=== PATIENT | male | born 1945 | race Caucasian/White ===

== ENCOUNTER 2019-05-12 10:00 | Outpatient (RCR) | payer MEDICARE, SELFPAY ==
--- NOTE | 2019-05-13 12:15 | PCCPR ---
Pt called and stated they have had second hand exposure to COVID19. Their grandson was in direct contact and they have since been in contact with him. Pt plans to hold Cardiac Rehab indefinitely.
--- NOTE | 2019-05-21 09:30 | PCCPR ---
Program is temporarily suspended due to COVID outbreak.
--- NOTE | 2019-05-28 13:35 | PCCPR ---
Called patient in regards to the temporary closure of our department continuing until at least June 25. Patient is doing well and states he is walking daily. He states he is going to start riding his bike more with his brothers. States he is feeling the best he's felt in a long time. Will mail patient temporary home exercise information. Will continue to follow patient weekly.
--- NOTE | 2019-06-04 10:36 | PCCPR ---
Called Matt today for weekly check. Matt stated that he did receive the exercise guidelines in the mail and is walking his dog daily and doing yard work and work around the house. Matt stated that he feels good and does continue to have a little soreness in his chest every now and then. Matt is currently 8 weeks post surgery so assured him that this was normal but if the pain did not go away than he should contact his physician.
--- NOTE | 2019-06-10 14:35 | PCCPR ---
Spoke with Matt states he has been walking the dog daily 15-30 min walk. He has also been doing yard work and projects. States he has carried some 5 gallon buckets filled with rock. discouraged him from carrying such a heavy bucket for now and encouraged him to clarify that with his MD. Most likely should not lift over 30 lbs until he is passed 12 weeks. He hopes to return to his [employer] he carries a drum of 15 lbs. Reviewed the use of free weight strength trng and where to find that in his packet of home materials he was eager to get that started.
--- NOTE | 2019-06-25 13:49 | PCCPR ---
Weekly update call-Left message informing patient of continued closure through the month of June due to the extension of the prison in [facility] order.
--- NOTE | 2019-07-24 14:24 | PCCPR ---
Called today to for bi-weekly check, did not answer, message left.
== END 2019-05-12 23:59 | disposition home or self-care (01) ==
LOC: ANHCPREHAB 10:00
PROVIDERS: PCP Family Medicine; Visit Provider Specialist
DX: Z95.2 Presence of prosthetic heart valve (principal)
CPT/HCPCS: 93798

== ENCOUNTER 2019-07-15 12:52 | Outpatient (RCR) | payer MEDICARE, SELFPAY ==
[2019-05-19 14:48] LABS: INR 2.6; Prothrombin Time 27.1 Seconds (11.1-14.7)
[2019-06-06 13:32] LABS: INR 2.4; Prothrombin Time 25.7 Seconds (11.1-14.7)
[2019-06-30 16:15] LABS: INR 1.4; Prothrombin Time 16.7 Seconds (11.1-14.7)
[2019-07-15 13:17] LABS: INR 1.7; Prothrombin Time 19.6 Seconds (11.1-14.7)
== END 2019-08-17 23:59 | disposition home or self-care (01) ==
LOC: ANHLAB 12:52
PROVIDERS: Visit Provider Specialist
DX: Z51.81 Encounter for therapeutic drug level monitoring (principal); Z95.4 Presence of other heart-valve replacement; Z79.01 Long term (current) use of anticoagulants
CPT/HCPCS: 36415; 85610

== ENCOUNTER 2019-08-04 14:24 | Outpatient (CLI) | payer MEDICARE, SELFPAY ==
--- NOTE | ~2019-08-04 | CT_ITS ---
EXAMINATION: CT abdomen pelvis wo con DATE: 08/04/2019 15:16 INDICATION: Bilateral kidney stones. TECHNIQUE: Computed tomography (CT) of the abdomen and pelvis was performed without intravenous contr ast. Automated exposure control and iterative reconstruction technique were employed. The dose-length product was 477.93 mGy-cm. COMPARISON: CT abdomen and pelvis 03/07/2019 FINDINGS: The visualized portions of the lung bases demonstrate mild atelectasis. A calcified right l will nodule is consistent with old granulomatous disease. No pleural effusion. The heart size is ophelia l. There are coronary artery calcifications. No pericardial effusion. The liver, gallbladder, and guerrero creas are normal. Calcifications in the spleen are consistent with old granulomatous disease. The adr enal glands and right kidney are normal. There are 3 stones in left kidney measuring up to 5 mm. The prostate is mildly enlarged. There is diverticulosis of the colon without evidence of diverticulitis. There are no dilated loops of bowel. The appendix is normal. 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 There are no pa thologically enlarged lymph nodes. There is no free intraperitoneal fluid. There is a small right ing uinal hernia containing fat. There are changes of anterior and posterior fusion procedures at L4-L5. There is moderate lumbar spondylosis. There are bridging endplate osteophytes at multiple levels in t he thoracic spine, consistent with diffuse idiopathic skeletal hyperostosis (DISH). IMPRESSION: 1. Nonobstructing left kidney stones. Reviewed, dictated and finalized at location E.
--- NOTE | ~2019-08-04 | XR_ITS ---
EXAMINATION: XR abdomen/kub 1V DATE: 08/04/2019 14:46 INDICATION: Bilateral kidney stones. TECHNIQUE: A supine view of the abdomen on 2 radiographs was obtained. COMPARISON: CT abdomen and pelvis 08/04/2019 FINDINGS: There are no dilated loops of bowel. There are phleboliths in the pelvis. There are 5 mm an d 3 mm stones in left kidney. There are changes of posterior fusion procedure at L4-L5. IMPRESSION: 1. Left kidney stones. Reviewed, dictated and finalized at location E. IMPRESSION: 1. Left kidney stones.
== END 2019-08-04 14:25 | disposition home or self-care (01) ==
LOC: ANHIMG 14:27
PROVIDERS: Visit Provider Urology
DX: N20.0 Calculus of kidney (principal)
CPT/HCPCS: 74018; 74176

== ENCOUNTER 2019-09-01 11:23 | Outpatient (CLI) | payer MEDICARE, SELFPAY ==
[2019-09-01 11:59] LABS: Prothrombin Time 12.7 Seconds (11.1-14.7)
[2019-09-01 12:00] LABS: Partial Thromboplastin Time 26.9 SECONDS (22.3-36.8)
== END 2019-09-01 11:24 | disposition home or self-care (01) ==
PROVIDERS: Visit Provider Urology
DX: N20.0 Calculus of kidney (principal)
CPT/HCPCS: 36415; 85610; 85730; 87086

== ENCOUNTER 2019-09-03 00:51 | Outpatient (CLI) | payer MEDICARE, SELFPAY ==
[2019-09-03 18:07] LABS: SARS-CoV-2 RNA PCR Negative
== END 2019-09-03 00:52 | disposition home or self-care (01) ==
LOC: ANHCOVIDDT 00:51
PROVIDERS: Visit Provider Urology
DX: Z01.812 Encounter for preprocedural laboratory examination (principal); Z11.59 Encounter for screening for other viral diseases
CPT/HCPCS: 87635; C9803; U0003

== ENCOUNTER 2019-09-05 02:17 | Day surgery (SDC) | payer MEDICARE, SELFPAY ==
[2019-08-28 11:03] VITALS: BMI 33.2
--- NOTE | ~2019-09-05 | XR_ITS ---
EXAMINATION: XR abdomen/kub 1V DATE: 09/05/2019 06:28 INDICATION: Nephrolithiasis for planned lithotripsy TECHNIQUE: A supine view of the abdomen on 2 radiographs was obtained. COMPARISON: 08/04/2019 FINDINGS: 5 mm,, 3 mm and 2 mm stones are visible at the lower pole of the left kidney. No other urolithiasis. Atherosclerotic calcifications and several phleboliths in the pelvis. Normal bowel gas pattern. L5-S1 posterior spinal fusion with bilateral vertical liberty and pedicle screw fixation. IMPRESSION: 1. Left nephrolithiasis. Reviewed, dictated and finalized at location A. IMPRESSION: 1. Left nephrolithiasis.
[2019-09-05 06:39] VITALS: BP 141/69; PULSE 68; RESP 16; TEMP 36.3; O2SAT 97
[2019-09-05] MEDS: LACTATED RINGERS 1,000 ML 30 ML IV CONT ×2 (06:39→08:17)
--- NOTE | 2019-09-05 06:52 | WPDANESEPPF ---
Anes - Initial Pre Proc Eval Procedure: Operation Date: 09/05/19 07:30 Proposed Procedures p Left Renal Extracorporeal Shock Wave Lithotripsy - Dario Shaikh MD Date/Time: 09/05/19 06:52 Surgeon: Dario Shaikh MD Pre Op Diagnosis: Left Renal Calculus Patient Data Age: 74 Gender: M Height: 5 ft 9 in Weight: 102.1 kg Allergies Allergy/AdvReac Type Severity Reaction Status Date / Time No Known Allergies Allergy Verified 08/28/19 10:14 Home Medications Medication Instructions Recorded Confirmed Type aspirin 1 tablet PO HS 01/27/19 08/28/19 History fish,bora,flax oils-om3,6,9no1 1 cap PO HS 03/13/19 08/28/19 History [[place] 3-6-9 Complex] multivitamin,za-vdwz-tgddbrbs 1 tablet PO DAILY 08/28/19 08/28/19 History [Complete Multivitamin] omeprazole magnesium [Prilosec OTC] 20 mg PO HS 08/28/19 08/28/19 History Patient hx anesthesia problems: none Family hx anesthesia problems: none [facility] Past Medical History Medical History Pryor's esophagus with dysplasia Bilateral nephrolithiasis Chronic GERD Heart murmur Nonrheumatic aortic (valve) stenosis Severe aortic stenosis TIA (transient ischemic attack) Surgical History Surgical History S/P aortic valve replacement Family History Family History Mother , 94 Family history of Alzheimer's disease Father S/P CABG x 4 currently alive-97 y/o Other Family history of arthritis Social History Social History Smoking packs per day: 1 Smoking cigarettes per day: 20.0 Years smoked: 5 Smoking pack-years: 5.00 Smoking status: Former smoker Tobacco type: cigarettes Second hand tobacco smoke exposure: No Smoking end date: 02/26/71 Alcohol intake: current Drinks per week: 5 Alcohol use details: BEER Substance use: never Substance use type: does not use Living arrangements: with family Gender identity (if verbalized by the patient): Male Spiritual care concerns: No Anes - Eval Final PreProcedure Day of Procedure 09/05/19 06:52 Patient weight: obese Heart: regular rate and rhythm Lungs: clear to auscultation Airway: Mallampati scale class II and special considerations poor opening Neurological: alert and oriented Last oral intake: >/= 8 hours ASA classification: III Emergent: no Anesthetic plan: proceed Anesthesia type and monitoring: general LMA and standard monitoring Informed Consent: The patient's anesthetic plan and its attendant risks and benefits were discussed with the patient/family/POA. Questions were solicited and answers provided to the satisfaction of the patient/family/POA.
--- NOTE | 2019-09-05 07:16 | WPDHPUPDATE1 ---
History and Physical Update Update Date/Time: 09/05/19 07:16 History and Physical has been reviewed, including an updated exam of the patient. There are NO changes in the patient's condition. Risks, benefits, and alternatives have been discussed and questions answered. Patient agrees to proceed with procedure.
[2019-09-05] MEDS: ceFAZolin 2 GM/D5W 50 ML 2 GM/50 ML BAG IVPB (07:27)
[2019-09-05 08:20] VITALS: BP 135/82; PULSE 67; RESP 10; TEMP 36.2; O2SAT 100
[2019-09-05 08:39] VITALS: BP 146/87; PULSE 64; RESP 10; O2SAT 98
[2019-09-05 08:55] VITALS: BP 146/89; PULSE 55; RESP 10; O2SAT 99
[2019-09-05 09:15] VITALS: BP 134/74; PULSE 60; RESP 16
--- NOTE | 2019-09-05 09:22 | PM.PROC ---
Procedure Note - Detailed Date of procedure: 09/05/19 Pre-op diagnosis: Left Renal Calculus Post-op diagnosis: same Procedure performed: Lithotripsy of left renal calculus 2000 shocks to the larger 8 mm stone. Five hundred shocks to the lower pole stone measuring 3-4 mm Description of procedure: Patient was taken to the operative suite and correctly identified. Once anesthesia was obtained the larger stone was visualized. And 2000 shocks appear to be for the fragmentation. We then focused on lower pole stone and gave an additional 500 shocks. Patient tolerated procedure well without complications and was taken recovery room stable condition. He is given the standard post lithotripsy instructions no follow-up in about 10-14 days with a KUB. If he develops any problems he will call us so we can deal with appropriately Anesthesia: GLMA Surgeon: Dario Shaikh MD Drains: No Packing: No Pathology: none sent Complications: No immediate complications Condition: stable Disposition: PACU
[2019-09-05 09:30] VITALS: BP 133/72; PULSE 54; RESP 14
== END 2019-09-05 09:56 | disposition home or self-care (01) ==
PROVIDERS: Visit Provider Urology
PROC: (CPT 50590; principal; 2019-09-05 07:30)
DX: N20.0 Calculus of kidney (principal); K21.9 Gastro-esophageal reflux disease without esophagitis; I35.0 Nonrheumatic aortic (valve) stenosis; Z86.73 Personal history of transient ischemic attack (TIA), and cerebral infarction without residual deficits; Z79.82 Long term (current) use of aspirin; Z87.891 Personal history of nicotine dependence; E66.9 Obesity, unspecified; Z68.33 Body mass index [BMI] 33.0-33.9, adult
CPT/HCPCS: 50590; 74018; J0131; J0690; J1100; J2405; J2704; J3010; J7120

== ENCOUNTER 2019-09-18 13:31 | Outpatient (CLI) | payer MEDICARE, SELFPAY ==
--- NOTE | ~2019-09-18 | XR_ITS ---
XR abdomen/kub 1V DATE: 09/18/2019 13:46 INDICATION: Bilateral kidney stones TECHNIQUE: AP projection, 2 views COMPARISON: 09/05/2019 KUB FINDINGS: There are are 2 small calcifications overlying the lower pole of left kidney. A larger calc ification overlying the mid lower left kidney on 09/05/2019 is not observed in No obvious right renal calcifications are noted. No evidence of bowel obstruction. Status post bilateral L5-S1 posterior fusion. Degenerative changes of the thoracic and lumbar spine. The kidney on the current examination; this appears to be currently situated at the left ureterovesic al junction. IMPRESSION: Approximately 4 mm calcified calculus at left renal vesical junction Mild nonobstructive left nephrolithiasis Reviewed, dictated and finalized at Location A. Reviewed, dictated and finalized at location B. IMPRESSION: Approximately 4 mm calcified calculus at left renal vesical junctio n Mild nonobstructive left nephrolithiasis
== END 2019-09-18 13:32 | disposition home or self-care (01) ==
LOC: ANHIMG 13:36
PROVIDERS: Visit Provider Urology
DX: N20.2 Calculus of kidney with calculus of ureter (principal)
CPT/HCPCS: 74018

== ENCOUNTER 2019-10-20 13:32 | Outpatient (CLI) | payer MEDICARE, SELFPAY ==
--- NOTE | ~2019-10-20 | XR_ITS ---
EXAMINATION: XR abdomen/kub 1V DATE: 10/20/2019 13:55 INDICATION: Bilateral renal stones TECHNIQUE: A supine view of the abdomen on 2 radiographs was obtained. COMPARISON: 09/18/[address] dated 08/04/2019 FINDINGS: 2 mm stone projecting over the lower pole of the left kidney. 4 mm stone in the region of the left ur eterovesicular junction is no longer visualized. There is a new 8 x 6 mm cluster of calcifications in jected over the region of the right ureterovesicular junction although no more proximal right-sided u rolithiasis was evident on the prior studies suggesting this is either within the bladder or superimp osed loop of bowel. Otherwise unchanged pattern of phleboliths in the pelvis. Right lower lobe calcif ied pulmonary nodule projecting over the right cardiophrenic angle. L4 laminectomy and L4-L5 instrume nted posterior spinal fusion with bilateral vertical liberty and pedicle screw fixation. IMPRESSION: 1. 2 mm stone at the lower pole of the left kidney. Prior 4 mm stone at the left ureterovesicular monica ction is no longer present at this location. 2. New 8 x 6 mm cluster of calcifications in the right hemipelvis without evident correlate on the pr ior radiographs which could represent either prior left-sided stones now in the right side of the ivonne dder or small amount of high attenuation material in the rectum. Reviewed, dictated and finalized at location A. IMPRESSION: 1. 2 mm stone at the lower pole of the left kidney. Prior 4 mm stone at the lef t ureterovesicular junction is no longer present at this location. 2. New 8 x 6 mm cluster of calcifications in the right hemipelvis without evide nt correlate on the prior radiographs which could represent either prior left-s ided stones now in the right side of the bladder or small amount of high attenu ation material in the rectum.
== END 2019-10-20 13:33 | disposition home or self-care (01) ==
PROVIDERS: Visit Provider Urology
DX: N20.2 Calculus of kidney with calculus of ureter (principal)
CPT/HCPCS: 74018

== ENCOUNTER 2020-05-28 09:06 | Outpatient (CLI) | payer MEDICARE, SELFPAY ==
[2020-05-28 09:40] LABS: Alanine Aminotransferase 28 U/L (4-50); Albumin Level 4.3 g/dL (3.5-5.1); Alkaline Phosphatase 73 U/L (38-126); Anion Gap 5 mmol/L (8-16); Aspartate Amino Transferase 29 U/L (17-59); Bilirubin,Total 1.2 mg/dL (0.2-1.3); Blood Urea Nitrogen 13 mg/dL (9-20); Calcium 8.8 mg/dL (8.4-10.2); Carbon Dioxide 28 mmol/L (22-30); Chloride 108 mmol/L (98-107); Cholesterol 249 mg/dL (0-200); Estimated Glomerular Filt Rate > 60; Glucose 95 mg/dL (75-110); HDL Direct 55 mg/dL; Potassium 4.5 mmol/L (3.4-5.0); Sodium 141 mmol/L (137-145); Triglycerides 136 mg/dL (<150)
[2020-05-28 09:49] LABS: Basophils Absolute Auto 0.1 K/mm3 (0.0-0.1); Basophils Percent Auto 0.9 % (0.2-1.2); Eosinophils Absolute Auto 0.2 K/mm3 (0-0.3); Hematocrit 44.8 % (42.0-52.0); Hemoglobin 15.3 g/dL (14.0-18.0); Immature Granulocyte Absolute 0.02 K/mm3 (0.00-0.031); Immature Granulocyte Percent A 0.3 % (0-0.5); Lymphocytes Absolute Auto 2.57 K/mm3 (0.9-3.2); Lymphocytes Percent Auto 36.6 % (18.3-44.2); Mean Corpuscular HGB Conc 34.2 g/dl (32-36); Mean Corpuscular Hemoglobin 31.5 pg (26-34); Mean Corpuscular Volume 92.2 fl (80-100); Mean Platelet Volume 9.8 fl (7.4-10.4); Monocytes Absolute Auto 0.5 K/mm3 (0.1-0.6); Monocytes Percent Auto 6.7 % (2.6-8.5); Neutrophils Absolute Auto 3.7 K/mm3 (1.3-6.7); Neutrophils Percent Auto 52.5 % (45.5-73.1); Platelet Count Result 255 k/mm3 (150-375); Red Blood Count 4.86 M/mm3 (4.6-6.20); Red Cell Distribution Width 13.3 % (11.5-14.5)
[2020-05-28 09:51] LABS: Hemoglobin A1C 5.5 % (<5.7)
[2020-05-28 09:52] LABS: Add Urine Microscopic? NO; Appearance Urine Clear (Clear); Bilirubin Urine Negative (Negative); Blood Urine Negative (Negative); Color Urine Yellow (Yellow); Glucose Urine UA Negative (Negative); Ketones Urine Negative (Negative); LDL Cholesterol Direct 158 mg/dL; Leukocyte Esterase Ur Negative LEU/UL (NEGATIVE); Nitrate Urine Negative (Negative); Protein Urine Negative (Negative); Specific Grav Ur 1.017 (1.001-1.035); Urobilinogen Urine Negative mg/dL (<2.0)
[2020-05-28 12:53] LABS: Prostate Specific Antigen 2.1 ng/mL (< OR = 4.0)
[2020-05-28 13:29] LABS: Folic Acid > 20.0 ng/mL (2.76->20)
== END 2020-05-28 09:07 | disposition home or self-care (01) ==
LOC: ANHLAB 09:14
PROVIDERS: Visit Provider Nurse Practitioner Family
DX: K21.9 Gastro-esophageal reflux disease without esophagitis (principal); R01.1 Cardiac murmur, unspecified; R53.83 Other fatigue; R73.01 Impaired fasting glucose; E78.2 Mixed hyperlipidemia; R35.1 Nocturia; Z12.5 Encounter for screening for malignant neoplasm of prostate
CPT/HCPCS: 36415; 80053; 80061; 81003; 82607; 82746; 83036; 84153; 84443; 85025; G0103

== ENCOUNTER 2020-07-13 09:01 | Outpatient (CLI) | payer MEDICARE, SELFPAY ==
--- NOTE | ~2020-07-13 | CT_ITS ---
EXAMINATION: CT brain wo con DATE: 07/13/2020 09:27 INDICATION: Dizziness. Giddiness. Lack of coordination. Blurry eyes. TECHNIQUE: Computed tomography (CT) of the head was performed without intravenous contrast. The mA wa s adjusted according to patient size. Iterative reconstruction technique was employed. Exam dose: 60 5.33 mGy-cm total exam DLP. COMPARISON: 03/09/2018 MRI brain/brainstem 03/08/2018 CT brain 03/08/2018 CTA brain/carotid FINDINGS: Bilateral carotid siphon internal carotid artery calcifications. Bilateral vertebral artery calcifications. No intracranial mass lesion or hemorrhage or cerebrovascular accident is evident. No midline shift or mass effect. Normal ventricular size. No subdural or epidural hematoma. Included paranasal sinuses and mastoid air cells are normally developed and aerated. No fracture or bone destruction of the cranial vault. IMPRESSION: No acute abnormality or significant change since 03/08/2018 Reviewed, dictated and finalized at Location A. Reviewed, dictated and finalized at location B.
== END 2020-07-13 09:02 | disposition home or self-care (01) ==
LOC: ANHIMG 09:02
PROVIDERS: Visit Provider Family Medicine
DX: R42 Dizziness and giddiness (principal)
CPT/HCPCS: 70450

== ENCOUNTER → 2020-09-04 00:15 | Outpatient (CLI) | payer MEDICARE, SELFPAY ==
[2020-09-04 21:20] LABS: SARS-CoV-2 RNA PCR Negative
== END ==
PROVIDERS: Visit Provider Internal Medicine Gastroenterology
DX: Z01.812 Encounter for preprocedural laboratory examination (principal); Z20.822 Contact with and (suspected) exposure to COVID-19
CPT/HCPCS: C9803; U0003; U0005

== ENCOUNTER 2020-09-07 01:25 | Day surgery (SDC) | payer MEDICARE, SELFPAY ==
[2020-08-20 11:46] VITALS: BMI 30.7
[2020-09-07 10:57] VITALS: BP 134/80; PULSE 66; RESP 20; TEMP 36.4; O2SAT 96
[2020-09-07] MEDS: LACTATED RINGERS 1,000 ML 150 ML IV CONT (11:00)
[2020-09-07] MEDS: AMPICILLIN 2 GM/NS 100 ML 2 GM/100 ML BAG IVPB (11:01)
--- NOTE | 2020-09-07 11:15 | WPDANESEPPF ---
Anes - Initial Pre Proc Eval Procedure: Operation Date: 09/07/20 12:15 Proposed Procedures p Esophagogastroduodenoscopy - Buck River MD Date/Time: 09/07/20 11:15 Surgeon: Buck River MD Pre Op Diagnosis: Pryor's esophagus Patient Data Age: 75 Gender: M Height: 1.78 m Weight: 101.6 kg Last Vital Signs Temp 36.4 C 09/07/20 10:57 Pulse 66 09/07/20 10:57 Resp 20 09/07/20 10:57 BP 134/80 09/07/20 10:57 Pulse Ox 96 09/07/20 10:57 Allergies Allergy/AdvReac Type Severity Reaction Status Date / Time No Known Allergies Allergy Verified 09/07/20 10:54 Home Medications Medication Instructions Recorded Confirmed Type aspirin 1 tablet PO DAILY 01/27/19 08/20/20 History fish,bora,flax oils-om3,6,9no1 1 cap PO DAILY 03/13/19 08/20/20 History [[place] 3-6-9 Complex] Complete Multivitamin 1 tablet PO DAILY 08/28/19 08/20/20 History omeprazole magnesium [Prilosec OTC] 20 mg PO DAILY 08/20/20 08/20/20 History Patient hx anesthesia problems: none Family hx anesthesia problems: none PMFSH Past Medical History Medical History Pryor's esophagus with dysplasia Bilateral nephrolithiasis Chronic GERD Heart murmur Nonrheumatic aortic (valve) stenosis Severe aortic stenosis TIA (transient ischemic attack) Surgical History Surgical History History of melanoma S/P aortic valve replacement Family History Family History Mother , 94 Family history of Alzheimer's disease Father S/P CABG x 4 currently alive-97 y/o Other Family history of arthritis Social History Social History Smoking packs per day: 1 Smoking cigarettes per day: 20.0 Years smoked: 5 Smoking pack-years: 5.00 Smoking status: Former smoker Tobacco type: cigarettes Second hand tobacco smoke exposure: No Smoking end date: 02/26/71 Alcohol intake: current Drinks per week: 5 Alcohol use details: socially Substance use: never Substance use type: does not use Living arrangements: with family Gender identity (if verbalized by the patient): Male Spiritual care concerns: No Anes - Eval Final PreProcedure Day of Procedure 09/07/20 11:15 Patient weight: obese Heart: regular rate and rhythm Lungs: clear to auscultation and normal air movement Airway: Mallampati scale class II Neurological: alert and oriented Last oral intake: >/= 8 hours ASA classification: III Emergent: no Anesthetic plan: proceed Anesthesia type and monitoring: general GIVS and standard monitoring Informed Consent: The patient's anesthetic plan and its attendant risks and benefits were discussed with the patient/family/POA. Questions were solicited and answers provided to the satisfaction of the patient/family/POA.
--- NOTE | 2020-09-07 12:16 | PM.HPGS ---
History of Present Illness History of Present Illness Consent: Risks, benefits, and alternatives have been discussed and questions answered. Patient agrees to proceed with procedure. Chief complaint: Pryor's esophagus Narrative: Janes Smith is a 75 year old male with Pryor's (treated endoscopically ~ 10 years ago because dysplasia) with several EGDs since then with last one about 3 years ago without dysplasia and used to see Dr Wagner, GERD controlled with omeprazole. Review of Systems Constitutional: Constitutional: Denies headache(s) and Denies weakness Eyes: Eyes: Denies blurry vision ENT: Reports Normal hearing present, Denies headache(s) and Denies neck pain Cardiovascular: Cardiovascular: Denies chest pain and Denies dyspnea Respiratory: Respiratory: Denies dyspnea Gastrointestinal: Gastrointestinal: Reports no additional gastrointestinal complaints Genitourinary: Genitourinary: Denies dysuria Musculoskeletal: Musculoskeletal: Denies neck pain Integumentary/Breasts: Skin/Breast: Denies dry skin Neurologic: Reports Normal hearing present, Denies headache(s) and Denies weakness Psychiatric: Psychiatric: Denies anxiety Endocrine: Endocrine: Denies change in body appearance Hematologic/Lymphatic: Hematologic/Lymphatic: Denies easy bleeding Allergic/Immunologic: Allergic/Immunologic: Denies urticaria PMFSH Past Medical History Medical History Pryor's esophagus with dysplasia Bilateral nephrolithiasis Chronic GERD Heart murmur Nonrheumatic aortic (valve) stenosis Severe aortic stenosis TIA (transient ischemic attack) Surgical History Surgical History History of melanoma S/P aortic valve replacement Family History Family History Mother , 94 Family history of Alzheimer's disease Father S/P CABG x 4 currently alive-97 y/o Other Family history of arthritis Social History Social History Smoking packs per day: 1 Smoking cigarettes per day: 20.0 Years smoked: 5 Smoking pack-years: 5.00 Smoking status: Former smoker Tobacco type: cigarettes Second hand tobacco smoke exposure: No Smoking end date: 02/26/71 Alcohol intake: current Drinks per week: 5 Alcohol use details: socially Substance use: never Substance use type: does not use Living arrangements: with family Gender identity (if verbalized by the patient): Male Spiritual care concerns: No Meds Home Medications and Allergies Home Medications Medication Instructions Recorded Confirmed Type aspirin 1 tablet PO DAILY 01/27/19 08/20/20 History fish,bora,flax oils-om3,6,9no1 1 cap PO DAILY 03/13/19 08/20/20 History [[place] 3-6-9 Complex] Complete Multivitamin 1 tablet PO DAILY 08/28/19 08/20/20 History omeprazole magnesium [Prilosec OTC] 20 mg PO DAILY 08/20/20 08/20/20 History Allergies Allergy/AdvReac Type Severity Reaction Status Date / Time No Known Allergies Allergy Verified 09/07/20 10:54 Vital Signs Vital Signs - 24 hr 09/07/20 10:57 Temperature 97.6 F Pulse Rate 66 Respiratory Rate 20 Blood Pressure 134/80 Pulse Oximetry 96 Exam Const: General: comfortable and no acute distress HENMT: General nose exam: Normal nares present Eyes: General: appearance normal, both eyes and all related structures Neck: Neck: no JVD Resp: Auscultation: clear to auscultation bilaterally Cardio: Rate: regular rate Rhythm: regular rhythm GI: Inspection: non-distended GI Palp: Yes Soft to palpation Skin: General skin exam: normal color Neuro: General: gait normal Speech: normal speech Extrem: General: normal to inspection Psych: Mental Status: mental status grossly normal Assessment and Plan Assessment and plan (1) Chronic
[2020-09-07 12:45] VITALS: BP 124/83; PULSE 58; RESP 19; O2SAT 98
[2020-09-07 12:55] VITALS: BP 133/78; PULSE 56; RESP 21; O2SAT 98
[2020-09-07 13:05] VITALS: BP 133/80; PULSE 55; RESP 18; O2SAT 98
== END 2020-09-07 13:16 | disposition home or self-care (01) ==
PROVIDERS: Visit Provider Internal Medicine Gastroenterology
PROC: 0DJ08ZZ Inspection of Upper Intestinal Tract, Via Natural or Artificial Opening Endoscopic (ICD-10-PCS; CPT 43235; principal; 2020-09-07 12:15)
DX: K21.00 Gastro-esophageal reflux disease with esophagitis, without bleeding (principal); K22.70 Barrett's esophagus without dysplasia; K44.9 Diaphragmatic hernia without obstruction or gangrene; Z79.82 Long term (current) use of aspirin; I35.8 Other nonrheumatic aortic valve disorders; Z86.73 Personal history of transient ischemic attack (TIA), and cerebral infarction without residual deficits; Z95.2 Presence of prosthetic heart valve; Z87.891 Personal history of nicotine dependence; E66.9 Obesity, unspecified; Z68.32 Body mass index [BMI] 32.0-32.9, adult
CPT/HCPCS: 43239; 88305; 88313; J0290; J1580; J2001; J2704; J7120

== ENCOUNTER 2020-09-09 14:28 | Emergency (ER) | payer MEDICARE, SELFPAY ==
[2020-09-09 14:43] VITALS: BP 158/87; PULSE 70; RESP 18; TEMP 36.6; O2SAT 98
[2020-09-09 14:58] LABS: Basophils Absolute Auto 0.1 K/mm3 (0.0-0.1); Basophils Percent Auto 0.9 % (0.2-1.2); Eosinophils Absolute Auto 0.1 K/mm3 (0-0.3); Eosinophils Percent Auto 1.5 % (0-4.4); Hematocrit 43.1 % (42.0-52.0); Hemoglobin 14.4 g/dL (14.0-18.0); Immature Granulocyte Absolute 0.01 K/mm3 (0.00-0.031); Immature Granulocyte Percent A 0.2 % (0-0.5); Lymphocytes Absolute Auto 1.48 K/mm3 (0.9-3.2); Mean Corpuscular HGB Conc 33.4 g/dl (32-36); Mean Corpuscular Hemoglobin 30.8 pg (26-34); Mean Corpuscular Volume 92.3 fl (80-100); Mean Platelet Volume 9.8 fl (7.4-10.4); Monocytes Absolute Auto 0.3 K/mm3 (0.1-0.6); Monocytes Percent Auto 6.4 % (2.6-8.5); Neutrophils Absolute Auto 3.3 K/mm3 (1.3-6.7); Platelet Count Result 221 k/mm3 (150-375); Red Blood Count 4.67 M/mm3 (4.6-6.20); Red Cell Distribution Width 13.1 % (11.5-14.5); White Blood Count 5.3 K/mm3 (4.5-10.0)
[2020-09-09 15:08] LABS: Alanine Aminotransferase 40 U/L (4-50); Albumin Level 4.4 g/dL (3.5-5.1); Alkaline Phosphatase 84 U/L (38-126); Anion Gap 11 mmol/L (8-16); Aspartate Amino Transferase 29 U/L (17-59); Bilirubin,Total 1.4 mg/dL (0.2-1.3); Blood Urea Nitrogen 15 mg/dL (9-20); Calcium 9.4 mg/dL (8.4-10.2); Carbon Dioxide 23 mmol/L (22-30); Chloride 107 mmol/L (98-107); Estimated CRCL calculation 68 ml/min; Estimated Glomerular Filt Rate > 60; Glucose 99 mg/dL (75-110); Potassium 3.9 mmol/L (3.4-5.0); Sodium 141 mmol/L (137-145)
[2020-09-09 15:23] LABS: Prothrombin Time 12.7 Seconds (11.1-14.7)
[2020-09-09 15:26] LABS: Partial Thromboplastin Time 26.4 SECONDS (22.3-36.8)
[2020-09-09 15:31] VITALS: BP 138/82; PULSE 74; RESP 18; O2SAT 96
--- NOTE | 2020-09-09 15:59 | ED.GIBLEED ---
HPI - GI Bleed General Chief complaint: GI Bleed Stated complaint: Dark Stools,Dizzy Time Seen by Provider: 09/09/20 15:32 Source: RN notes reviewed History of Present Illness HPI Narrative: Patient presents to emergency room from home for black stool. Patient states he had a bowel movement this morning that was black in color states he had had endoscopy performed by Dr. Vigil 2 days ago and the concern was a dark stool today. He states that with this he has had some mild dizziness however the patient states he has been having chronic dizziness since he received a second Covid shot in April he states has been worked up by his PCP for this and supposed be seeing neurology. He denies any new dizziness he denies any fevers or chills chest pain shortness of breath abdominal pain nausea or vomiting or any other symptoms denies any blood thinner use Related Data Home Medications Medication Instructions Recorded Confirmed aspirin 1 tablet PO DAILY 01/27/19 08/20/20 fish,bora,flax oils-om3,6,9no1 1 cap PO DAILY 03/13/19 08/20/20 [[place] 3-6-9 Complex] Complete Multivitamin 1 tablet PO DAILY 08/28/19 08/20/20 omeprazole magnesium [Prilosec OTC] 20 mg PO DAILY 08/20/20 08/20/20 Allergies Allergy/AdvReac Type Severity Reaction Status Date / Time No Known Allergies Allergy Verified 09/09/20 15:29 Review of Systems Review of Systems: Narrative: Gen.: Denies fevers or chills ENT: Denies congestion Respiratory: Denies shortness of breath or cough CV: Denies chest pain or palpitations GI: Denies abdominal pain nausea, emesis or diarrhea reports black stool Musculoskeletal: Denies back pain or muscle pain Neuro: Denies numbness, tingling, weakness or focal weakness reports chronic dizziness Skin: Denies rash Except as documented, all other systems reviewed and negative [facility] Past Medical History Medical History Pryor's esophagus with dysplasia Bilateral nephrolithiasis Chronic GERD Heart murmur Nonrheumatic aortic (valve) stenosis Severe aortic stenosis TIA (transient ischemic attack) Surgical History Surgical History History of melanoma S/P aortic valve replacement Family History Family History Mother , 94 Family history of Alzheimer's disease Father S/P CABG x 4 currently alive-97 y/o Other Family history of arthritis Social History Social History Smoking packs per day: 1 Smoking cigarettes per day: 20.0 Years smoked: 5 Smoking pack-years: 5.00 Smoking status: Former smoker Tobacco type: cigarettes Second hand tobacco smoke exposure: No Smoking end date: 02/26/71 Alcohol intake: current Drinks per week: 5 Alcohol use details: socially Substance use: never Substance use type: does not use Gender identity (if verbalized by the patient): Male Spiritual care concerns: No Exam Narrative: Exam Narrative: APPEARANCE: No acute distress, nontoxic, resting in bed EYES: EOMI HEENT: Normocephalic, atraumatic, OMM RESPIRATORY: No respiratory distress Clear to auscultation bilaterally with no rhonchi wheezing or rales. CARDIOVASCULAR: Regular rate and rhythm without murmurs rubs or gallops. ABDOMINAL: Soft, nontender, nondistended, no rebound or guarding Rectal: Hemorrhoids present with no bleeding no fissures, small amount of dark black stool is Hemoccult positive MUSCULOSKELETAl: Moves all extremities. No clubbing, cyanosis or edema. NEURO: Awake and alert. Following commands, speech normal, no focal deficits SKIN:: Warm, dry. No rashes lesions or abrasions PSYCHIATRIC: Normal affect/mood, Course Course Emergency Course: Reviewed old records patient with endoscopy performed on 09/07/[address] Vigil biopsies were obtained patient's hemoglobi
[2020-09-09 16:27] VITALS: BP 137/81; PULSE 65; RESP 22; O2SAT 94
== END 2020-09-09 16:29 | disposition home or self-care (01) ==
PROVIDERS: Emergency Medicine; Emergency Provider Emergency Medicine; PCP Family Medicine
DX: K92.2 Gastrointestinal hemorrhage, unspecified (principal); Z79.82 Long term (current) use of aspirin; Z87.891 Personal history of nicotine dependence; Z86.73 Personal history of transient ischemic attack (TIA), and cerebral infarction without residual deficits
CPT/HCPCS: 36415; 80053; 85025; 85610; 85730; 86850; 86900; 86901; 99283

== ENCOUNTER 2020-12-07 11:28 | Outpatient (CLI) | payer MEDICARE, SELFPAY ==
--- NOTE | ~2020-12-07 | XR_ITS ---
EXAMINATION: XR abdomen/kub 1V DATE: 12/07/2020 11:55 INDICATION: Bilateral kidney stones. TECHNIQUE: A supine view of the abdomen on 2 radiographs was obtained. COMPARISON: CT abdomen and pelvis 08/04/2019, abdomen radiographs 10/20/2019 FINDINGS: There are no dilated loops of bowel. There are phleboliths in the pelvis. There are two 3 m m stones in left kidney. There is a 9 mm calcification in the pelvis. There are changes of posterior fusion procedure at L5-S1. IMPRESSION: 1. Small left kidney stones. 2. 9 mm pelvic calcification, which may be a bladder stone or phlebolith. Reviewed, dictated and finalized at location A.
== END 2020-12-07 11:29 | disposition home or self-care (01) ==
LOC: ANHIMG 11:34
PROVIDERS: PCP Family Medicine; Visit Provider Urology
DX: N20.0 Calculus of kidney (principal)
CPT/HCPCS: 74018

== ENCOUNTER 2021-01-06 09:13 | Outpatient (CLI) | payer MEDICARE, SELFPAY ==
--- NOTE | ~2021-01-06 | XR_ITS ---
EXAMINATION: XR abdomen/kub 1V INDICATION: Bilateral kidney stones TECHNIQUE: Supine views of the abdomen were obtained on 2 radiographs. COMPARISON: CT from today and KUB dated 12/07/2020 FINDINGS: An 8 mm calcification of the pelvis is demonstrated to be within the urinary bladder on CT. There are at least two stones measuring 3 mm in the left kidney. Phleboliths are noted in the pelvis . No stones are identified along the expected courses of the ureters. There are changes of posterior fusion in the lower lumbar spine. There is mild osteoarthritis of the hips. IMPRESSION: 1. 8 mm stone in the urinary bladder. 2. Left nephrolithiasis. Reviewed, dictated and finalized at location B. MATED PROCESS OPERATOR
--- NOTE | ~2021-01-06 | CT_ITS ---
EXAMINATION: CT abdomen pelvis wo con DATE: 01/06/2021 09:34 INDICATION: Bilateral kidney stones, left flank pain TECHNIQUE: Computed tomography (CT) of the abdomen and pelvis was performed without intravenous contr ast. The dose-length product (DLP) was 1121.72 mGy-cm. Automated exposure control and iterative recon struction technique were employed. COMPARISON: 08/04/2019 FINDINGS: Minimal dependent atelectasis is present in the lung bases. The heart size is normal. Punct ate calcifications in an otherwise normal spleen likely represent healed granulomatous disease. The l iver, pancreas, gallbladder, and adrenal glands are normal. There are three nonobstructing stones of the left kidney which measure up to 4 mm. There is a 2 mm nonobstructing stone of the right kidney. N o stones are identified in the ureters. There is no hydronephrosis or hydroureter. An 8 mm stone is p resent in the bladder. There is mild circumferential wall thickening of the urinary bladder. No patho logically enlarged abdominal or pelvic lymph nodes are identified. There is no free intraperitoneal g as or evidence of bowel obstruction. There are changes of anterior and posterior fusion at L4-5. A fa t-containing umbilical hernia is noted. IMPRESSION: 1. 8 mm stone in the urinary bladder. 2. Bilateral nonobstructing nephrolithiasis. 3. Circumferential wall thickening of the bladder which could be due to cystitis and/or chronic outle t obstruction. Reviewed, dictated and finalized at location B. ANT COOKER IMPRESSION: 1. 8 mm stone in the urinary bladder. 2. Bilateral nonobstructing nephrolithiasis. 3. Circumferential wall thickening of the bladder which could be due to cystiti s and/or chronic outlet obstruction.
== END 2021-01-06 09:14 | disposition home or self-care (01) ==
LOC: ANHIMG 09:14
PROVIDERS: PCP Family Medicine; Visit Provider Urology
DX: N20.0 Calculus of kidney (principal); N21.0 Calculus in bladder
CPT/HCPCS: 74018; 74176

== ENCOUNTER 2021-02-09 12:57 | Outpatient (CLI) | payer MEDICARE, SELFPAY | END 2021-02-09 12:58 | disposition home or self-care (01) | LOC: ANHSURGERY 13:00 | PROVIDERS: PCP Family Medicine; Visit Provider Urology | DX: N21.0 Calculus in bladder (principal); Z01.818 Encounter for other preprocedural examination | CPT/HCPCS: 87086; 87088 ==

== ENCOUNTER 2021-03-01 00:42 | Day surgery (SDC) | payer MEDICARE, SELFPAY ==
[2021-02-07 14:03] VITALS: BMI 33.2
--- NOTE | 2021-02-07 14:09 | PC.NURSE ---
Report to the Outpatient Waiting Room, entrance under the green pavilion located off [facility], at time _0800 on date _02/15/21 . OR Time: _1000 . - You and your visitor will be asked a series of questions to screen for COVID 19 for your protection. - A mask is required within the hospital. - Only one visitor is allowed at this time. Patient visitors will be guided where to wait when not with patient. Preoperative COVID Testing Requirements: No COVID Test needed if: (proof is required; if not received patient will have Rapid Test prior to entry) - Patient has received COVID Vaccine at least 14 days prior to procedure date or - Patient has positive COVID test result within last 90 days of surgery date. COVID Test needed if above criteria is not met If not COVID vaccinated a COVID test must be conducted within 72 hours of surgery and patient is asked to isolate self from time of testing until procedure. You will go to the [facility] for your COVID testing. The [facility] is located at the corner of [address] [facility]. You will only be called if COVID results are positive and your surgeon may reschedule your elective surgery date. Patients may have clear liquids (water, carbonated beverages, clear teas, apple juice) until 3 hours prior to surgery with a maximum of 20 ounces. - No food from midnight until time of surgery - Infants may have breast milk until 4 hours before surgery, formula 6 hours prior to surgery. - Children will be allowed to drink immediately following surgery. If applicable, please bring a bottle or sippy cup to assist with drinking. Juice, water, soda, and popsicles are readily available. For infants on formula, please bring formula the day of surgery. Pacifiers are allowed. Take the following medications with a SIP of water the morning of surgery: ____NONE Medications to discontinue per physician __ALL VITAMINS AND SUPPLEMENTS 3 DAYS PRE OP Date to take last dose___02/11/21 Please no make-up, nail palestinian, hairspray, perfume, deodorant, or body powder the day of surgery. No jewelry (including any body piercings) or valuables the day of surgery, leave them at home. Please take a shower or bath the night before, or the morning of, surgery with an antibacterial soap. Wear comfortable, loose fitting clothing. Children are encouraged to wear pajamas. - Jewelry must be removed prior to entering the operating room. Rings and piercings that are not removed may be cut off. - The hospital will not accept responsibility for valuables. - Please leave all valuables, including medications, at home the day of surgery. If you are going home after surgery, a licensed stage driver must drive you home. - NO public transportation without another adult. - We recommend that an adult stay with you for 24 hours following discharge. - We also recommend that you do not drive, make important decision, drink alcoholic beverages, or take any drugs that were not prescribed by your health care provider for at least 24 hours after your discharge time. For Pediatric surgeries, we recommend two adults accompany the child home (only one inside the building at this time). Follow any additional instructions given to you from your surgeon. Telephone instructions given to __PATIENT and asked if any additional questions and then verbalized understanding. Patient advised to call surgeon office or pre surgery nurse liaison [phone] if any additional questions.
--- NOTE | 2021-02-16 09:26 | PC.NURSE ---
Addendum entered by Lorena Blanchard RN 02/16/21 09:35: PT ALSO INFORMED TO STOP OMGA 3 COMPLEX 02/25/21 - UNDERSTANDING VOICED. Original Note: Report to the Outpatient Waiting Room, entrance under the green pavilion located off [facility], at time ___1015____ on date _03/01/21__. OR Time: ____1215____. - You and your visitor will be asked a series of questions to screen for COVID 19 for your protection. - A mask is required within the hospital. - Only one visitor is allowed at this time. Patient visitors will be guided where to wait when not with patient. Preoperative COVID Testing Requirements: No COVID Test needed if: (proof is required; if not received patient will have Rapid Test prior to entry) - Patient has received COVID Vaccine at least 14 days prior to procedure date or - Patient has positive COVID test result within last 90 days of surgery date. COVID Test needed if above criteria is not met If not COVID vaccinated a COVID test must be conducted within 72 hours of surgery and patient is asked to isolate self from time of testing until procedure. You will go to the [facility] Testing Site for your COVID testing. The [facility] Testing site is located at the corner of [address] [facility]. You will only be called if COVID results are positive and your surgeon may reschedule your elective surgery date. Patients may have clear liquids (water, carbonated beverages, clear teas, apple juice) until 3 hours prior to surgery with a maximum of 20 ounces. - No food from midnight until time of surgery - Infants may have breast milk until 4 hours before surgery, formula 6 hours prior to surgery. - Children will be allowed to drink immediately following surgery. If applicable, please bring a bottle or sippy cup to assist with drinking. Juice, water, soda, and popsicles are readily available. For infants on formula, please bring formula the day of surgery. Pacifiers are allowed. Take the following medications with a SIP of water the morning of surgery: NONE Medications to discontinue per physician __MULTIVITAMIN Date to take last dose____02/25/21 Please no make-up, nail north korean, hairspray, perfume, deodorant, or body powder the day of surgery. No jewelry (including any body piercings) or valuables the day of surgery, leave them at home. Please take a shower or bath the night before, or the morning of, surgery with an antibacterial soap. Wear comfortable, loose fitting clothing. Children are encouraged to wear pajamas. - Jewelry must be removed prior to entering the operating room. Rings and piercings that are not removed may be cut off. - The hospital will not accept responsibility for valuables. - Please leave all valuables, including medications, at home the day of surgery. If you are going home after surgery, a licensed lumber stacker driver must drive you home. - NO public transportation without another adult. - We recommend that an adult stay with you for 24 hours following discharge. - We also recommend that you do not drive, make important decision, drink alcoholic beverages, or take any drugs that were not prescribed by your health care provider for at least 24 hours after your discharge time. For Pediatric surgeries, we recommend two adults accompany the child home (only one inside the building at this time). Follow any additional instructions given to you from your surgeon. Telephone instructions given to ____PT and asked if any additional questions and then verbalized understanding. Patient advised to call surgeon office or pre surgery nurse liaison [phone] if any additional questions.
[2021-03-01] VITALS (7 sets, daily range): BP systolic 124–144; BP diastolic 63–98; PULSE 60–73; RESP 12–16; TEMP 36.7–37; O2SAT 96–100
--- NOTE | 2021-03-01 07:15 | P.PNAN_ITS ---
Anes - Initial Pre Proc Eval Procedure: Operation Date: 03/01/21 12:15 Proposed Procedures p Cystoscopy, Bladder Stone Removal, - Dario Shaikh MD s Possible Holmium Laser Procedure - Dario Shaikh MD Date/Time: 03/01/21 07:15 Surgeon: Dario Shaikh MD Pre Op Diagnosis: bladder stones Patient Data Age: 75 Gender: M Height: 1.75 m Weight: 102.1 kg Allergies Allergy/AdvReac Type Severity Reaction Status Date / Time No Known Allergies Allergy Verified 03/01/21 10:23 Home Medications Medication Instructions Recorded Confirmed Type fish,bora,flax oils-om3,6,9no1 1 cap PO DAILY 03/13/19 03/01/21 History [[place] 3-6-9 Complex] Complete Multivitamin 1 tablet PO DAILY 08/28/19 03/01/21 History omeprazole 20 mg capsule,delayed 20 mg PO DAILY #90 cap 11/18/20 03/01/21 Rx release Patient hx anesthesia problems: none Family hx anesthesia problems: none Results Review: All pre-operative results and documents have been reviewed as part of the pre-operative evaluation. COUNTS INCLUDE 234 BEDS AT THE [facility] Past Medical History Medical History (Updated 01/10/21 @ 14:42 by Noel Littlejohn MD) Pryor's esophagus with dysplasia Bilateral nephrolithiasis Chronic GERD Heart murmur Nonrheumatic aortic (valve) stenosis Obesity Severe aortic stenosis TIA (transient ischemic attack) Surgical History Surgical History History of melanoma S/P aortic valve replacement Family History Family History Mother , 94 Family history of Alzheimer's disease Father S/P CABG x 4 currently alive-97 y/o Other Family history of arthritis Social History Social History Smoking packs per day: 1 Smoking cigarettes per day: 20.0 Years smoked: 5 Smoking pack-years: 5.00 Smoking status: Former smoker Tobacco type: cigarettes Second hand tobacco smoke exposure: No Smoking end date: 02/26/71 Alcohol intake: current Drinks per week: 6 Alcohol use details: socially Substance use: never Substance use type: does not use Living arrangements: with family Gender identity (if verbalized by the patient): Male Spiritual care concerns: No Anes - Eval Final PreProcedure Day of Procedure 03/01/21 07:15 Patient weight: obese Heart: regular rate and rhythm Lungs: clear to auscultation and normal air movement Airway: Mallampati scale Neurological: alert and oriented Last oral intake: >/= 8 hours ASA classification: III Emergent: no Anesthetic plan: proceed Anesthesia type and monitoring: general LMA Results Review: All pre-operative results and documents have been reviewed as part of the pre-operative evaluation. Informed Consent: The patient's anesthetic plan and its attendant risks and benefits were discussed with the patient/family/POA. Questions were solicited and answers provided to the satisfaction of the patient/family/POA.
[2021-03-01] MEDS: LACTATED RINGERS 1,000 ML 30 ML IV CONT (10:55)
[2021-03-01 11:03] LABS: Add Urine Microscopic? YES; Appearance Urine Clear (Clear); Bilirubin Urine Negative (Negative); Blood Urine Negative (Negative); Color Urine Yellow (Yellow); Glucose Urine UA Negative (Negative); Ketones Urine Negative (Negative); Leukocyte Esterase Ur Negative LEU/UL (Negative); Mucus Urine Rare /lpf; Nitrate Urine Negative (Negative); Protein Urine Negative (Negative); RBC Urine 0-2 /hpf (0-2); Specific Grav Ur 1.015 (1.001-1.035); Squamous Epithelial Cell Urine Rare /hpf (Few); Urobilinogen Urine Negative mg/dL (<2.0); WBC Urine 0-3 /hpf
--- NOTE | 2021-03-01 11:21 | WPDHPUPDATE1 ---
History and Physical Update Update Date/Time: 03/01/21 11:21 History and Physical has been reviewed, including an updated exam of the patient. There are NO changes in the patient's condition. Risks, benefits, and alternatives have been discussed and questions answered. Patient agrees to proceed with procedure.
[2021-03-01] MEDS: ceFAZolin 2 GM/D5W 50 ML 2 GM/50 ML BAG IVPB (11:41)
--- NOTE | 2021-03-01 12:08 | P.OP_ITS ---
Procedure Note - Detailed Date of Procedure 03/01/21 Pre-op Diagnosis bladder stones Post-op Diagnosis same Procedure Performed Cystoscopy with holmium laser of bladder stone and stone extraction Surgeon Dario Shaikh MD Anesthesia general Description of Procedure Patient is taken the operative suite correctly identified. Once anesthesia was obtained was placed in dorsal lithotomy position and prepped draped usual sterile fashion. Twenty-two Trinidadian scope was inserted in the bladder. He does have an obstructing prostate with an elevated median bar and median lobe. Upon entering the bladder there are no tumors noted. He does have a bladder calculus measuring about a cm. Using a large holmium laser fiber we fragmented stone multiple pieces and retrieved the largest ones were sent for analysis. 2% viscous lidocaine was inserted urethra patient is taken recovery stable condition. Patient will be discharged home. He will follow-up in 3-4 weeks time. Patient would benefit from finasteride if he is not on it as well most likely require a TURP in the future Drains No Packing No Pathology yes Complications No immediate complications Condition stable Disposition PACU
== END 2021-03-01 14:15 | disposition home or self-care (01) ==
PROVIDERS: PCP Family Medicine; Visit Provider Urology
PROC: 0TCB8ZZ Extirpation of Matter from Bladder, Via Natural or Artificial Opening Endoscopic (ICD-10-PCS; CPT 52352; principal; 2021-03-01 12:15)
PROC: (CPT 52317; 2021-03-01 12:15)
DX: N21.0 Calculus in bladder (principal); N40.0 Benign prostatic hyperplasia without lower urinary tract symptoms; K21.9 Gastro-esophageal reflux disease without esophagitis; Z86.73 Personal history of transient ischemic attack (TIA), and cerebral infarction without residual deficits; Z95.4 Presence of other heart-valve replacement; Z87.891 Personal history of nicotine dependence; E66.9 Obesity, unspecified; Z68.33 Body mass index [BMI] 33.0-33.9, adult
CPT/HCPCS: 52317; 81001; 82365; 88300; J0690; J1100; J2405; J2704; J3010; J7120

== ENCOUNTER 2021-06-24 14:44 | Emergency (ER) | payer MEDICARE, SELFPAY ==
--- NOTE | ~2021-06-24 | XR_ITS ---
EXAMINATION: XR chest 1V portable INDICATION: Cough TECHNIQUE: Portable AP chest at 1540 hours COMPARISON: 03/08/2018 FINDINGS: The lungs are free of acute opacities. There is no pleural effusion or pneumothorax. The he art size is normal. There are changes of interval cardiac valve surgery. IMPRESSION: 1. No acute cardiopulmonary abnormality. Reviewed, dictated and finalized at location B.
[2021-06-24 14:49] VITALS: BP 144/70; PULSE 84; RESP 18; TEMP 37.4; O2SAT 97
--- NOTE | 2021-06-24 15:30 | ED.SOB ---
HPI - SOB/Dyspnea General Chief Complaint: Shortness of Breath/Dyspnea Stated Complaint: recent pnuemonia, dizzy, cough Time Seen by Provider: 06/24/21 15:29 Source: patient Mode of arrival: ambulatory Limitations: no limitations History of Present Illness HPI Narrative: Patient 76 years old white male referred to the emergency room by his family physician because of cough, shortness of breath and watery eyes over the last 2 weeks. His family physician diagnosed him of pneumonia 2 weeks ago, started him on doxycycline, steroid, cough medicine with codeine and Mucinex. Patient is not getting better. History of cardiac valve replacement, GERD. Patient does not smoke, drinks occasionally, denies any fever, chills, chest pain, back pain. Tested negative for COVID twice 2 weeks ago. Related Data Home Medications Medication Instructions Recorded Confirmed fish,bora,flax oils-om3,6,9no1 1 cap PO DAILY 03/13/19 06/09/21 [[place] 3-6-9 Complex] Complete Multivitamin 1 tablet PO DAILY 08/28/19 06/09/21 Allergies Allergy/AdvReac Type Severity Reaction Status Date / Time No Known Allergies Allergy Verified 06/24/21 16:17 Review of Systems Review of Systems: CONSTITUTIONAL: Denies fever, chills, or sweats. EYES: Denies visual changes, redness, or discharge. ENT: Denies rhinorrhea, congestion, sore throat, or otalgia. CARDIOVASCULAR: Denies chest pain, palpitations, or edema. RESPIRATORY: Cough GASTROINTESTINAL: Denies abdominal pain, nausea, vomiting, or diarrhea. GENITOURINARY: Denies dysuria or hematuria. SKIN: Denies rash or itching. MUSCULOSKELETAL: Denies back pain, joint pain, or myalgia. NEUROLOGIC: Denies headache, numbness, or weakness. PSYCHIATRIC: Denies anxiety or depression. [facility] Past Medical History Medical History Pryor's esophagus with dysplasia Bilateral nephrolithiasis Chronic GERD Heart murmur Nonrheumatic aortic (valve) stenosis Obesity Severe aortic stenosis TIA (transient ischemic attack) Surgical History Surgical History History of melanoma S/P aortic valve replacement Family History Family History Mother , 94 Family history of Alzheimer's disease Father S/P CABG x 4 currently alive-97 y/o Other Family history of arthritis Social History Social History Smoking packs per day: 1 Smoking cigarettes per day: 20.0 Years smoked: 5 Smoking pack-years: 5.00 Tobacco type: cigarettes Second hand tobacco smoke exposure: No Smoking end date: 02/26/71 Alcohol intake: current Drinks per week: 6 Alcohol use details: socially Substance use: never Substance use type: does not use Gender identity (if verbalized by the patient): Male Spiritual care concerns: No Exam Narrative: General appearance: Well-developed, well-nourished Skin: Normal color Head: Normocephalic, nontraumatic Eyes: Clear conjunctiva ENT: Oropharynx normal, ears normal, nose normal Neck: Supple, nontender Chest and respiratory: Airway patent, no respiratory distress, no accessory muscle use few scattered rhonchi and coarse wheezing Heart: Regular rate/rhythm Abdomen: Soft, nontender, no organomegaly, quiet bowel sounds Vascular: Normal peripheral pulses, normal capillary refill. Musculoskeletal: Normal range of motion, nontender back Neurologic: Alert and oriented ?3, SERVICE OR WORK DISPATCHER is normal as tested, no gross motor deficit Course Vital Signs Vital signs: Vital Signs Temperature 37.4 C 04/
--- NOTE | 2021-06-24 15:32 | ECG_ITS ---
Measurements Intervals [place] Rate: 78 P: 53 WI: 151 QRS: 42 QRSD: 103 T: 45 QT: 363 QTc: 415 Interpretive Statements SINUS RHYTHM PROBABLE INFERIOR MYOCARDIAL INFARCTION NO PREVIOUS ECG AVAILABLE FOR COMPARISON Electronically Signed On 06-25-2021 13:37:07 CDT by Leigh Ann Wagoner M.D.
[2021-06-24 16:01] LABS: Basophils Absolute Auto 0.1 K/mm3 (0.0-0.1); Basophils Percent Auto 0.9 % (0.2-1.2); Eosinophils Percent Auto 0.7 % (0-4.4); Hematocrit 40.4 % (42.0-52.0); Immature Granulocyte Absolute 0.01 K/mm3 (0.00-0.031); Immature Granulocyte Percent A 0.2 % (0-0.5); Lymphocytes Percent Auto 19.1 % (18.3-44.2); Mean Corpuscular HGB Conc 34.7 g/dl (32-36); Mean Corpuscular Volume 92.4 fl (80-100); Monocytes Absolute Auto 0.6 K/mm3 (0.1-0.6); Monocytes Percent Auto 10.2 % (2.6-8.5); Neutrophils Percent Auto 68.9 % (45.5-73.1); Platelet Count Result 179 k/mm3 (150-375); Red Blood Count 4.37 M/mm3 (4.6-6.20); Red Cell Distribution Width 13.2 % (11.5-14.5); White Blood Count 5.8 K/mm3 (4.5-10.0)
[2021-06-24 16:12] LABS: Alanine Aminotransferase 33 U/L (4-50); Albumin Level 4.1 g/dL (3.5-5.1); Alkaline Phosphatase 71 U/L (38-126); Anion Gap 8 mmol/L (8-16); Aspartate Amino Transferase 34 U/L (17-59); Bilirubin,Total 1.4 mg/dL (0.2-1.3); Blood Urea Nitrogen 14 mg/dL (9-20); Calcium 8.1 mg/dL (8.4-10.2); Carbon Dioxide 24 mmol/L (22-30); Chloride 104 mmol/L (98-107); Estimated CRCL calculation 66 ml/min; Estimated Glomerular Filt Rate > 60; Glucose 108 mg/dL (65-110); Potassium 3.8 mmol/L (3.4-5.0); Sodium 136 mmol/L (137-145)
[2021-06-24 16:15] VITALS: O2SAT 94
[2021-06-24 16:21] LABS: NT Pro B Type Natriuretic Pept 213 pg/mL (5-100)
[2021-06-24 17:23] VITALS: BP 118/72; PULSE 74; RESP 22; O2SAT 94
== END 2021-06-24 17:25 | disposition home or self-care (01) ==
LOC: ANHED 16:34
PROVIDERS: Emergency Provider Emergency Medicine; PCP Family Medicine
DX: J98.01 Acute bronchospasm (principal); K22.719 Barrett's esophagus with dysplasia, unspecified; K21.9 Gastro-esophageal reflux disease without esophagitis; I35.0 Nonrheumatic aortic (valve) stenosis; E66.9 Obesity, unspecified; Z68.31 Body mass index [BMI] 31.0-31.9, adult; Z95.2 Presence of prosthetic heart valve; Z86.73 Personal history of transient ischemic attack (TIA), and cerebral infarction without residual deficits; Z87.01 Personal history of pneumonia (recurrent); Z87.442 Personal history of urinary calculi; Z85.820 Personal history of malignant melanoma of skin; Z87.891 Personal history of nicotine dependence; R94.31 Abnormal electrocardiogram [ECG] [EKG]
CPT/HCPCS: 36415; 71045; 80053; 83880; 85025; 87804; 93005; 99284

== ENCOUNTER 2021-07-12 12:03 | Outpatient (CLI) | payer MEDICARE, SELFPAY ==
[2021-07-12 12:53] LABS: Basophils Absolute Auto 0.1 K/mm3 (0.0-0.1); Basophils Percent Auto 0.9 % (0.2-1.2); Eosinophils Absolute Auto 0.1 K/mm3 (0-0.3); Hematocrit 42.8 % (42.0-52.0); Hemoglobin 14.1 g/dL (14.0-18.0); Immature Granulocyte Absolute 0.01 K/mm3 (0.00-0.031); Immature Granulocyte Percent A 0.2 % (0-0.5); Lymphocytes Absolute Auto 1.82 K/mm3 (0.9-3.2); Lymphocytes Percent Auto 33.8 % (18.3-44.2); Mean Corpuscular HGB Conc 32.9 g/dl (32-36); Mean Corpuscular Hemoglobin 30.7 pg (26-34); Mean Corpuscular Volume 93.2 fl (80-100); Mean Platelet Volume 10.1 fl (7.4-10.4); Monocytes Absolute Auto 0.4 K/mm3 (0.1-0.6); Monocytes Percent Auto 8.2 % (2.6-8.5); Neutrophils Percent Auto 54.9 % (45.5-73.1); Platelet Count Result 256 k/mm3 (150-375); Red Blood Count 4.59 M/mm3 (4.6-6.20); Red Cell Distribution Width 13.3 % (11.5-14.5); White Blood Count 5.4 K/mm3 (4.5-10.0)
[2021-07-12 13:08] LABS: Alanine Aminotransferase 25 U/L (6-50); Albumin Level 4.1 g/dL (3.5-5.1); Alkaline Phosphatase 71 U/L (38-126); Anion Gap 7 mmol/L (8-16); Aspartate Amino Transferase 27 U/L (17-59); Bilirubin,Total 1.7 mg/dL (0.2-1.3); Blood Urea Nitrogen 16 mg/dL (9-20); Calcium 8.9 mg/dL (8.4-10.2); Carbon Dioxide 25 mmol/L (22-30); Chloride 108 mmol/L (98-107); Estimated Glomerular Filt Rate > 60; Glucose 110 mg/dL (65-110); Potassium 3.9 mmol/L (3.4-5.0); Sodium 140 mmol/L (137-145)
== END 2021-07-12 12:04 | disposition home or self-care (01) ==
LOC: ANHLAB 12:06
PROVIDERS: PCP Family Medicine; Visit Provider Physician Assistant
DX: R05.9 Cough, unspecified (principal); R53.83 Other fatigue; G45.9 Transient cerebral ischemic attack, unspecified
CPT/HCPCS: 36415; 80053; 84443; 85025

== ENCOUNTER 2022-03-29 11:38 | Outpatient (CLI) | payer MEDICARE, SELFPAY ==
--- NOTE | ~2022-03-29 | XR_ITS ---
EXAMINATION: XR abdomen/kub 1V DATE: 03/29/2022 13:02 INDICATION: Bilateral kidney stones. TECHNIQUE: A supine view of the abdomen on 2 radiographs was obtained. COMPARISON: Abdomen radiographs 01/06/2021, CT abdomen and pelvis 01/06/2021 FINDINGS: There are no dilated loops of bowel. There are 3 stones in left kidney measuring up to 4 mm . There are phleboliths in the pelvis. There are changes of posterior fusion procedure at L5-S1. IMPRESSION: 1. Left kidney stones. Reviewed, dictated and finalized at location A. DENT ASSOCIATE IMPRESSION: 1. Left kidney stones.
== END 2022-03-29 11:39 | disposition home or self-care (01) ==
PROVIDERS: PCP Family Medicine; Visit Provider Urology
DX: N20.0 Calculus of kidney (principal)
CPT/HCPCS: 74018

== ENCOUNTER 2022-04-12 14:22 | Outpatient (CLI) | payer MEDICARE, SELFPAY ==
--- NOTE | ~2022-04-12 | XR_ITS ---
EXAMINATION: XR ribs BI 3V w CXR 2V INDICATION: Pleurodynia TECHNIQUE: Frontal and lateral views of the chest and 3 views of the bilateral ribs were obtained. COMPARISON: 06/24/2021 FINDINGS: There is mild atelectasis of the left lung base. No pleural effusion or pneumothorax. The h eart size is normal. There are changes of cardiac valve surgery. There are bridging osteophytes at mu ltiple levels in the spine, consistent with diffuse idiopathic skeletal hyperostosis (DISH). No displ aced rib fracture is identified. There are changes of lumbar fusion. IMPRESSION: 1. No displaced rib fracture identified. 2. Mild atelectasis of the left lung base. Reviewed, dictated and finalized at location B. ENCE CUSTODIAN
== END 2022-04-12 14:23 | disposition home or self-care (01) ==
PROVIDERS: PCP Family Medicine; Visit Provider Physician Assistant
DX: R07.81 Pleurodynia (principal); R07.89 Other chest pain; R91.8 Other nonspecific abnormal finding of lung field
CPT/HCPCS: 71046; 71110

== ENCOUNTER 2022-04-19 02:36 | Emergency (ER) | payer MEDICARE, SELFPAY ==
[2022-04-19] VITALS (32 sets, daily range): BP systolic 111–158; BP diastolic 68–92; PULSE 56–64; RESP 12–22; TEMP 36.5; O2SAT 90–97
--- NOTE | ~2022-04-19 | CT_ITS ---
Clinical Indication: Chest pain, abdominal pain CT Scan of the Chest, Abdomen, and Pelvis with Contrast: Technique: Contiguous sections were acquired throughout the chest, abdomen, and pelvis after intraven ous administration of 100 cc of Omnipaque 350. Dose reduction technique was used on this scan by uti lizing automated exposure control and iterative reconstruction technique. The dose-length product (DL P) was 1775.26 mGy-cm. Findings: There is no evidence of any significant mediastinal, hilar or axillary lymphadenopathy. Ascending aor ta is dilated to 4.8 cm in diameter. Coronary artery calcifications are present. No pulmonary embolus . Aberrant right subclavian artery noted. There is no evidence of pleural or pericardial effusion. The lungs are clear, aside from mild dependent atelectatic change. Diffuse fatty infiltration of the liver noted. The spleen, pancreas, gallbladder, adrenals and right kidney are within normal limits. Small nonobstructing left renal stones are present. No evidence of a ortic aneurysm. No lymphadenopathy. No bowel obstruction or bowel wall thickening. There is no evidence to suggest acute appendicitis. 5 mm urinary bladder stone noted. Prostate gland minimally enlarged. No ascites. Impression: No pulmonary embolus. Ascending aortic aneurysm measures 4.8 cm in diameter. Nonobstructing left nephrolithiasis. 5 mm urinary bladder stone. Diffuse fatty infiltration of the liver. Reviewed, dictated and finalized at [facility]. NIGHT Impression: No pulmonary embolus. Ascending aortic aneurysm measures 4.8 cm in diameter. Nonobstructing left nephrolithiasis. 5 mm urinary bladder stone. Diffuse fatty infiltration of the liver.
--- NOTE | ~2022-04-19 | XR_ITS ---
Clinical Indication: Pain PA and lateral views of the chest: Comparison: 04/12/2022 Findings: The lungs are clear, without evidence of focal consolidation or pleural effusion. Cardiome diastinal silhouette is stable, status post aortic valve replacement. 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 Impression: Clear lungs. Status post aortic valve replacement. Reviewed, dictated and finalized at location . PED STRAND OPERATOR Impression: Clear lungs. Status post aortic valve replacement.
--- NOTE | 2022-04-19 02:38 | ECG_ITS ---
Measurements Intervals [place] Rate: 64 P: 52 NC: 166 QRS: 30 QRSD: 109 T: 70 QT: 428 QTc: 444 Interpretive Statements SINUS RHYTHM WITH OCCASIONAL SUPRAVENTRICULAR PREMATURE COMPLEXES POSSIBLE iNFERIOR MYOCARDIAL INFARCTION , PROBABLY OLD [40+ ms Q WAVE AND/OR ST/T ABNORMALITY IN II/aVF] NONSPECIFIC T-WAVE ABNORMALITY ABNORMAL ECG COMPARED TO ECG 06/24/2021 15:47:37 NO SIGNIFICANT CHANGES Electronically Signed On 04-19-2022 13:40:54 PHARMACIST HELPER by Zaid Guajardo M.D.
[2022-04-19 03:01] LABS: Basophils Absolute Auto 0.1 K/mm3 (0.0-0.1); Basophils Percent Auto 0.8 % (0.2-1.2); Eosinophils Absolute Auto 0.2 K/mm3 (0-0.3); Eosinophils Percent Auto 1.7 % (0-4.4); Hematocrit 44.9 % (42.0-52.0); Hemoglobin 15.5 g/dL (14.0-18.0); Immature Granulocyte Absolute 0.09 K/mm3 (0.00-0.031); Immature Granulocyte Percent A 0.9 % (0-0.5); Lymphocytes Absolute Auto 4.32 K/mm3 (0.9-3.2); Lymphocytes Percent Auto 41.9 % (18.3-44.2); Mean Corpuscular HGB Conc 34.5 g/dl (32-36); Mean Corpuscular Hemoglobin 31.4 pg (26-34); Mean Corpuscular Volume 90.9 fl (80-100); Mean Platelet Volume 9.3 fl (7.4-10.4); Monocytes Absolute Auto 0.7 K/mm3 (0.1-0.6); Monocytes Percent Auto 6.5 % (2.6-8.5); Neutrophils Percent Auto 48.2 % (45.5-73.1); Platelet Count Result 274 k/mm3 (150-375); Red Blood Count 4.94 M/mm3 (4.6-6.20); Red Cell Distribution Width 13.2 % (11.5-14.5); White Blood Count 10.3 K/mm3 (4.5-10.0)
--- NOTE | 2022-04-19 03:04 | ED.GENADULT ---
HPI - General Adult General Chief complaint: Chest Pain Stated complaint: CP Time Seen by Provider: 04/19/22 02:41 History of Present Illness HPI narrative: Patient is a 76-year-old gentleman who presents the emergency department with chief complaint of chest pain. Patient reports this evening around midnight he woke up started having some uncomfortable feeling in his chest. The patient reports that he has been belching profusely since this started the patient reports that there is no radiation denies diaphoresis reports that he had a cardiac cath in 2019 prior to having a aortic valve replacement. Patient reports he has no cardiac stents Related Data Home Medications Medication Instructions Recorded Confirmed fish, borage, flaxseed oils-omega 1 cap PO DAILY 03/13/19 04/12/22 3,6,9 cb #1 400 mg-400 mg-400 mg cap ([place] 3-6-9 Complex) multivitamin,mn-rzes-ulxlaszu 1 tablet PO DAILY 08/28/19 04/12/22 (Complete Multivitamin tablet) amitriptyline 10 mg tablet 10 mg PO QHS 11/01/21 04/12/22 Allergies Allergy/AdvReac Type Severity Reaction Status Date / Time No Known Allergies Allergy Verified 04/19/22 02:44 Review of Systems Review of Systems: A 10 system review of systems was completed on the patient and is negative except for what is stated in the HPI. Nursing and ancillary documentation was reviewed. [facility] Past Medical History Medical History Pryor's esophagus with dysplasia Bilateral nephrolithiasis Chronic GERD Heart murmur Nonrheumatic aortic (valve) stenosis Obesity Severe aortic stenosis TIA (transient ischemic attack) Vestibular migraine Surgical History Surgical History History of melanoma S/P aortic valve replacement Family History Family History Mother , 94 Family history of Alzheimer's disease Father S/P CABG x 4 currently alive-97 y/o Other Family history of arthritis Social History Social History Social History: Smoking packs per day: 1 Smoking cigarettes per day: 20.0 Years smoked: 5 Smoking pack-years: 5.00 Smoking status: Former smoker (CHEWING TOBACCO) Tobacco type: cigarettes Smokeless tobacco user: chewing tobacco Second hand tobacco smoke exposure: No Smoking end date: 02/26/71 Alcohol intake: current Drinks per week: 1 Substance use: never Substance use type: does not use Living arrangements: with family Occupation/Education: retired Gender identity (if verbalized by the patient): Male Sexual Orientation (if Verbalized by the Patient): Straight or Heterosexual Spiritual care concerns: No Exam Narrative: GENERAL: Well-appearing, well-nourished, and in no acute distress. HEAD: Normocephalic, atraumatic. EYES: PERRLA and EOMI. ENT: Nares clear, no rhinorrhea or epistaxis. Mucous membranes moist. NECK: Supple. CHEST: Clear to auscultation. No respiratory distress. HEART: Regular rate and rhythm. No murmur heard. Normal peripheral pulses. ABDOMEN: Soft, nontender, nondistended, normal active bowel sounds. EXTREMITIES: Normal range of motion. No edema. SKIN: Warm, dry, no rash. NEURO: No focal deficits. Alert and oriented x3. PSYCH: Normal mood and affect. Course Vital Signs Vital signs: Vital Signs Temperature 36.5 C 04/19/22 02:39 Pulse Rate 63 04/19/22 02:39 Respiratory Rate 19 04/19/22 02:39 Blood Pressure 158/92 H 04/19/22 02:39 Pulse Oximetry 97 04/19/22 02:39 Oxygen Delivery Room Air 04/19/22 02:39 Temperature 36.5 C 04/19/22 02:39 Pulse Rate 59 L 04/19/22 04:01 Respiratory Rate 22 H 04/19/22 04:01 Blood Pressure 129/82 04/19/22 04:01 Pulse Oximetry 95 04/19/22 04:01 Oxygen Delivery Room Air
[2022-04-19 03:10] LABS: Alanine Aminotransferase 29 U/L (6-50); Albumin Level 4.5 g/dL (3.5-5.1); Alkaline Phosphatase 86 U/L (38-126); Anion Gap 9 mmol/L (8-16); Aspartate Amino Transferase 27 U/L (17-59); Bilirubin,Total 1.1 mg/dL (0.2-1.3); Blood Urea Nitrogen 17 mg/dL (9-20); Calcium 8.6 mg/dL (8.4-10.2); Carbon Dioxide 26 mmol/L (22-30); Chloride 102 mmol/L (98-107); Estimated CRCL calculation 74 ml/min; Estimated Glomerular Filt Rate > 60; Glucose 109 mg/dL (65-110); Lipase 182 U/L (23-300); Potassium 3.9 mmol/L (3.4-5.0); Sodium 137 mmol/L (137-145)
[2022-04-19 03:12] LABS: INR 0.9; Prothrombin Time 12.2 Seconds (11.1-14.7)
[2022-04-19 03:13] LABS: Partial Thromboplastin Time 25.6 SECONDS (22.3-36.8)
[2022-04-19] MEDS: NITROGLYCERIN SL 0.4 MG TABLET SUBLINGUAL (03:17)
--- NOTE | 2022-04-19 03:17 | PC.NURSE ---
0318 pt. rates cp at 8 bp 153/88 HR 61 pt. given 0.4 mg nitro sl. 0323 pt. rates cp at 8 bp 137/87 HR 64 pt. given 0.4 mg nitro sl 0326pt. reports feeling flush and sweaty. no change in cp. pt. bp 128/81, RN held third dose of nitro.
[2022-04-19 03:21] LABS: Troponin I < 0.012 ng/mL (0.000-0.034)
[2022-04-19] MEDS: MORPHINE SULFATE (*CRX) 4 MG/ML INJ IV PUSH (03:40)
[2022-04-19] MEDS: BELLADONNA ALK/PHENOB ELIX 10 ML, MAG HYDROX/ALUMINUM HYD/SIMETH 30 ML, LIDOCAINE HCL 2... PO (03:41)
[2022-04-19] MEDS: ONDANSETRON INJ 4 MG/2 ML VIAL IV PUSH (03:41)
[2022-04-19] MEDS: SODIUM CHLORIDE 0.9% IV 1,000 ML 999 ML (03:41)
[2022-04-19 06:07] LABS: Troponin I < 0.012 ng/mL (0.000-0.034)
== END 2022-04-19 06:45 | disposition home or self-care (01) ==
PROVIDERS: Emergency Provider Emergency Medicine; PCP Family Medicine
DX: R07.89 Other chest pain (principal); Z87.891 Personal history of nicotine dependence; K21.9 Gastro-esophageal reflux disease without esophagitis; I35.0 Nonrheumatic aortic (valve) stenosis
CPT/HCPCS: 36415; 71046; 71275; 74177; 80053; 83690; 84484; 85025; 85610; 85730; 93005; 96361; 96374; 96375; 99284; A9270; J2270; J2405; J7030; Q9967

== ENCOUNTER 2022-04-29 01:55 | Inpatient (IN) | payer MEDICARE, SELFPAY ==
[2022-04-29] VITALS (36 sets, daily range): BP systolic 137–177; BP diastolic 78–99; PULSE 69–83; RESP 12–24; TEMP 36.4–36.6; O2SAT 90–100; BMI 33.9
--- NOTE | ~2022-04-29 | MR_ITS ---
EXAMINATION: MR MRCP wo/w con/w 3D wo ind DATE: 04/29/2022 12:13 INDICATION: Abnormal liver function tests. Gallstones. TECHNIQUE: Magnetic resonance imaging (MRI) of the abdomen was performed without and with 20 mL Multi Parris intravenous contrast. Sequences included coronal T2-weighted FS FSE, coronal T2-weighted FSE, a xial T1-weighted LAVA, coronal FS FIESTA, axial dual-echo T1-weighted SPGR, coronal lava-FLEX, sagitt al T2-weighted FSE, axial T2-weighted FSE, and axial DWI. Thick-slab T2-weighted FSE images were obta ined for magnetic resonance cholangiopancreatography (MRCP). Maximum intensity projection 3-D reconst ructions of the volumetric data were created by the technologist. Postcontrast sequences included cor onal LAVA-flex and time course of axial T1-weighted LAVA. COMPARISON: Abdomen ultrasound 04/29/2022, CT abdomen and pelvis 04/29/2022 FINDINGS: ABDOMEN MRI: There is mild atelectasis in the lower lobes. There is diffuse hepatic steatosis. The ga llbladder is distended and contains sludge. Gallbladder wall thickening is noted. There is fat strand ing around the gallbladder. 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 The spleen, adrenal glands, and kid neys are normal. There are no dilated loops of bowel. There are changes of anterior and posterior fus ion procedures at L4-L5. ABDOMEN MRCP: The common duct is normal and measures 5 mm . IMPRESSION: 1. Normal common duct. No choledocholithiasis. 2. Acute cholecystitis. Reviewed, dictated and finalized at location A. FACTURING ENGINEER SUPERVISOR
--- NOTE | ~2022-04-29 | CT_ITS ---
EXAMINATION: CT abdomen pelvis w con DATE: 04/29/2022 03:36 INDICATION: Abdominal pain. Nausea. TECHNIQUE: Computed tomography (CT) of the abdomen and pelvis was performed with 100 mL Omnipaque 350 intravenous contrast. Automated exposure control and iterative reconstruction technique were employe d. The dose-length product was 1288.65 mGy-cm. COMPARISON: CT abdomen and pelvis 04/19/2022 FINDINGS: The visualized portions of the lung bases demonstrate mild atelectasis. No pleural effusion . The heart size is normal. There are changes of aortic valve replacement. There are coronary artery calcifications. No pericardial effusion. There is diffuse hepatic steatosis. Calcifications in the sp lalo are consistent with old granulomatous disease. The gallbladder is distended with gallbladder wal l thickening and surrounding fat stranding. There is a stone in the cystic duct. These findings are c onsistent with acute cholecystitis. The pancreas and adrenal glands are normal. There is a 1 mm stone in right kidney. There are 3 stones in left kidney measuring up to 3 mm. There are approximately 3 s tones in the bladder measuring up to 4 mm. The prostate is mildly enlarged. There is diverticulosis o f the colon without evidence of diverticulitis. There are no dilated loops of bowel. The appendix is normal. There are no pathologically enlarged lymph nodes. There is no free intraperitoneal fluid. The re are bilateral inguinal hernias containing fat. There are changes of anterior and posterior fusion procedure at L4-L5. There is moderate lumbar spondylosis. There are bridging endplate osteophytes at multiple levels in the spine, consistent with diffuse idiopathic skeletal hyperostosis (DISH). IMPRESSION: 1. Acute cholecystitis. Reviewed, dictated and finalized at location A. LY CHAIN PROCUREMENT MANAGER IMPRESSION: 1. Acute cholecystitis.
--- NOTE | ~2022-04-29 | US_ITS ---
EXAMINATION: US abdomen limited DATE: 04/29/2022 07:37 INDICATION: Right upper quadrant abdominal pain. TECHNIQUE: Multiple grayscale and Doppler ultrasound images of the abdomen were obtained. COMPARISON: CT abdomen and pelvis 04/29/2022 FINDINGS: The visualized portions of the head, body, and tail of the pancreas are normal. There is di ffuse hepatic steatosis. There is normal flow in main portal vein. The gallbladder is distended and c ontains sludge. Gallbladder wall thickening is noted. There is no sonographic Moreno sign. The recent CT showed a stone in the cystic duct. The common duct is normal and measures 4 mm. IMPRESSION: 1. Acute cholecystitis. 2. Diffuse hepatic steatosis. Reviewed, dictated and finalized at location A. CLERK
--- NOTE | 2022-04-29 02:40 | ECG_ITS ---
Measurements Intervals [place] Rate: 70 P: 45 ID: [id number] QRS: 17 QRSD: 113 T: 51 QT: 398 QTc: 430 Interpretive Statements SINUS RHYTHM DELAYED PRECORDIAL R/S TRANSITION CONSIDER INFERIOR INFARCT, AGE INDETERMINATE BORDERLINE ST-T WAVE ABNORMALITY- ANTEROLAT/HIGH LAT LEADS BASELINE ARTIFACT- AVR, AVL, AVF, V1, V6 ABNORMAL ECG COMPARED TO ECG 04/19/2022 02:43:16 NO SIGNIFICANT CHANGES Electronically Signed On 04-29-2022 6:54:26 RADIAL DRILL PRESS OPERATOR FOR PLASTIC by Sergio Estrada D.O.
[2022-04-29] MEDS: MORPHINE SULFATE (*CRX) 4 MG/ML INJ IV PUSH (02:56)
[2022-04-29] MEDS: FAMOTIDINE 20 MG/2 ML VIAL IV PUSH (02:56)
[2022-04-29] MEDS: METOCLOPRAMIDE HCL INJ 10 MG/2 ML VIAL IV PUSH (02:56)
[2022-04-29] MEDS: SODIUM CHLORIDE 0.9% IV 1,000 ML 999 ML IV CONT (02:56)
[2022-04-29] MEDS: PANTOPRAZOLE SODIUM IV 40 MG VIAL IV PUSH ×2 (02:56→09:48)
[2022-04-29 02:59] LABS: Hematocrit 43.2 % (42.0-52.0); Hemoglobin 14.9 g/dL (14.0-18.0); Immature Granulocyte Percent A 0.3 % (0-0.5); Mean Corpuscular HGB Conc 34.5 g/dl (32-36); Mean Corpuscular Hemoglobin 31.8 pg (26-34); Mean Corpuscular Volume 92.3 fl (80-100); Mean Platelet Volume 9.6 fl (7.4-10.4); Platelet Count Result 250 k/mm3 (150-375); Red Blood Count 4.68 M/mm3 (4.6-6.20); Red Cell Distribution Width 13.2 % (11.5-14.5); White Blood Count 10.1 K/mm3 (4.5-10.0)
[2022-04-29 03:00] LABS: Basophils Absolute Auto 0.1 K/mm3 (0.0-0.1); Basophils Percent Auto 0.5 % (0.2-1.2); Eosinophils Absolute Auto 0.1 K/mm3 (0-0.3); Eosinophils Percent Auto 1.3 % (0-4.4); Immature Granulocyte Absolute 0.03 K/mm3 (0.00-0.031); Lymphocytes Percent Auto 22.8 % (18.3-44.2); Monocytes Absolute Auto 0.8 K/mm3 (0.1-0.6); Monocytes Percent Auto 7.5 % (2.6-8.5); Neutrophils Absolute Auto 6.8 K/mm3 (1.3-6.7); Neutrophils Percent Auto 67.6 % (45.5-73.1)
[2022-04-29 03:03] LABS: Appearance Urine Clear (Clear); Bacteria Urine None Seen /hpf; Bilirubin Urine 1+ (Negative); Blood Urine Negative (Negative); Color Urine Dark Yellow (Yellow); Glucose Urine UA Negative (Negative); Ketones Urine 2+ mg/dL (Negative); Leukocyte Esterase Ur Trace LEU/UL (Negative); Nitrate Urine Negative (Negative); Non Pathogenic Casts 0-2; Protein Urine Negative (Negative); RBC Urine 0-2 /hpf (0-2); Specific Grav Ur 1.023 (1.001-1.035); Squamous Epithelial Cell Urine None seen /hpf (Few)
[2022-04-29 03:13] LABS: Lactic Acid Reflex 1.1 mmol/L (0.7-2.0)
[2022-04-29 03:13] LABS: Alanine Aminotransferase 28 U/L (6-50); Albumin Level 4.4 g/dL (3.5-5.1); Alkaline Phosphatase 94 U/L (38-126); Anion Gap 10 mmol/L (8-16); Aspartate Amino Transferase 25 U/L (17-59); Bilirubin,Total 2.3 mg/dL (0.2-1.3); Blood Urea Nitrogen 13 mg/dL (9-20); Calcium 9.1 mg/dL (8.4-10.2); Carbon Dioxide 26 mmol/L (22-30); Chloride 100 mmol/L (98-107); Estimated CRCL calculation 67 ml/min; Estimated Glomerular Filt Rate > 60; Glucose 123 mg/dL (65-110); Lipase 81 U/L (23-300); Magnesium 2.2 mg/dL (1.6-2.3); Potassium 3.6 mmol/L (3.4-5.0); Sodium 136 mmol/L (137-145)
[2022-04-29 03:23] LABS: Troponin I < 0.012 ng/mL (0.000-0.034)
--- NOTE | 2022-04-29 03:38 | ED.GENADULT ---
HPI - General Adult General Chief complaint: Abdominal Pain Stated complaint: abdominal pain Time Seen by Provider: 04/29/22 02:32 History of Present Illness HPI narrative: Patient 76-year-old gentleman who presents the emergency department with chief complaint of epigastric pain. Patient reports that seen in the emergency department several weeks ago and was having epigastric discomfort and belching. Patient reports that he has continued to have issues with belching and reports he is worsening whenever he lays flat and whenever he attempts to eat patient reports that he had imaging at that time that showed no acute findings patient states that the symptoms are not improved by anything. Related Data Home Medications Medication Instructions Recorded Confirmed fish, borage, flaxseed oils-omega 1 cap PO DAILY 03/13/19 04/27/22 3,6,9 cb #1 400 mg-400 mg-400 mg cap ([place] 3-6-9 Complex) multivitamin,xf-apgi-vgflrmht 1 tablet PO DAILY 08/28/19 04/27/22 (Complete Multivitamin tablet) amitriptyline 10 mg tablet 10 mg PO QHS 11/01/21 04/27/22 Allergies Allergy/AdvReac Type Severity Reaction Status Date / Time No Known Allergies Allergy Verified 04/27/22 10:23 Review of Systems Review of Systems: A 10 system review of systems was completed on the patient and is negative except for what is stated in the HPI. Nursing and ancillary documentation was reviewed. [facility] Past Medical History Medical History Pryor's esophagus with dysplasia Bilateral nephrolithiasis Chronic GERD Heart murmur Nonrheumatic aortic (valve) stenosis Obesity Severe aortic stenosis TIA (transient ischemic attack) Vestibular migraine Surgical History Surgical History History of melanoma S/P aortic valve replacement Family History Family History Mother , 94 Family history of Alzheimer's disease Father S/P CABG x 4 currently alive-97 y/o Other Family history of arthritis Social History Social History Social History: Smoking packs per day: 1 Smoking cigarettes per day: 20.0 Years smoked: 5 Smoking pack-years: 5.00 Smoking status: Former smoker (CHEWING TOBACCO) Tobacco type: cigarettes Smokeless tobacco user: chewing tobacco Second hand tobacco smoke exposure: No Smoking end date: 02/26/71 Alcohol intake: current Drinks per week: 1 Substance use: never Substance use type: does not use Living arrangements: with family Occupation/Education: retired Gender identity (if verbalized by the patient): Male Sexual Orientation (if Verbalized by the Patient): Straight or Heterosexual Spiritual care concerns: No Exam Narrative: GENERAL: Well-appearing, well-nourished, and in no acute distress. HEAD: Normocephalic, atraumatic. EYES: PERRLA and EOMI. ENT: Nares clear, no rhinorrhea or epistaxis. Mucous membranes moist. NECK: Supple. CHEST: Clear to auscultation. No respiratory distress. HEART: Regular rate and rhythm. No murmur heard. Normal peripheral pulses. ABDOMEN: Soft, tenderness to palpation in the epigastric region, nondistended, normal active bowel sounds. EXTREMITIES: Normal range of motion. No edema. SKIN: Warm, dry, no rash. NEURO: No focal deficits. Alert and oriented x3. PSYCH: Normal mood and affect. Course Vital Signs Vital signs: Vital Signs Temperature 36.4 C 04/29/22 01:58 Pulse Rate 76 04/29/22 01:58 Respiratory Rate 16 04/29/22 01:58 Blood Pressure 168/83 H 04/29/22 01:58 Pulse Oximetry 95 04/29/22 01:58 Oxygen Delivery Room Air 04/29/22 01:58 Temperature 36.4 C 04/29/22 01:58 Pulse Rate 78 04/29/22 06:30 Respiratory Rate 18 04/29/22 06:30 Blood Pressure 158/7
[2022-04-29 03:41] LABS: Add Urine Microscopic? YES
[2022-04-29] MEDS: HYDROmorphone HCL INJ (*CRX) 1 MG/ML SYR IV PUSH ×3 (03:52→22:36)
[2022-04-29 06:23] LABS: Troponin I < 0.012 ng/mL (0.000-0.034)
--- NOTE | 2022-04-29 07:11 | PC.NURSE ---
Assumed care of patient, resting on stretcher in NAD, A&Ox4. Reports he does not need any pain intervention at this time. US just came to pt room to get him for imaging.
--- NOTE | 2022-04-29 09:27 | ADMGEN ---
This patient, Janes Smith, was admitted to [facility] Surg Room 306-01. Patient/family oriented to hospital policies and general routines including ID bracelet, bed and alarms, visiting hours, pain management, procedures, bathroom and other care routines, personal items, smoking policy, room service/diet, and visiting hours. Information on how to activate the Rapid Response Team has been discussed. Patient/Family are encouraged to report perceived risks to care and to ask questions if they do not understand what they are told or what they should do.
[2022-04-29] MEDS: SODIUM CHLORIDE 0.9% IV 1,000 ML 125 ML IV CONT (09:48)
--- NOTE | 2022-04-29 10:36 | WPDGICN ---
Assessment and Plan Assessment and plan (1) Abdominal pain: Code(s): R10.9 - Unspecified abdominal pain Status: Acute Assessment and Plan: it appears that his abdominal pain is due to cholecystitis. Lipase is normal. It is possible that he had an episode of pancreatitis when this all began and he may then have passed a stone. (2) Acute cholecystitis: Code(s): K81.0 - Acute cholecystitis Status: Acute Assessment and Plan: Surgery has been consulted. I told that he will likely have his gallbladder removed within the next day or so depending on their impressions. (3) Elevated bilirubin: Code(s): R17 - Unspecified jaundice Status: Acute Assessment and Plan: Although bilirubin is elevated 2.3, and had been normal over the past few years, I do see that at 1 point it was 1.4 about 2 years ago. This raises the possibility of Gilbert's syndrome. Also, he could potentially have common bile duct stone or this could be Mirizzi's syndrome. (4) Nonrheumatic aortic (valve) stenosis: Code(s): I35.0 - Nonrheumatic aortic (valve) stenosis Status: Acute Assessment and Plan: He has had an aortic valve replacement for severe aortic stenosis (5) Pryor's esophagus with dysplasia: Code(s): K22.719 - Pryor's esophagus with dysplasia, unspecified Status: Acute Assessment and Plan: he had treatment at [facility] for Barretts esophagus with dysplasia having had radiofrequency ablation. He had follow-up at 6 months and a year and then his last EGD was about 4 years ago. At that time there was no evidence of Pryor's mucosa. He is in fact overdue for follow-up for that. Plan Obtain MRCP today to ensure that there is no common bile duct stone. Surgery has been consulted GI Consult Note Consult date/time: 04/29/22 10:36 HPI: Janes Smith is a 76 year old male who presented to the emergency room with pain that has been present for the past 2 weeks. He initially came to emergency room when he had pain in his back accompanied by belching and epigastric discomfort. At that time he was primarily investigated for cardiac disease. He states that he was slightly better for few days but his pain has returned. It is virtually constant rather than coming on in attacks. He has not been able to eat much because he simply does not feel like it. There was no vomiting. He has had no fever chills. There is no past history of liver disease pancreatitis or gallbladder disease. He does have gallstones seen on CT imaging and ultrasound shows acute cholecystitis. Although his bilirubin is elevated, 2.5, LFTs are otherwise normal and lipase is normal. Review of Systems Review of Systems: All systems reviewed & are unremarkable except as noted in HPI and below PMFSH Past Medical History Medical History Pryor's esophagus with dysplasia Bilateral nephrolithiasis Chronic GERD Heart murmur Nonrheumatic aortic (valve) stenosis Obesity Severe aortic stenosis TIA (transient ischemic attack) Vestibular migraine Surgical History Surgical History History of melanoma S/P aortic valve replacement Family History Family History Mother , 94 Family history of Alzheimer's disease Father S/P CABG x 4 currently alive-97 y/o Other Family history of arthritis Social History Social History Social History: Smoking packs per day: 1 Smoking cigarettes per day: 20.0 Years smoked: 5 Smoking pack-years: 5.00 Smoking status: Former smoker Tobacco type: cigarettes Smokeless tobacco user: chewing tobacco Second hand tobacco smoke exposure: No Smoking end date: 02/26/71 Alcohol intake: curre
--- NOTE | 2022-04-29 12:00 | PM.CNGS ---
Assessment and Plan Assessment and plan (1) Acute calculous cholecystitis: Code(s): K80.00 - Calculus of gallbladder with acute cholecystitis without obstruction Status: Acute Assessment and Plan: I have reviewed the CT and discussed the findings with the patient. He has evidence of acute calculous cholecystitis. This appears consistent with his symptoms he has had over the past couple weeks. Further workup is in place for his elevated bilirubin, but this is only mildly elevated and no findings on the imaging suggest choledocholithiasis. If MRCP is normal, then I would recommend proceeding with laparoscopic cholecystectomy, possible open if medically cleared. With this being the weekend, will possibly keep patient here and planned for surgery on Sunday. Will discuss with nursing landscaping supervisor in regards to timing. I have discussed the procedure as well as the risks, benefits, and alternatives with the patient. He is agreeable to proceeding. (2) Elevated bilirubin: Code(s): R17 - Unspecified jaundice Status: Acute (3) Ascending aortic aneurysm: Code(s): I71.21 - Aneurysm of the ascending aorta, without rupture Status: Acute (4) S/P aortic valve replacement: Code(s): Z95.2 - Presence of prosthetic heart valve Status: Acute History of Present Illness Consult details Consult date: 04/29/22 Reason for consult: gallstones Requesting physician: Francesco Kelly MD Narrative: This is a 76-year-old man who I am asked to see for possible acute cholecystitis. He presented to the emergency department this morning with worsening epigastric abdominal pain. He has had intermittent symptoms over the past month, but it has been more persistent over the past 2 weeks. He was complaining of some right flank pain that was wrapping around to front about 1 month ago thought this could be related to his prior history of kidney stones and bladder stones. He then also went to the emergency department about 2 weeks ago and was having epigastric abdominal pain. Cardiac workup and CT of the abdomen were performed but workup was essentially negative. He did notice that pain started after eating a grilled cheese sandwich, but he has not identified any other particular foods that are worsening his pain. He does have some bloating and nausea but denies any vomiting. He denies any change in bowel habits. He denies any fevers or chills. CT in the emergency department showed evidence of possible cholecystitis and cholelithiasis. He had a slightly elevated white blood count. Otherwise workup was fairly normal. His bilirubin is slightly elevated, therefore GI has been consulted as well. He has an MRCP ordered for this morning. Review of Systems Review of Systems: All systems reviewed & are unremarkable except as noted in HPI and below Constitutional: Constitutional: Denies chills and Denies fever(s) Eyes: Eyes: Denies change in vision ENT: Denies hearing loss, Denies neck pain and Denies sore throat Cardiovascular: Cardiovascular: Denies chest pain and Denies dyspnea Respiratory: Respiratory: Denies cough, Denies dyspnea and Denies wheezing Gastrointestinal: Gastrointestinal: Reports as per HPI Genitourinary: Genitourinary: Denies hematuria and Denies dysuria Musculoskeletal: Musculoskeletal: Denies arthralgias, Denies joint swelling and Denies neck pain Allergic/Immunologic: Allergic/Immunologic: Denies wheezing COUNT INCLUDES THE [facility] Past Medical History Medical History (Updated 04/29/22 @ 12:06 by Nomi Lamb DO) Pryor's esophagus with dysplasia Bilateral nephrolithiasis Chronic GERD Heart murmur Nonrheumatic aortic (valve) stenosis Obesity Severe aortic stenosis TIA (transient ischemic attack) Vestibular migraine Surgical History Surgical History (Updated 04/29/22 @ 12:06 by Nomi Lamb DO) History of melanoma S/P aortic valve replacement Family History Family His
--- NOTE | 2022-04-29 12:22 | PC.NURSE ---
patient returned to floor from [facility]
--- NOTE | 2022-04-29 13:00 | PM.IMHP ---
H&P: HPI History of Present Illness Date/Time: 04/29/22 13:00 Chief Complaint: Abdominal pain. Narrative: This is a 76-year-old male with history of GERD, Pryor esophagus, peptic ulcer disease, kidney stones, vestibular migraines, and severe aortic valve stenosis status post bioprosthetic valve replacement who presented to the emergency department from home for evaluation of abdominal pain. Patient provides the following history. He has experienced intermittent episodes of epigastric discomfort for the last 7 to 10 days associated with belching and bloating. He was seen in the emergency department on 04/19/2022 at which time he was not having abdominal discomfort. CBC, CMP, and troponins were unremarkable. EKG did not show any acute ST segment elevations or depressions and appeared unchanged from prior tracings. CT of the chest/abdomen/pelvis showed no evidence of pulmonary embolism, a 4.8 cm ascending aortic aneurysm, nonobstructing left nephrolithiasis, 5 mm urinary bladder stone, and diffuse fatty infiltration of the liver. He was discharged home and followed up with his primary care provider on 04/27/2022. He continues to have pain, mostly in the epigastric region, which seems to be worse at nighttime. His appetite has not been great and he has been trying to eat a bland diet though that does not seem to be helping with his discomfort. He continues to have issues with bloating and belching. He has had nausea but no vomiting. He denies fever, chills, and sweats. He has been avoiding NSAIDs and alcohol. He is compliant with omeprazole 20 mg daily. Right upper quadrant ultrasound was ordered and he was referred to GI for consultation given his history. Unfortunately he is not getting any better and he came back in today where imaging showed findings consistent with acute cholecystitis. He has since been started on Zosyn and he is being admitted in this setting. Review of Systems Review of Systems: Twelve systems were reviewed and are negative except for as per HPI. [facility] Past Medical History Medical History Ascending aortic aneurysm 4.8 cm in diameter on 04/19/2022. Pryor's esophagus with dysplasia Bilateral nephrolithiasis Bladder stone Chronic GERD Hepatic steatosis Melanoma Nonrheumatic aortic valve stenosis Status post bioprosthetic AVR. Obesity Peptic ulcer disease Transient ischemic attack Vestibular migraine Surgical History Surgical History History of aortic valve replacement with bioprosthetic valve History of cystoscopy History of melanoma excision Family History Family History Mother , 94 Family history of Alzheimer's disease Father S/P CABG x 4 currently alive-97 y/o Other Family history of arthritis Social History Social History (Updated 04/29/22 @ 20:22 by Latonya Jung PA-C) Social History: Surrogate medical decision maker: Tonya Garcia, spouse. Code status: Full code. Smoking packs per day: 1 Smoking cigarettes per day: 20.0 Years smoked: 5 Smoking pack-years: 5.00 Smoking status: Former smoker Tobacco type: cigarettes Smokeless tobacco user: chewing tobacco Second hand tobacco smoke exposure: No Smoking end date: 02/26/71 Alcohol intake: current Drinks per week: 1 Substance use: never Substance use type: does not use Lack of Transportation: No Lack of Food: Never True Current Housing: I Have Housing Concerned About Future Housing: No Difficulty Paying Gas/Electric Bills: No Difficulty Paying for Meds: No Currently Unemployed: No Education: Trade/Vocational Certificate Difficulty w/ Childcare or Family Care: No Living arrangements: with family Additional living arrangements comments: Lives with in [place]. Occupation/Education: retired
[2022-04-30 01:07] VITALS: BP 169/89; PULSE 76
[2022-04-30] MEDS: HYDROmorphone HCL INJ (*CRX) 1 MG/ML SYR IV PUSH ×5 (01:57→21:32)
[2022-04-30 05:25] VITALS: BP 166/97; PULSE 76; RESP 18; TEMP 36.5; O2SAT 96
[2022-04-30 06:12] LABS: Hematocrit 40.7 % (42.0-52.0); Hemoglobin 13.8 g/dL (14.0-18.0); Mean Corpuscular HGB Conc 33.9 g/dl (32-36); Mean Corpuscular Hemoglobin 31.3 pg (26-34); Mean Corpuscular Volume 92.3 fl (80-100); Mean Platelet Volume 9.9 fl (7.4-10.4); Platelet Count Result 264 k/mm3 (150-375); Red Blood Count 4.41 M/mm3 (4.6-6.20); White Blood Count 11.6 K/mm3 (4.5-10.0)
[2022-04-30 06:20] LABS: Alanine Aminotransferase 30 U/L (6-50); Albumin Level 4.2 g/dL (3.5-5.1); Alkaline Phosphatase 91 U/L (38-126); Anion Gap 10 mmol/L (8-16); Aspartate Amino Transferase 26 U/L (17-59); Bilirubin,Total 1.8 mg/dL (0.2-1.3); Blood Urea Nitrogen 9 mg/dL (9-20); Calcium 8.6 mg/dL (8.4-10.2); Carbon Dioxide 26 mmol/L (22-30); Chloride 103 mmol/L (98-107); Estimated CRCL calculation 75 ml/min; Estimated Glomerular Filt Rate > 60; Glucose 116 mg/dL (65-110); Magnesium 2.3 mg/dL (1.6-2.3); Potassium 3.7 mmol/L (3.4-5.0); Sodium 139 mmol/L (137-145)
[2022-04-30] MEDS: PANTOPRAZOLE SODIUM IV 40 MG VIAL IV PUSH (09:15)
--- NOTE | 2022-04-30 10:15 | P.PNIM_ITS ---
Progress Note: A&P Assessment and Plan (1) Acute calculous cholecystitis: Code(s): K80.00 - Calculus of gallbladder with acute cholecystitis without obstruction Status: Acute Assessment and Plan: * CT of the Abdomen/pelvis shows acute cholecystitis * Abdominal ultrasound confirmed acute cholecystitis however did show choledocholithiasis * MRCP was performed showed no blocking stone * General surgery consulted * GI consulted thank you for your help * Continue IV Zosyn for now * Surgical procedure scheduled for tomorrow * Clear liquids for now NPO after midnight * Pain medicines and antiemetics ordered (2) Elevated blood pressure reading: Code(s): R03.0 - Elevated blood-pressure reading, without diagnosis of hypertension Status: Acute Assessment and Plan: * Blood pressure 166/97 * Added hydralazine p.r.n. with parameters * No home medications * Continue to trend blood pressure * Adjust therapy as indicated (3) Elevated bilirubin: Code(s): R17 - Unspecified jaundice Status: Acute Assessment and Plan: * T bili upon arrival was 2.3 * Currently 1.8 * Most likely related to acute cholecystitis * Continue trend (4) History of Pryor's esophagus: Code(s): Z87.19 - Personal history of other diseases of the digestive system Status: Acute Assessment and Plan: * GI consulted * Patient does follow-up at [facility] * Last EGD was 4 years ago * EGD might have to wait until after surgical procedure (5) Chronic GERD: Code(s): K21.9 - Gastro-esophageal reflux disease without esophagitis Status: Acute Assessment and Plan: * Continue PPI (6) Bladder stone: Code(s): N21.0 - Calculus in bladder Status: Acute Assessment and Plan: * Incidental finding on the CT * Nonobstructing stone and 5 mm bladder stone * Can follow as an outpatient * Trend urine output * Stable Time Spent With Patient Time: 42 minutes Time with patient: Greater than 35 minutes Subjective Date/time seen: 04/30/22 1015 Interval history: 04/29/22 1015 Patient is lying in bed. Patient stated that he feels pretty okay at this time. He still does have some pain in stated the pain medicine does not get down however his current pain is a 3/10. He denies any nausea, vomiting, diarrhea, shortness of breath, chest pain fluid he does feel kind of weak because he has been lying in bed for 3 days. Vital signs are stable patient is planning to have surgery tomorrow. Blood pressure is a little elevated. 04/29/22? 13:00 This is a 76-year-old male with history of GERD, Pryor esophagus, peptic ulcer disease, kidney stones, vestibular migraines, and severe aortic valve stenosis status post bioprosthetic valve replacement who presented to the emergency department from home for evaluation of abdominal pain. Patient provides the following history. He has experienced intermittent episodes of epigastric discomfort for the last 7 to 10 days associated with belching and bloating. He was seen in the emergency department on 04/19/2022 at which time he was not having abdominal discomfort. CBC, CMP, and troponins were unremarkable. EKG did not show any acute ST segment elevations or depressions and appeared unc
--- NOTE | 2022-04-30 10:15 | PM.IMPN ---
Progress Note: A&P Assessment and Plan (1) Acute calculous cholecystitis: Code(s): K80.00 - Calculus of gallbladder with acute cholecystitis without obstruction Status: Acute Assessment and Plan: CT of the Abdomen/pelvis shows acute cholecystitis Abdominal ultrasound confirmed acute cholecystitis however did show choledocholithiasis MRCP was performed showed no blocking stone General surgery consulted GI consulted thank you for your help Continue IV Zosyn for now Surgical procedure scheduled for tomorrow Clear liquids for now NPO after midnight Pain medicines and antiemetics ordered (2) Elevated blood pressure reading: Code(s): R03.0 - Elevated blood-pressure reading, without diagnosis of hypertension Status: Acute Assessment and Plan: Blood pressure 166/97 Added hydralazine p.r.n. with parameters No home medications Continue to trend blood pressure Adjust therapy as indicated (3) Elevated bilirubin: Code(s): R17 - Unspecified jaundice Status: Acute Assessment and Plan: T bili upon arrival was 2.3 Currently 1.8 Most likely related to acute cholecystitis Continue trend (4) History of Pryor's esophagus: Code(s): Z87.19 - Personal history of other diseases of the digestive system Status: Acute Assessment and Plan: GI consulted Patient does follow-up at [place] Last EGD was 4 years ago EGD might have to wait until after surgical procedure (5) Chronic GERD: Code(s): K21.9 - Gastro-esophageal reflux disease without esophagitis Status: Acute Assessment and Plan: Continue PPI (6) Bladder stone: Code(s): N21.0 - Calculus in bladder Status: Acute Assessment and Plan: Incidental finding on the CT Nonobstructing stone and 5 mm bladder stone Can follow as an outpatient Trend urine output Stable Time Spent With Patient Time: 42 minutes Time with patient: Greater than 35 minutes Subjective Date/time seen: 04/30/22 1015 Interval history: 04/29/22 1015 Patient is lying in bed. Patient stated that he feels pretty okay at this time. He still does have some pain in stated the pain medicine does not get down however his current pain is a 3/10. He denies any nausea, vomiting, diarrhea, shortness of breath, chest pain fluid he does feel kind of weak because he has been lying in bed for 3 days. Vital signs are stable patient is planning to have surgery tomorrow. Blood pressure is a little elevated. 04/29/22? 13:00 This is a 76-year-old male with history of GERD, Pryor esophagus, peptic ulcer disease, kidney stones, vestibular migraines, and severe aortic valve stenosis status post bioprosthetic valve replacement who presented to the emergency department from home for evaluation of abdominal pain. Patient provides the following history. He has experienced intermittent episodes of epigastric discomfort for the last 7 to 10 days associated with belching and bloating. He was seen in the emergency department on 04/19/2022 at which time he was not having abdominal discomfort. CBC, CMP, and troponins were unremarkable. EKG did not show any acute ST segment elevations or depressions and appeared unchanged from prior tracings. CT of the chest/abdomen/pelvis showed no evidence of pulmonary embolism, a 4.8 cm ascending aortic aneurysm, nonobstructing left nephrolithiasis, 5 mm urinary bladder stone, and diffuse fatty infiltration of the liver. He was discharged home and followed up with his primary care provider on 04/27/2022. He continues to have pain, mostly in the epigastric region, which seems to be worse at nighttime. His appetite has not been great and he has been trying to eat a bland diet though that does not seem to be helping with his discomfort. He continues to have issues with bloating
--- NOTE | 2022-04-30 10:52 | PM.PNGS ---
Progress Note: A&P Assessment and Plan (1) Acute calculous cholecystitis: Code(s): K80.00 - Calculus of gallbladder with acute cholecystitis without obstruction Status: Acute Assessment and Plan: Patient still having pain. Will add IV Tylenol for moderate pain. Recommend proceeding with surgery tomorrow. Patient in agreement. (2) S/P aortic valve replacement: Code(s): Z95.2 - Presence of prosthetic heart valve Status: Acute (3) Ascending aortic aneurysm: Code(s): I71.21 - Aneurysm of the ascending aorta, without rupture Status: Acute Subjective Subjective Date/Time Seen: 04/30/22 10:52 Interval history: Still having epigastric pain. No nausea/vomiting. No fevers. Exam GI: Inspection: non-distended GI Palp: Yes Soft to palpation and Yes Tenderness to palpation present (GI) (epigastric) Objective Data Vital Signs Vital Signs: Vital Signs - 24 hr 04/29/22 13:59 04/29/22 12:30 04/29/22 21:24 Temperature 36.4 C 36.6 C Pulse Rate 82 80 79 Respiratory Rate 16 18 Blood Pressure 161/88 H 167/92 H Pulse Oximetry 97 95 Oxygen Delivery 04/29/22 20:00 04/30/22 01:07 04/30/22 05:25 Temperature 36.5 C Pulse Rate 76 76 Respiratory Rate 18 Blood Pressure 169/89 H 166/97 H Pulse Oximetry 96 Oxygen Delivery Room Air Intake/Output Intake/Output: Intake & Output 04/27/22 04/28/22 04/29/22 04/30/22 23:59 23:59 23:59 23:59 Intake Total 1625 368 Balance 1625 368 Meds/Results Medications: Active Medications Generic Name Dose Route Start Last Admin Trade Name Freq PRN Reason Stop Dose Admin Amitriptyline HCl 10 mg 04/29/22 13:28 Amitriptyline Hcl 10 Mg Tablet PO QHS PRN Migraine Headache Hydromorphone HCl 1 mg 04/30/22 01:40 04/30/22 09:15 Hydromorphone Hcl Inj (*Crx) 1 Mg/Ml Syr IV PUSH 1 mg Q3H PRN Administration Pain Rated 7-10 Piperacillin/Tazobactam/Dextrose 3.375 gm in 50 mls @ 100 mls/hr 04/29/22 12:00 04/30/22 06:12 Zosyn 3.375 Gm/D5w 50ml Pm IVPB Infused Q6H PHILLIP Infusion Acetaminophen 1,000 mg in 100 mls @ 400 mls/hr 04/30/22 10:45 Ofirmev 1,000 Mg Ivpb IVPB 05/01/22 10:44 Q6H PRN Pain Rated 4-6 Ondansetron HCl 4 mg 04/29/22 07:12 Ondansetron Inj 4 Mg/2 Ml Vial IV PUSH Q4H PRN Nausea Pantoprazole Sodium 40 mg 04/29/22 09:00 04/30/22 09:15 Pantoprazole Sodium Iv 40 Mg Vial IV PUSH 40 mg QAM PHILLIP Administration Radiology Results: ITS Impressions Abdomen Ultrasound 04/29/22 07:38 IMPRESSION: 1. Acute cholecystitis. 2. Diffuse hepatic steatosis. Abdomen/Pelvis CT 04/29/22 07:41 IMPRESSION: 1. Acute cholecystitis. MRCP 04/29/22 12:18 IMPRESSION: 1. Normal common duct. No choledocholithiasis. 2. Acute cholecystitis. Labs Labs: Laboratory Results - last 24 hr 04/30/22 04/30/22 05:37 05:37 WBC 11.6 H RBC 4.41 L Hgb 13.8 L Hct 40.7 L MCV 92.3 MCH 31.3 MCHC 33.9 RDW 13.0 Plt Count 264 MPV 9.9 Sodium 139 Potassium 3.7 Chloride 103 Carbon Dioxide 26 Anion Gap 10 BUN 9 Creatinine 0.90 Estim Creat Clear Calc 75 Estimated GFR > 60 Glucose 116 H Calcium 8.6 Magnesium 2.3 Total Bilirubin 1.8 H Direct Bilirubin 0.0 AST 26 ALT 30 Alkaline Phosphatase 91 Total Protein 7.0 Albumin 4.2
[2022-04-30 14:00] VITALS: BP 131/83; PULSE 87; RESP 24; TEMP 37.2; O2SAT 94
[2022-04-30 20:00] VITALS: PULSE 87; RESP 18; O2SAT 91
[2022-04-30 21:26] VITALS: BP 164/81; PULSE 87; RESP 18; TEMP 36.8; O2SAT 91
[2022-05-01] VITALS (16 sets, daily range): BP systolic 112–157; BP diastolic 62–90; PULSE 85–104; RESP 14–18; TEMP 36.3–38.3; O2SAT 89–98; BMI 33.5
[2022-05-01] MEDS: HYDROmorphone HCL INJ (*CRX) 1 MG/ML SYR IV PUSH ×3 (01:36→08:35)
[2022-05-01 07:19] LABS: Basophils Absolute Auto 0.1 K/mm3 (0.0-0.1); Basophils Percent Auto 0.4 % (0.2-1.2); Eosinophils Percent Auto 0.3 % (0-4.4); Hematocrit 41.2 % (42.0-52.0); Hemoglobin 14.1 g/dL (14.0-18.0); Immature Granulocyte Absolute 0.04 K/mm3 (0.00-0.031); Immature Granulocyte Percent A 0.3 % (0-0.5); Lymphocytes Absolute Auto 1.14 K/mm3 (0.9-3.2); Lymphocytes Percent Auto 9.5 % (18.3-44.2); Mean Corpuscular HGB Conc 34.2 g/dl (32-36); Mean Corpuscular Hemoglobin 31.6 pg (26-34); Mean Corpuscular Volume 92.4 fl (80-100); Monocytes Absolute Auto 0.9 K/mm3 (0.1-0.6); Monocytes Percent Auto 7.1 % (2.6-8.5); Neutrophils Absolute Auto 9.9 K/mm3 (1.3-6.7); Neutrophils Percent Auto 82.4 % (45.5-73.1); Platelet Count Result 259 k/mm3 (150-375); Red Blood Count 4.46 M/mm3 (4.6-6.20)
[2022-05-01 07:31] LABS: Potassium 3.3 mmol/L (3.4-5.0)
[2022-05-01 07:40] LABS: Alanine Aminotransferase 38 U/L (6-50); Alkaline Phosphatase 108 U/L (38-126); Anion Gap 9 mmol/L (8-16); Aspartate Amino Transferase 33 U/L (17-59); Blood Urea Nitrogen 10 mg/dL (9-20); Calcium 8.5 mg/dL (8.4-10.2); Carbon Dioxide 27 mmol/L (22-30); Chloride 100 mmol/L (98-107); Estimated CRCL calculation 75 ml/min; Estimated Glomerular Filt Rate > 60; Glucose 115 mg/dL (65-110); Sodium 136 mmol/L (137-145)
[2022-05-01] MEDS: PANTOPRAZOLE SODIUM IV 40 MG VIAL IV PUSH (08:31)
[2022-05-01] MEDS: CHLORHEXIDINE GLUCONATE 4% SOL 120 ML BTL 1 APPLIC TOPICAL (08:32)
[2022-05-01] MEDS: LACTATED RINGERS 1,000 ML 30 ML IV CONT ×2 (09:50→12:21)
--- NOTE | 2022-05-01 10:27 | WPDANESEPPF ---
Anes - Initial Pre Proc Eval Procedure: Operation Date: 05/01/22 10:45 Proposed Procedures p Laparoscopic Cholecystectomy; Possible Open - Nomi Lamb DO Date/Time: 05/01/22 10:27 Surgeon: Ericka Ac PA-C Pre Op Diagnosis: Acute cholecystitis Patient Data Age: 76 Gender: M Height: 1.75 m Weight: 103.2 kg Last Vital Signs Temp 98.7 F 05/01/22 09:38 Pulse 90 05/01/22 09:38 Resp 16 05/01/22 09:38 BP 151/84 H 05/01/22 09:38 Pulse Ox 95 05/01/22 09:38 O2 Del Method Room Air 05/01/22 09:38 Allergies Allergy/AdvReac Type Severity Reaction Status Date / Time No Known Allergies Allergy Verified 04/27/22 10:23 Home Medications Medication Instructions Recorded Confirmed Type fish, borage, flaxseed oils-omega 1 cap PO HS 03/13/19 04/29/22 History 3,6,9 cb #1 400 mg-400 mg-400 mg cap ([place] 3-6-9 Complex) multivitamin,xd-veve-hlutsdbd 1 tablet PO DAILY 08/28/19 04/29/22 History (Complete Multivitamin tablet) amitriptyline 10 mg tablet 10 mg PO QHS PRN Migraine Headache 11/01/21 04/29/22 History cyanocobalamin (vitamin B-12) 1 tablet PO Q48H 04/29/22 04/29/22 History omeprazole 40 mg capsule,delayed 20 mg PO DAILY 04/29/22 04/29/22 History release Laboratory Tests 05/01/22 05/01/22 05/01/22 06:44 06:44 06:44 WBC 12.0 K/mm3 H K/mm3 (4.5-10.0) RBC 4.46 M/mm3 L M/mm3 (4.6-6.20) Hgb 14.1 g/dL g/dL (14.0-18.0) Hct 41.2 % L % (42.0-52.0) MCV 92.4 fl fl (80-100) MCH 31.6 pg pg (26-34) MCHC 34.2 g/dl g/dl (32-36) RDW 13.0 % % (11.5-14.5) Plt Count 259 k/mm3 k/mm3 (150-375) MPV 10.0 fl fl (7.4-10.4) Immature Gran % (Auto) 0.3 % % (0-0.5) Neut % (Auto) 82.4 % H % (45.5-73.1) Lymph % (Auto) 9.5 % L % (18.3-44.2) [place] % (Auto) 7.1 % % (2.6-8.5) Eos % (Auto) 0.3 % % (0-4.4) Baso % (Auto) 0.4 % % (0.2-1.2) Lymph # (Auto) 1.14 K/mm3 K/mm3 (0.9-3.2) [place] # (Auto) 0.9 K/mm3 H K/mm3 (0.1-0.6) Eos # (Auto) 0.0 K/mm3 K/mm3 (0-0.3) Baso # (Auto) 0.1 K/mm3 K/mm3 (0.0-0.1) Abs Immat Gran (auto) 0.04 K/mm3 H K/mm3 (0.00-0.031) Absolute Neuts (auto) 9.9 K/mm3 H K/mm3 (1.3-6.7) Absolute Nucleated RBC 0.0 K/mm3 K/mm3 (0.0-0.012) Nucleated RBC % 0.0 % % (0.0-0.2) Sodium 136 mmol/L L mmol/L (137-145) Potassium 3.3 mmol/L L mmol/L (3.4-5.0) Chloride 100 mmol/L mmol/L (98-107) Carbon Dioxide 27 mmol/L mmol/L (22-30) Anion Gap 9 mmol/L mmol/L (8-16) BUN 10 mg/dL mg/dL (9-20) Creatinine 0.90 mg/dL mg/dL (0.7-1.3) Estim Creat Clear Calc 75 ml/min ml/min Estimated GFR > 60 (59 - ) Glucose 115 mg/dL H mg/dL (65-110) Calcium 8.5 mg/dL mg/dL (8.4-10.2) Magnesium 2.0 mg/dL mg/dL (1.6-2.3) Total Bilirubin 3.0 mg/dL H mg/dL (0.2-1.3) AST 33 U/L U/L (17-59) ALT 38 U/L U/L (6-50) Alkaline Phosphatase 108 U/L U/L (38-126) Total Protein 7.0 g/dL g/dL (6.3-8.2) Albumin 4.0 g/dL g/dL (3.5-5.1) Blood Type O Positive Antibody Screen Negative Patient hx anesthesia problems: none Family hx anesthesia problems: none Results Review: All pre-operative results and documents have been reviewed as part of the pre-operative evaluation. [facility] Past Medical History Medical History Ascending aortic aneurysm 4.8 cm in diameter on 04/19/2022. Pryor's esophagus with dysplasia Bilateral nephrolithiasis Bladder stone Chronic GERD Hepatic steatosis Melanoma Nonrheumatic aortic valve stenosis Status post bioprosthetic AVR. Obes
--- NOTE | 2022-05-01 10:37 | WPDHPUPDATE1 ---
History and Physical Update Update Date/Time: 05/01/22 10:37 History and Physical has been reviewed, including an updated exam of the patient. There are NO changes in the patient's condition. Risks, benefits, and alternatives have been discussed and questions answered. Patient agrees to proceed with procedure.
[2022-05-01] MEDS: BUPIVACAINE/EPINEPHRINE 0.5% 50 ML VIAL 30 ML INFILTRATE (11:16)
--- NOTE | 2022-05-01 12:13 | W.PM.PROC2 ---
Procedure Note - Detailed Date of Procedure 05/01/22 Pre-op Diagnosis Acute cholecystitis Post-op Diagnosis Same Procedure Performed Laparoscopic Cholecystectomy Surgeon Nomi Lamb, DO Anesthesia General and Local (0.5% bupivacaine) Indications This is a 76-year-old man who presented to the emergency department with epigastric and right upper quadrant abdominal pain that he has had off and on for the past 2 weeks. It has become more constant lately. He has had some nausea but no other associated symptoms. He was noted to have an elevated white blood count and slightly elevated bilirubin in the emergency department. CT showed evidence of acute cholecystitis. An MRCP showed no filling defects within the common bile duct. Discussions were made with the patient about treatment options and decision was made to proceed with laparoscopic cholecystectomy, possible open. Findings Laparoscopic cholecystectomy was performed. There were many omental adhesions up to the liver and gallbladder wall. The fundus of the gallbladder was difficult to identify at 1st, but with taking down some of the omental adhesions I was able to identify it. The gallbladder appeared tense and dilated and had to be aspirated with a laparoscopic aspirating needle. There were several omental adhesions up to the inferior surface of the liver which caused some significant bleeding just from the liver bed tearing well the adhesions were taken down. I was able to control the bleeding with cautery and Surgicel. Blood loss was about 300 mL total. Eventually was then able to identify the neck of the gallbladder and clearly identify the cystic duct. The cystic duct appeared in size. The gallbladder wall appeared thickened and there appeared to be gallstones within the neck of the gallbladder. The gallbladder was removed and sent to the lab for pathology. I then chose to spray Surgiflo along the gallbladder fossa and inferior edge of the liver where the bleeding had occurred. At the end of the procedure hemostasis appeared adequate. No other abnormalities were noted. Description of Procedure Procedure as well as risks, benefits, and alternatives were discussed with patient. Written consent was obtained and placed in chart prior to procedure. The patient was brought back to surgical suite. Patient was placed in supine position on operating table. Time-out was done to confirm patient and procedure. Patient was then intubated by the anesthesia department. Abdomen was prepped and draped in sterile fashion using chlorhexidine prep. 0.5% bupivacaine with epinephrine was infiltrated at each site of incision. A 5 millimeter incision was made near the umbilicus, and a 5 millimeter Optiview trocar was advanced through the abdominal layers under direct visualization. Once inside the abdominal cavity, carbon dioxide was insufflated to create a pneumoperitoneum. The camera was inserted and the abdomen was inspected. No immediate abnormalities were identified. The patient was placed in reverse Trendelenburg position and rotated slightly to the left. An 11 millimeter incision was made in the subxiphoid region, and an 11 millimeter trocar was inserted under direct visualization. Two 5 millimeter incisions were made in the right upper quadrant, and two 5 millimeter trocars were inserted under direct visualization. The gallbladder was identified and grasped at the fundus and retracted superiorly. It was then grasped at the infundibulum retracted laterally. Careful dissection around the neck of the gallbladder was performed using blunt dissection with a [place] grasper and hook electrocautery. The cystic duct was identified, and a window was created behind it. The cystic artery was also identified and a window was created behind it. The critical view of safety was identified, visualizing the cystic duct running directly into the neck of the gallbladder, and the cystic artery running directly i
--- NOTE | 2022-05-01 16:16 | PM.IMPN ---
Progress Note: A&P Assessment and Plan (1) Acute calculous cholecystitis: Code(s): K80.00 - Calculus of gallbladder with acute cholecystitis without obstruction Status: Acute Assessment and Plan: patient presented with abdominal pain ongoing for 1 week with associated bloating CT of the abdomen/pelvis shows acute cholecystitis Abdominal ultrasound confirmed acute cholecystitis with distended, thickened gallbladder containing sludge MRCP was performed with no evidence of choledocholithiasis patient seen in consultation by General surgery underwent laparoscopic cholecystectomy today and tolerated the procedure well advanced diet as tolerated per General surgery continue IV Zosyn supportive care. Analgesics and antiemetics available as needed (2) Elevated blood pressure reading: Code(s): R03.0 - Elevated blood-pressure reading, without diagnosis of hypertension Status: Acute Assessment and Plan: blood pressures are stable. Continue p.r.n. hydralazine patient is not on any oral antihypertensives (3) Elevated bilirubin: Code(s): R17 - Unspecified jaundice Status: Acute Assessment and Plan: total bilirubin is elevated up to 3.0 today. LFTs are within normal limits likely due to acute cholecystitis patient has been shown to have diffuse hepatic steatosis on imaging trend bilirubin (4) History of Pryor's esophagus: Code(s): Z87.19 - Personal history of other diseases of the digestive system Status: Acute Assessment and Plan: chronic, no acute issues continue IV pantoprazole continue with outpatient GI follow-up (5) Bladder stone: Code(s): N21.0 - Calculus in bladder Status: Acute Assessment and Plan: Incidental finding on the CT of 5 mm nonobstructing bladder stone no acute issues. Outpatient follow-up no evidence of urinary retention. Monitor urine output postoperatively (6) On supplemental oxygen therapy: Code(s): Z99.81 - Dependence on supplemental oxygen Status: Acute Assessment and Plan: patient requiring 2 L supplemental oxygen in the immediate postoperative. Incentive spirometry wean oxygen as tolerated will proceed with CXR in further workup as indicated if unable to wean oxygen Subjective Date/time seen: 05/01/22 16:16 Interval history: date of service: 05/01/2022 Janes Smith is a 76-year-old male with a history of Pryor's esophagus, kidney stones, hepatic steatosis, aortic stenosis, peptic ulcer disease, and several other medical problems who is seen in follow-up for acalculous cholecystitis. He underwent laparoscopic cholecystectomy today and is seen postoperatively. patient feels sleepy after his surgery. Endorses abdominal tenderness but overall feels well and is resting comfortably. He denies shortness of breath. He is requiring supplemental oxygen postoperatively. He is tolerating sips of water. He states he has not urinated since returning from surgery. He denies chest pain. No nausea or vomiting. Review of Systems Review of Systems: All systems reviewed & are unremarkable except as noted in HPI and below Exam Narrative: General: well-nourished, well-appearing 76-year-old male, sitting up in bed, comfortable, NARD Neuro: awake, alert and oriented x4, speech clear, no focal neuro deficits noted HEENMT: normocephalic, atraumatic, EOMI, sclerae anicteric Respiratory: Clear to auscultation anteriorly, nonlabored breathing Cardio: regular rate, regular rhythm with S1-S2 Abdomen: abdominal exam deferred as patient is immediately postop Extremities: no edema, erythema, or tenderness to palpation Skin: no rashes or lesions, warm and dry Psych: appropriate mood and affect, judgment and insight intact Objective Data Vital Signs Vital Signs: Vital Signs - 24 hr 04/30/22 21:26 04/30/22 20:00 05/01/22 05
[2022-05-01] MEDS: LACTATED RINGERS 1,000 ML 100 ML IV CONT (17:36)
[2022-05-01] MEDS: IBUPROFEN 600 MG TABLET PO (21:20)
[2022-05-01] MEDS: ACETAMINOPHEN 325 MG TABLET 650 MG PO (22:20)
[2022-05-02 03:17] VITALS: BP 124/71; PULSE 69; RESP 14; TEMP 36.1; O2SAT 96
[2022-05-02 06:10] LABS: Hematocrit 38.2 % (42.0-52.0); Hemoglobin 12.7 g/dL (14.0-18.0); Mean Corpuscular HGB Conc 33.2 g/dl (32-36); Mean Corpuscular Hemoglobin 31.7 pg (26-34); Mean Corpuscular Volume 95.3 fl (80-100); Platelet Count Result 215 k/mm3 (150-375); Red Blood Count 4.01 M/mm3 (4.6-6.20); Red Cell Distribution Width 12.9 % (11.5-14.5); White Blood Count 10.6 K/mm3 (4.5-10.0)
[2022-05-02 06:11] LABS: Alanine Aminotransferase 80 U/L (6-50); Albumin Level 3.5 g/dL (3.5-5.1); Alkaline Phosphatase 102 U/L (38-126); Anion Gap 4 mmol/L (8-16); Aspartate Amino Transferase 71 U/L (17-59); Bilirubin,Total 1.9 mg/dL (0.2-1.3); Blood Urea Nitrogen 12 mg/dL (9-20); Calcium 8.2 mg/dL (8.4-10.2); Carbon Dioxide 28 mmol/L (22-30); Chloride 99 mmol/L (98-107); Estimated CRCL calculation 62 ml/min; Estimated Glomerular Filt Rate > 60; Glucose 114 mg/dL (65-110); Potassium 3.3 mmol/L (3.4-5.0); Sodium 131 mmol/L (137-145)
[2022-05-02 07:17] VITALS: BP 128/68; PULSE 76; RESP 14; TEMP 36.4; O2SAT 95
[2022-05-02] MEDS: PANTOPRAZOLE SODIUM IV 40 MG VIAL IV PUSH (08:06)
--- NOTE | 2022-05-02 13:01 | WPDANESPN ---
Anes - Prog Note Post-Op Date/Time: 05/02/22 13:01 Cardiovascular status: normal Respiratory status: normal Airway patency: baseline Mental status: baseline Post-Op hydration status: normal Vital Signs: Last Vital Signs Temp 36.4 C 05/02/22 07:17 Pulse 76 05/02/22 07:17 Resp 14 05/02/22 07:17 BP 128/68 05/02/22 07:17 Pulse Ox 95 05/02/22 07:17 O2 Del Method Room Air 05/02/22 08:06 O2 Flow Rate 2 05/01/22 13:20 Pain Score (VAS): 05/05 I/O: Intake & Output 05/01/22 05/02/22 05/02/22 23:59 07:59 15:59 Intake Total 1000 1800 768 Balance 1000 1800 768 Laboratory Tests 05/02/22 05:32 05/02/22 05:32 05/02/22 05/02/22 05:32 05:32 WBC 10.6 H RBC 4.01 L Hgb 12.7 L Hct 38.2 L MCV 95.3 MCH 31.7 MCHC 33.2 RDW 12.9 Plt Count 215 MPV 10.0 Sodium 131 L Potassium 3.3 L Chloride 99 Carbon Dioxide 28 Anion Gap 4 L BUN 12 Creatinine 1.10 Estim Creat Clear Calc 62 Estimated GFR > 60 Glucose 114 H Calcium 8.2 L Total Bilirubin 1.9 H AST 71 H ALT 80 H Alkaline Phosphatase 102 Total Protein 6.0 L Albumin 3.5 Post-procedural complaints: none Patient Feedback: Patient satisfied with anesthetic care.
--- NOTE | 2022-05-02 13:25 | PM.PNGS ---
Progress Note: A&P Assessment and Plan (1) Acute calculous cholecystitis: Code(s): K80.00 - Calculus of gallbladder with acute cholecystitis without obstruction Status: Acute Assessment and Plan: POD#1 and doing well. Okay from our standpoint to discharge home today. Will continue another 5 days of oral antibiotics. Continue low fat diet. Follow-up in [address] Lamb. (2) S/P aortic valve replacement: Code(s): Z95.2 - Presence of prosthetic heart valve Status: Acute (3) Ascending aortic aneurysm: Code(s): I71.21 - Aneurysm of the ascending aorta, without rupture Status: Acute Plan I have discussed the patient's case and plan of care with Dr. Lamb. Subjective Subjective Date/Time Seen: 05/02/22 10:25 Post Op day: 1 (laparoscopic cholecystectomy) Patient reports: feels better, pain is less, tolerating a regular diet, flatus and fever (Temp 101F around midnight last night, afebrile this am) Interval history: Patient seen this morning. Reports feeling much better today after surgery. His abdominal pain on admission has resolved and today he denies any abdominal pain. He has very mild soreness at his incision if he coughs or moves, but no pain. He denies N/V and is tolerating a low fat diet today. Denies shortness of breath or chest pain. Has walked the halls this morning and tolerating activity well. No other complaints at this time. Review of Systems Review of Systems: All systems reviewed & are unremarkable except as noted in HPI and below Exam Const: General: No acute distress Orientation/consciousness: patient oriented x3 GI: Inspection: non-distended and incision (dry and glue intact with RUQ incision with gauze dressing dry and intact) GI Palp: Yes Soft to palpation and No Tenderness to palpation present (GI) Auscultation: normal bowel sounds Neuro: General: moves all extremities and no focal motor deficits Extrem: General: normal to inspection, no calf tenderness bilaterally and no edema Objective Data Vital Signs Vital Signs: Vital Signs - 24 hr 05/01/22 13:47 05/01/22 14:17 05/01/22 15:17 Temperature 97.3 F L 97.9 F 97.4 F L Pulse Rate 87 89 92 Respiratory Rate 16 16 16 Blood Pressure 154/89 H 148/85 H 133/85 Pulse Oximetry 94 96 95 Oxygen Delivery 05/01/22 19:17 05/01/22 21:20 05/01/22 22:20 Temperature 99.8 F H 99.8 F H 101 F H Pulse Rate 104 H Respiratory Rate 14 Blood Pressure 126/70 Pulse Oximetry 93 Oxygen Delivery 05/01/22 20:00 05/01/22 23:14 05/01/22 23:17 Temperature 98.3 F 98.6 F Pulse Rate 89 Respiratory Rate 14 Blood Pressure 112/62 Pulse Oximetry 91 Oxygen Delivery Room Air 05/02/22 03:17 05/02/22 07:17 05/02/22 08:06 Temperature 97.0 F L 97.6 F Pulse Rate 69 76 Respiratory Rate 14 14 Blood Pressure 124/71 128/68 Pulse Oximetry 96 95 Oxygen Delivery Room Air Intake/Output Intake/Output: Intake & Output 04/29/22 04/30/22 05/01/22 05/02/22 23:59 23:59 23:59 23:59 Intake Total 2625 1586 1550 2568 Output Total 800 Balance 2625 7697 377 2268 Meds/Results Medications: Active Medications Generic Name Dose Route Start Last Admin Trade Name Freq PRN Reason Stop Dose Admin Acetaminophen 650 mg 05/01/22 22:00 05/01/22 22:20 Acetaminophen 325 Mg Tablet PO 650 mg Q6H PRN Administration Mild Pain (1-3) or Fever Hydrocodone Bitart/Acetaminophen 1 tab 05/01/22 13:32 Hydrocodone/Acetaminophen (*Crx) 5-325 Mg Tablet PO Q4H PRN Pain Rated 4-6 Hydrocodone Bitart/Acetaminophen 1 tab 05/01/22 13:32 Hydrocodone/Acetaminophen (*Crx) 7.5-325 Mg Tablet PO Q4H PRN Pain Rated 7-10 Amitriptyline HCl 10 mg 04/29/22 13:28 Amitriptyline Hcl 10 Mg Tablet PO QHS PRN Migraine Headache Hydralazine HCl 10 mg 04/30/22 12:32 Hydralazine Hcl 20 Mg/Ml Vial IV PUSH Q8H PRN Blood Pressure - High Piperacillin
[2022-05-02 14:00] VITALS: BP 104/63; PULSE 80; RESP 16; TEMP 37; O2SAT 97
--- NOTE | 2022-05-02 14:42 | P.DS_ITS ---
DS: Admitting Diagnosis Discharge Date 05/02/2022 Admitting Diagnosis Acute cholecystitis DS: Discharge Diagnosis Discharge Diagnosis (1) Acute calculous cholecystitis: Code(s): K80.00 - Calculus of gallbladder with acute cholecystitis without obstruction Status: Acute Assessment and Plan: patient presented with abdominal pain ongoing for 1 week with associated bloating * CT of the abdomen/pelvis showed acute cholecystitis * Abdominal ultrasound confirmed acute cholecystitis with distended, thickened gallbladder containing sludge * MRCP was performed with no evidence of choledocholithiasis * patient seen in consultation by General surgery * underwent laparoscopic cholecystectomy on 05/01/22 and tolerated the procedure well * diet advanced postoperatively and pt able to tolerate low fat diet which he will continue * received IV Zosyn during admission. Will continue PO Flagyl and augmentin as an outpatient for 5 days * supportive care provided * outpatient follow up with general surgery (2) Elevated blood pressure reading: Code(s): R03.0 - Elevated blood-pressure reading, without diagnosis of hypertension Status: Resolved Assessment and Plan: Patient noted to have elevated BP in the 150s-160s systolic. Likely due to pain * he has no history of hypertension is not maintained on any antihypertensives * received p.r.n. hydralazine as needed admission * blood pressures normalized postoperatively (3) Elevated bilirubin: Code(s): R17 - Unspecified jaundice Status: Acute Assessment and Plan: total bilirubin noted to be elevated admission. * felt to be secondary to acute cholecystitis * patient has been shown to have diffuse hepatic steatosis on imaging * LFTs within normal limits preoperatively with slight increase on postop day 1 which was likely due to surgery. * total bilirubin improved postoperatively * discussed with General surgery, no need for continued monitoring. Continue with clinical monitoring as an outpatient (4) History of Pryor's esophagus: Code(s): Z87.19 - Personal history of other diseases of the digestive system Status: Acute Assessment and Plan: chronic, no acute issues * received IV pantoprazole during admission * continue home omeprazole * continue with outpatient GI follow-up (5) Bladder stone: Code(s): N21.0 - Calculus in bladder Status: Acute Assessment and Plan: Incidental finding on the CT of 5 mm nonobstructing bladder stone * no acute issues. Outpatient follow-up * no evidence of urinary retention (6) On supplemental oxygen therapy: Code(s): Z99.81 - Dependence on supplemental oxygen Status: Resolved Assessment and Plan: patient required 2 L supplemental oxygen in the immediate postoperative period. * he was able to be weaned to room air and maintain adequate O2 saturations * incentive spirometry provided DS: Summary Hospital Course Hospital Course: date of admission: 04/29/2022 date of discharge: 05/02/2022 Janes Garcia is a 76-year-old male with a history of Pryor's esophagus, kidney stones, hepatic steatosis, aortic stenosis, peptic ulcer disease, and several other medical problems who presented to the emergency department on 04/29/2022 with complaints of epigastric discomfort and belching ongoing for several weeks. On presentation to the ED, his blood pressure was elevated at 160 8/83 with additional vital signs stable, CBC and BMP unremarka
--- NOTE | 2022-05-02 14:42 | PM.DS ---
DS: Admitting Diagnosis Discharge Date 05/02/2022 Admitting Diagnosis Acute cholecystitis DS: Discharge Diagnosis Discharge Diagnosis (1) Acute calculous cholecystitis: Code(s): K80.00 - Calculus of gallbladder with acute cholecystitis without obstruction Status: Acute Assessment and Plan: patient presented with abdominal pain ongoing for 1 week with associated bloating CT of the abdomen/pelvis showed acute cholecystitis Abdominal ultrasound confirmed acute cholecystitis with distended, thickened gallbladder containing sludge MRCP was performed with no evidence of choledocholithiasis patient seen in consultation by General surgery underwent laparoscopic cholecystectomy on 05/01/22 and tolerated the procedure well diet advanced postoperatively and pt able to tolerate low fat diet which he will continue received IV Zosyn during admission. Will continue PO Flagyl and augmentin as an outpatient for 5 days supportive care provided outpatient follow up with general surgery (2) Elevated blood pressure reading: Code(s): R03.0 - Elevated blood-pressure reading, without diagnosis of hypertension Status: Resolved Assessment and Plan: Patient noted to have elevated BP in the 150s-160s systolic. Likely due to pain he has no history of hypertension is not maintained on any antihypertensives received p.r.n. hydralazine as needed admission blood pressures normalized postoperatively (3) Elevated bilirubin: Code(s): R17 - Unspecified jaundice Status: Acute Assessment and Plan: total bilirubin noted to be elevated admission. felt to be secondary to acute cholecystitis patient has been shown to have diffuse hepatic steatosis on imaging LFTs within normal limits preoperatively with slight increase on postop day 1 which was likely due to surgery. total bilirubin improved postoperatively discussed with General surgery, no need for continued monitoring. Continue with clinical monitoring as an outpatient (4) History of Pryor's esophagus: Code(s): Z87.19 - Personal history of other diseases of the digestive system Status: Acute Assessment and Plan: chronic, no acute issues received IV pantoprazole during admission continue home omeprazole continue with outpatient GI follow-up (5) Bladder stone: Code(s): N21.0 - Calculus in bladder Status: Acute Assessment and Plan: Incidental finding on the CT of 5 mm nonobstructing bladder stone no acute issues. Outpatient follow-up no evidence of urinary retention (6) On supplemental oxygen therapy: Code(s): Z99.81 - Dependence on supplemental oxygen Status: Resolved Assessment and Plan: patient required 2 L supplemental oxygen in the immediate postoperative period. he was able to be weaned to room air and maintain adequate O2 saturations incentive spirometry provided DS: Summary Hospital Course Hospital Course: date of admission: 04/29/2022 date of discharge: 05/02/2022 Janes Garcia is a 76-year-old male with a history of Pryor's esophagus, kidney stones, hepatic steatosis, aortic stenosis, peptic ulcer disease, and several other medical problems who presented to the emergency department on 04/29/2022 with complaints of epigastric discomfort and belching ongoing for several weeks. On presentation to the ED, his blood pressure was elevated at 160 8/83 with additional vital signs stable, CBC and BMP unremarkable total bilirubin 2.3, LFTs within normal limits troponin negative, and abdominal ultrasound revealed acute cholecystitis with diffuse hepatic steatosis. He was admitted to the hospitalist service for further evaluation and management was seen in consultation by General surgery. Underwent laparoscopic cholecystectomy on 05/01/2022 and tolerated the procedure well. He was able to tolerate a low-fat diet following surg
== END 2022-05-02 15:10 | disposition home or self-care (01) | DRG 418 ==
LOC: ANHED 07:12 → ANH3MEDSUR 08:57
PROVIDERS: Nurse Practitioner; Physician Assistant; Surgery; Admitting Provider Hospitalist; Emergency Provider Emergency Medicine; PCP Family Medicine; Visit Provider Physician Assistant
PROC: 0FT44ZZ Resection of Gallbladder, Percutaneous Endoscopic Approach (ICD-10-PCS; CPT 47562; principal; 2022-05-01 10:45)
DX: K80.00 Calculus of gallbladder with acute cholecystitis without obstruction (principal); R17 Unspecified jaundice; R03.0 Elevated blood-pressure reading, without diagnosis of hypertension; N21.0 Calculus in bladder; Z99.81 Dependence on supplemental oxygen; Z95.2 Presence of prosthetic heart valve; Z87.891 Personal history of nicotine dependence
CPT/HCPCS: 36415; 74177; 74183; 76376; 76705; 80048; 80053; 80076; 81001; 83605; 83690; 83735; 84484; 85025; 85027; 86850; 86900; 86901; 87086; 87088; 88304; 93005; 96361; 96366; 96374; 96375; 96376; 99285; A9270; A9577; C9113; G0378; J0131; J1100; J1170; J2270; J2405; J2543; J2704; J2765; J3010; J7030; J7120; Q9967

== ENCOUNTER 2022-06-21 00:29 | Day surgery (SDC) | payer MEDICARE, SELFPAY ==
[2022-06-14 10:17] VITALS: BMI 31.8
--- NOTE | 2022-06-20 12:09 | WPDANESEPPF ---
Anes - Initial Pre Proc Eval Procedure: Operation Date: 06/21/22 08:00 Proposed Procedures p Colonoscopy - Buck River MD Date/Time: 06/20/22 12:09 Surgeon: Buck River MD Pre Op Diagnosis: History of colon polyps Patient Data Age: 77 Gender: M Height: 1.75 m Weight: 98 kg Allergies Allergy/AdvReac Type Severity Reaction Status Date / Time No Known Allergies Allergy Verified 06/21/22 06:56 Home Medications Medication Instructions Recorded Confirmed Type fish, borage, flaxseed oils-omega 1 cap PO HS 03/13/19 06/21/22 History 3,6,9 cb #1 400 mg-400 mg-400 mg cap ([place] 3-6-9 Complex) multivitamin,[id number] 1 tablet PO DAILY 08/28/19 06/21/22 History (Complete Multivitamin tablet) cyanocobalamin (vitamin B-12) 1 tablet PO Q48H 04/29/22 06/21/22 History omeprazole 20 mg capsule,delayed 20 mg PO BID #180 caps 06/13/22 06/21/22 Rx release metoprolol succinate 25 mg 25 mg PO DAILY 06/14/22 06/21/22 History tablet,extended release 24 hr Patient hx anesthesia problems: none Family hx anesthesia problems: none Results Review: All pre-operative results and documents have been reviewed as part of the pre-operative evaluation. [facility] Past Medical History Medical History Ascending aortic aneurysm 4.8 cm in diameter on 04/19/2022. Pryor's esophagus with dysplasia Bilateral nephrolithiasis Bladder stone Chronic GERD Hepatic steatosis Melanoma Nonrheumatic aortic valve stenosis Status post bioprosthetic AVR. Obesity Peptic ulcer disease Right knee DJD Transient ischemic attack Vestibular migraine Surgical History Surgical History (Updated 06/20/22 @ 12:10 by Tj Gibson DO) History of aortic valve replacement with bioprosthetic valve History of cystoscopy History of lumbar fusion History of melanoma excision Hx laparoscopic cholecystectomy 05/01/2022 Family History Family History Mother , 94 Family history of Alzheimer's disease Father S/P CABG x 4 currently alive-97 y/o Other Family history of arthritis Social History Social History Social History: Surrogate medical decision maker: Tonya Garcia, spouse. Code status: Full code. Smoking packs per day: 1 Smoking cigarettes per day: 20.0 Years smoked: 5 Smoking pack-years: 5.00 Smoking status: Former smoker Tobacco type: cigarettes Smokeless tobacco user: chewing tobacco Second hand tobacco smoke exposure: No Smoking end date: 02/26/71 Alcohol intake: current Drinks per week: 1 Alcohol use details: on occasion Substance use: never Substance use type: does not use Lack of Transportation: No Lack of Food: Never True Current Housing: I Have Housing Concerned About Future Housing: No Difficulty Paying Gas/Electric Bills: No Difficulty Paying for Meds: No Currently Unemployed: No Education: Trade/Vocational Certificate Difficulty w/ Childcare or Family Care: No Living arrangements: with family Additional living arrangements comments: Lives with in [place]. Occupation/Education: retired Additional occupation/education comments: Retired from the [employer]. Spiritual care concerns: No Anes - Eval Final PreProcedure Day of Procedure 06/20/22 12:09 Patient weight: obese Heart: regular rate and rhythm Lungs: clear to auscultation Airway: Mallampati scale class III Neurological: alert and oriented Last oral intake: >/= 8 hours ASA classification: III Emergent: no Anesthetic plan: proceed Anesthesia type and monitoring: general GIVS and standard monitoring Results Review: All pre-operative results and documents have been reviewed as part of the pre-operative evaluation. Informed Consent: The patient's anesthetic plan a
[2022-06-21 06:57] VITALS: BP 124/75; PULSE 59; RESP 16; TEMP 36.4; O2SAT 96; BMI 32.8
[2022-06-21] MEDS: AMPICILLIN 2 GM/NS 100 ML 2 GM/100 ML BAG IVPB (07:10)
[2022-06-21] MEDS: GENTAMICIN 80MG/SOD CHL 50 ML 80 MG/50 ML BAG 100 MG IVPB (07:38)
[2022-06-21] MEDS: LACTATED RINGERS 1,000 ML 150 ML IV CONT (07:53)
--- NOTE | 2022-06-21 07:54 | PM.HPGS ---
History of Present Illness History of Present Illness Consent: Risks, benefits, and alternatives have been discussed and questions answered. Patient agrees to proceed with procedure. Chief complaint: History of colon polyps Narrative: Janes Smith is a 77 year old male with colon polyp 5 years ago Review of Systems Constitutional: Constitutional: Denies headache(s) and Denies weakness Eyes: Eyes: Denies blurry vision ENT: Reports Normal hearing present, Denies headache(s) and Denies neck pain Cardiovascular: Cardiovascular: Denies chest pain and Denies dyspnea Respiratory: Respiratory: Denies dyspnea Gastrointestinal: Gastrointestinal: Reports no additional gastrointestinal complaints Genitourinary: Genitourinary: Denies dysuria Musculoskeletal: Musculoskeletal: Denies neck pain Integumentary/Breasts: Skin/Breast: Denies dry skin Neurologic: Reports Normal hearing present, Denies headache(s) and Denies weakness Psychiatric: Psychiatric: Denies anxiety Endocrine: Endocrine: Denies change in body appearance Hematologic/Lymphatic: Hematologic/Lymphatic: Denies easy bleeding Allergic/Immunologic: Allergic/Immunologic: Denies urticaria PMFSH Past Medical History Medical History (Updated 06/21/22 @ 07:54 by Buck River MD) Adenomatous colon polyp Ascending aortic aneurysm 4.8 cm in diameter on 04/19/2022. Pryor's esophagus with dysplasia Bilateral nephrolithiasis Bladder stone Chronic GERD Hepatic steatosis Melanoma Nonrheumatic aortic valve stenosis Status post bioprosthetic AVR. Obesity Peptic ulcer disease Right knee DJD Transient ischemic attack Vestibular migraine Surgical History Surgical History (Updated 06/20/22 @ 12:10 by Tj Gibson DO) History of aortic valve replacement with bioprosthetic valve History of cystoscopy History of lumbar fusion History of melanoma excision Hx laparoscopic cholecystectomy 05/01/2022 Family History Family History Mother , 94 Family history of Alzheimer's disease Father S/P CABG x 4 currently alive-97 y/o Other Family history of arthritis Social History Social History Social History: Surrogate medical decision maker: Tonya Grandagarettlinus, spouse. Code status: Full code. Smoking packs per day: 1 Smoking cigarettes per day: 20.0 Years smoked: 5 Smoking pack-years: 5.00 Smoking status: Former smoker Tobacco type: cigarettes Smokeless tobacco user: chewing tobacco Second hand tobacco smoke exposure: No Smoking end date: 02/26/71 Alcohol intake: current Drinks per week: 1 Alcohol use details: on occasion Substance use: never Substance use type: does not use Lack of Transportation: No Lack of Food: Never True Current Housing: I Have Housing Concerned About Future Housing: No Difficulty Paying Gas/Electric Bills: No Difficulty Paying for Meds: No Currently Unemployed: No Education: Trade/Vocational Certificate Difficulty w/ Childcare or Family Care: No Living arrangements: with family Additional living arrangements comments: Lives with in [place]. Occupation/Education: retired Additional occupation/education comments: Retired from the [employer]. Spiritual care concerns: No Meds Home Medications and Allergies Home Medications Medication Instructions Recorded Confirmed Type fish, borage, flaxseed oils-omega 1 cap PO HS 03/13/19 06/21/22 History 3,6,9 cb #1 400 mg-400 mg-400 mg cap ([place] 3-6-9 Complex) multivitamin,[id number] 1 tablet PO DAILY 08/28/19 06/21/22 History (Complete Multivitamin tablet) cyanocobalamin (vitamin B-12) 1 tablet PO Q48H 04/29/22 06/21/22 History omeprazole 20 mg capsule,delayed 20 mg PO BID #180 caps 06/13/22 06/21/22 Rx release metoprolol succinate 25 mg 25 mg PO DAILY 04
[2022-06-21 08:05] VITALS: BP 108/71; PULSE 60; RESP 20; O2SAT 94
[2022-06-21 08:15] VITALS: BP 105/67; PULSE 58; RESP 20; O2SAT 98
[2022-06-21 08:25] VITALS: BP 123/73; PULSE 56; RESP 18; O2SAT 98
== END 2022-06-21 08:33 | disposition home or self-care (01) ==
PROVIDERS: PCP Family Medicine; Visit Provider Internal Medicine Gastroenterology
PROC: 0DJD8ZZ Inspection of Lower Intestinal Tract, Via Natural or Artificial Opening Endoscopic (ICD-10-PCS; CPT 45378; principal; 2022-06-21 08:00)
DX: Z12.11 Encounter for screening for malignant neoplasm of colon (principal); D12.2 Benign neoplasm of ascending colon; K57.30 Diverticulosis of large intestine without perforation or abscess without bleeding; K64.8 Other hemorrhoids; K21.9 Gastro-esophageal reflux disease without esophagitis; I71.21 Aneurysm of the ascending aorta, without rupture; F17.220 Nicotine dependence, chewing tobacco, uncomplicated; Z95.2 Presence of prosthetic heart valve; Z86.73 Personal history of transient ischemic attack (TIA), and cerebral infarction without residual deficits; Z98.1 Arthrodesis status; E66.9 Obesity, unspecified; Z68.32 Body mass index [BMI] 32.0-32.9, adult
CPT/HCPCS: 45385; 88305; J0290; J1580; J2704; J7120

== ENCOUNTER 2022-11-09 08:04 | Outpatient (CLI) | payer MEDICARE, SELFPAY ==
--- NOTE | ~2022-11-09 | CT_ITS ---
EXAMINATION: CTA chest DATE: 11/09/2022 08:35 INDICATION: Aneurysm of the ascending aorta, without rupture. TECHNIQUE: Computed tomographic angiography (CTA) of the chest was performed with 100 mL Omnipaque-35 0 intravenous contrast. Automated exposure control and iterative reconstruction technique were employ ed. The dose-length product was 902.30 mGy-cm. Maximum intensity projection 3D-reconstructions of the aorta and other arteries were constructed by the technologist on a separate workstation. COMPARISON: Chest CT 04/19/2022 FINDINGS: The lungs demonstrate mild atelectasis. There is mild emphysema. No pleural effusion. There is an aberrant right subclavian artery. There are changes of aortic valve replacement. There is mild aortic atherosclerosis. The aorta measures 4.4 cm in the mid ascending aorta, 3.5 cm at the aortic i sthmus, and 2.8 cm in the mid descending aorta. The heart size is normal. There are coronary artery c alcifications. No pericardial effusion. There are changes of cholecystectomy. There are 3 stones in l eft kidney measuring up to 3 mm. There are bridging endplate osteophytes at multiple levels in the sp ine, consistent with diffuse idiopathic skeletal hyperostosis (DISH). There is a chronic compression fracture of T2. IMPRESSION: 1. Ectasia of ascending aorta measuring 4.4 cm. Reviewed, dictated and finalized at location A.
[2022-11-09 08:26] LABS: Estimated Glomerular Filt Rate 59
[2022-11-09 09:31] LABS: Hematocrit 45.7 % (42.0-52.0); Hemoglobin 15.4 g/dL (14.0-18.0); Mean Corpuscular HGB Conc 33.7 g/dl (32-36); Mean Corpuscular Hemoglobin 31.8 pg (26-34); Mean Corpuscular Volume 94.2 fl (80-100); Platelet Count Result 225 k/mm3 (150-375); Red Blood Count 4.85 M/mm3 (4.6-6.20); Red Cell Distribution Width 13.4 % (11.5-14.5); White Blood Count 5.2 K/mm3 (4.5-10.0)
[2022-11-09 09:34] LABS: Appearance Urine Clear (Clear); Bilirubin Urine Negative (Negative); Blood Urine Negative (Negative); Color Urine Yellow (Yellow); Glucose Urine UA Negative (Negative); Ketones Urine Negative (Negative); Leukocyte Esterase Ur Negative LEU/UL (NEGATIVE); Nitrate Urine Negative (Negative); Protein Urine Negative (Negative); Urobilinogen Urine 0.2 mg/dL (<2.0); pH Urine 7.5 (5.0-9.0)
[2022-11-09 09:37] LABS: Add Urine Microscopic? NO; Specific Grav Ur 1.092 (1.001-1.035)
[2022-11-09 10:00] LABS: Alanine Aminotransferase 32 U/L (6-50); Albumin Level 4.2 g/dL (3.5-5.1); Alkaline Phosphatase 74 U/L (38-126); Anion Gap 9 mmol/L (8-16); Aspartate Amino Transferase 27 U/L (17-59); Bilirubin,Total 1.8 mg/dL (0.2-1.3); Blood Urea Nitrogen 14 mg/dL (9-20); Calcium 8.8 mg/dL (8.4-10.2); Carbon Dioxide 26 mmol/L (22-30); Chloride 102 mmol/L (98-107); Cholesterol 254 mg/dL (0-200); Estimated Glomerular Filt Rate > 60; Glucose 96 mg/dL (65-110); HDL Direct 49 mg/dL; Sodium 137 mmol/L (137-145); Triglycerides 162 mg/dL (<150)
[2022-11-09 10:11] LABS: LDL Cholesterol Direct 159 mg/dL
== END 2022-11-09 08:05 | disposition home or self-care (01) ==
PROVIDERS: PCP Family Medicine; Visit Provider Physician Assistant
DX: I71.21 Aneurysm of the ascending aorta, without rupture (principal); E78.00 Pure hypercholesterolemia, unspecified; Z68.33 Body mass index [BMI] 33.0-33.9, adult; E78.5 Hyperlipidemia, unspecified; R53.83 Other fatigue; Z00.00 Encounter for general adult medical examination without abnormal findings; G45.9 Transient cerebral ischemic attack, unspecified
CPT/HCPCS: 71275; 80053; 80061; 81003; 84443; 85027; Q9967

== ENCOUNTER 2023-01-28 14:39 | Emergency (ER) | payer MEDICARE, SELFPAY ==
--- NOTE | 2023-01-28 14:55 | PC.NURSE ---
pt states epigastric pain is relieved now and states since he feels better he is going to go home. advised to come back if any more problems or complaints and to contact pmd in the morning.
== END 2023-01-28 14:55 | disposition left against medical advice (07) ==
PROVIDERS: PCP Family Medicine
DX: Z53.21 Procedure and treatment not carried out due to patient leaving prior to being seen by health care provider (principal)
CPT/HCPCS: 99199

== ENCOUNTER 2023-03-14 02:59 | Day surgery (SDC) | payer MEDICARE, SELFPAY ==
[2023-02-23 10:24] VITALS: BMI 33.2
--- NOTE | 2023-03-12 09:56 | SUR.PREOP ---
Patient called regarding upcoming procedure. Reviewed preop instructions, appointment times, and procedure prep.
[2023-03-14 12:11] VITALS: BP 139/85; PULSE 63; RESP 20; TEMP 36.3; O2SAT 98
[2023-03-14] MEDS: LACTATED RINGERS 1,000 ML 150 ML IV CONT (12:15)
[2023-03-14] MEDS: GENTAMICIN 80MG/SOD CHL 50 ML 80 MG/50 ML BAG 100 MG IVPB (12:21)
--- NOTE | 2023-03-14 12:35 | WPDANESEPPF ---
Anes - Initial Pre Proc Eval Procedure: Operation Date: 03/14/23 13:00 Proposed Procedures p Esophagogastroduodenoscopy - Buck River MD Date/Time: 03/14/23 12:35 Surgeon: Buck River MD Pre Op Diagnosis: Pryor's esophagus without dysplasia, Gastritis Patient Data Age: 77 Gender: M Height: 1.75 m Weight: 106.1 kg Last Vital Signs Temp 97.3 F L 03/14/23 12:11 Pulse 63 03/14/23 12:11 Resp 20 03/14/23 12:11 BP 139/85 03/14/23 12:11 Pulse Ox 98 03/14/23 12:11 O2 Del Method Room Air 03/14/23 12:11 Allergies Allergy/AdvReac Type Severity Reaction Status Date / Time No Known Allergies Allergy Verified 03/14/23 12:10 Home Medications Medication Instructions Recorded Confirmed Type fish, borage, flaxseed oils-omega 1 cap PO HS 03/13/19 03/14/23 History 3,6,9 cb #1 400 mg-400 mg-400 mg cap ([place] 3-6-9 Complex) multivitamin,[id number] 1 tablet PO DAILY 08/28/19 03/14/23 History (Complete Multivitamin tablet) omeprazole 20 mg capsule,delayed 20 mg PO BID #180 caps 09/08/22 03/14/23 Rx release metoprolol succinate 50 mg 50 mg PO DAILY 02/20/23 03/14/23 History tablet,extended release 24 hr Patient hx anesthesia problems: none Family hx anesthesia problems: none Results Review: All pre-operative results and documents have been reviewed as part of the pre-operative evaluation. [facility] Past Medical History Medical History Adenomatous colon polyp Ascending aortic aneurysm 4.8 cm in diameter on 04/19/2022. Pryor's esophagus with dysplasia Bilateral nephrolithiasis Bladder stone Chronic GERD Hepatic steatosis Melanoma Nonrheumatic aortic valve stenosis Status post bioprosthetic AVR. Obesity Peptic ulcer disease Right knee DJD Transient ischemic attack Vestibular migraine Surgical History Surgical History History of aortic valve replacement with bioprosthetic valve History of cystoscopy History of lumbar fusion History of melanoma excision Hx laparoscopic cholecystectomy 05/01/2022 Family History Family History Mother , 94 Family history of Alzheimer's disease Father S/P CABG x 4 currently alive-97 y/o Other Family history of arthritis Social History Social History Social History: Surrogate medical decision maker: Tonya Radha, spouse. Code status: Full code. Smoking packs per day: 1 Smoking cigarettes per day: 20.0 Years smoked: 5 Smoking pack-years: 5.00 Smoking status: Never smoker Tobacco type: cigarettes Smokeless tobacco user: chewing tobacco Second hand tobacco smoke exposure: No Smoking end date: 02/26/71 Alcohol intake: current Drinks per week: 10 Alcohol use details: BEER--SOMETIMES NO ALCOHOL, OTHER TIMES UP TO 15 A WEEKEND Substance use: never Substance use type: does not use Lack of Transportation: No Lack of Food: Never True Current Housing: I Have Housing Concerned About Future Housing: No Difficulty Paying Gas/Electric Bills: No Difficulty Paying for Meds: No Currently Unemployed: No Education: Trade/Vocational Certificate Difficulty w/ Childcare or Family Care: No Living arrangements: with family Additional living arrangements comments: Lives with in [place]. Occupation/Education: retired Additional occupation/education comments: Retired from the [email or web address]. Spiritual care concerns: No Anes - Eval Final PreProcedure Day of Procedure 03/14/23 12:35 Patient weight: obese Heart: regular rate and rhythm Lungs: clear to auscultation Airway: Mallampati scale class III Neurological: alert and oriented Last oral intake: >/= 8 hours ASA classification: III Emergent: no
[2023-03-14] MEDS: AMPICILLIN 2 GM/NS 100 ML 2 GM/100 ML BAG IVPB (12:45)
--- NOTE | 2023-03-14 13:17 | PM.HPGS ---
History of Present Illness History of Present Illness Consent: Risks, benefits, and alternatives have been discussed and questions answered. Patient agrees to proceed with procedure. Chief complaint: Pryor's esophagus without dysplasia, Gastritis Narrative: Janes Smith is a 77 year old male here for egd, had?Pryor's (treated endoscopically ~ 13 years ago because dysplasia) with several EGDs since then with last one 2020, biopsies negative for dysplasia. Lately with intermittent epigastric pain and belching, still using ppi bid Review of Systems Constitutional: Constitutional: Denies headache(s) and Denies weakness Eyes: Eyes: Denies blurry vision ENT: Reports Normal hearing present, Denies headache(s) and Denies neck pain Cardiovascular: Cardiovascular: Denies chest pain and Denies dyspnea Respiratory: Respiratory: Denies dyspnea Gastrointestinal: Gastrointestinal: Reports no additional gastrointestinal complaints Genitourinary: Genitourinary: Denies dysuria Musculoskeletal: Musculoskeletal: Denies neck pain Integumentary/Breasts: Skin/Breast: Denies dry skin Neurologic: Reports Normal hearing present, Denies headache(s) and Denies weakness Psychiatric: Psychiatric: Denies anxiety Endocrine: Endocrine: Denies change in body appearance Hematologic/Lymphatic: Hematologic/Lymphatic: Denies easy bleeding Allergic/Immunologic: Allergic/Immunologic: Denies urticaria PMFSH Past Medical History Medical History Adenomatous colon polyp Ascending aortic aneurysm 4.8 cm in diameter on 04/19/2022. Pryor's esophagus with dysplasia Bilateral nephrolithiasis Bladder stone Chronic GERD Hepatic steatosis Melanoma Nonrheumatic aortic valve stenosis Status post bioprosthetic AVR. Obesity Peptic ulcer disease Right knee DJD Transient ischemic attack Vestibular migraine Surgical History Surgical History History of aortic valve replacement with bioprosthetic valve History of cystoscopy History of lumbar fusion History of melanoma excision Hx laparoscopic cholecystectomy 05/01/2022 Family History Family History Mother , 94 Family history of Alzheimer's disease Father S/P CABG x 4 currently alive-97 y/o Other Family history of arthritis Social History Social History Social History: Surrogate medical decision maker: Tonya Garcia, spouse. Code status: Full code. Smoking packs per day: 1 Smoking cigarettes per day: 20.0 Years smoked: 5 Smoking pack-years: 5.00 Smoking status: Never smoker Tobacco type: cigarettes Smokeless tobacco user: chewing tobacco Second hand tobacco smoke exposure: No Smoking end date: 02/26/71 Alcohol intake: current Drinks per week: 10 Alcohol use details: BEER--SOMETIMES NO ALCOHOL, OTHER TIMES UP TO 15 A WEEKEND Substance use: never Substance use type: does not use Lack of Transportation: No Lack of Food: Never True Current Housing: I Have Housing Concerned About Future Housing: No Difficulty Paying Gas/Electric Bills: No Difficulty Paying for Meds: No Currently Unemployed: No Education: Trade/Vocational Certificate Difficulty w/ Childcare or Family Care: No Living arrangements: with family Additional living arrangements comments: Lives with in [place]. Occupation/Education: retired Additional occupation/education comments: Retired from the [employer]. Spiritual care concerns: No Meds Home Medications and Allergies Home Medications Medication Instructions Recorded Confirmed Type fish, borage, flaxseed oils-omega 1 cap PO HS 03/13/19 03/14/23 History 3,6,9 cb #1 400 mg-400 mg-400 mg cap ([place] 3-6-9 Complex) multivitamin,[id number] 1
[2023-03-14 13:35] VITALS: BP 102/58; PULSE 61; RESP 23; O2SAT 96
[2023-03-14 13:45] VITALS: BP 98/53; PULSE 60; RESP 16; O2SAT 96
[2023-03-14 13:55] VITALS: BP 106/58; PULSE 60; RESP 19; O2SAT 96
== END 2023-03-14 14:01 | disposition home or self-care (01) ==
PROVIDERS: PCP Family Medicine; Visit Provider Internal Medicine Gastroenterology
PROC: 0DJ08ZZ Inspection of Upper Intestinal Tract, Via Natural or Artificial Opening Endoscopic (ICD-10-PCS; CPT 43235; principal; 2023-03-14 13:00)
DX: K21.00 Gastro-esophageal reflux disease with esophagitis, without bleeding (principal); R10.13 Epigastric pain; K22.719 Barrett's esophagus with dysplasia, unspecified; K44.9 Diaphragmatic hernia without obstruction or gangrene; Z85.820 Personal history of malignant melanoma of skin; E66.9 Obesity, unspecified; Z68.34 Body mass index [BMI] 34.0-34.9, adult; Z86.73 Personal history of transient ischemic attack (TIA), and cerebral infarction without residual deficits; Z87.891 Personal history of nicotine dependence
CPT/HCPCS: 43239; 88305; J0290; J1580; J2704; J7120

== ENCOUNTER 2023-03-20 12:51 | Outpatient (CLI) | payer MEDICARE, SELFPAY ==
--- NOTE | ~2023-03-20 | XR_ITS ---
EXAMINATION: XR abdomen/kub 1V DATE: 03/20/2023 13:06 INDICATION: Bilateral kidney stones. TECHNIQUE: A supine view of the abdomen on 2 radiographs was obtained. COMPARISON: CT abdomen and pelvis 04/29/2022 FINDINGS: There are no dilated loops of bowel. Surgical clips in the right upper quadrant are likely from cholecystectomy. There are changes of aortic valve replacement. There are changes of posterior f usion procedure in lumbar spine. There are phleboliths in the pelvis. There are 3 stones in left kidn ey measuring up to 4 mm. IMPRESSION: 1. Left kidney stones. Reviewed, dictated and finalized at location E. [employer] IMPRESSION: 1. Left kidney stones.
== END 2023-03-20 12:52 | disposition home or self-care (01) ==
PROVIDERS: PCP Family Medicine; Visit Provider Urology
DX: N20.0 Calculus of kidney (principal)
CPT/HCPCS: 74018

== ENCOUNTER 2023-04-11 14:01 | Outpatient (CLI) | payer MEDICARE, SELFPAY ==
[2023-04-11 15:07] LABS: Blood Urea Nitrogen 13 mg/dL (9-20); CRP < 0.5 mg/dL (<1.0); Estimated Glomerular Filt Rate > 60; Uric Acid 6.6 mg/dL (3.5-8.5)
== END 2023-04-11 14:02 | disposition home or self-care (01) ==
PROVIDERS: PCP Family Medicine
DX: M10.072 Idiopathic gout, left ankle and foot (principal)
CPT/HCPCS: 36415; 82565; 84520; 84550; 86140

== ENCOUNTER 2023-05-28 15:04 | Outpatient (CLI) | payer MEDICARE, SELFPAY ==
--- NOTE | ~2023-05-28 | XR_ITS ---
XR chest 2V DATE: 05/28/2023 15:28 INDICATION: Aneurysm of the ascending aorta TECHNIQUE: PA and lateral views COMPARISON: 11/09/2022 CTA chest 04/19/2022 2 view chest FINDINGS: Status post sternotomy and aortic valve replacement. Normal heart size. Mild aortic unfolding. No hilar or mediastinal enlargement is evident. Mild bilateral basilar atelectasis. No pulmonary infiltrate or consolidation, pleural effusion or pul monary vascular congestion or pneumothorax is evident otherwise. IMPRESSION: Mild bibasilar atelectasis Reviewed, dictated and finalized at location B. IMPRESSION: Mild bibasilar atelectasis
== END 2023-05-28 15:05 | disposition home or self-care (01) ==
PROVIDERS: PCP Family Medicine; Visit Provider Family Medicine
DX: R07.9 Chest pain, unspecified (principal); R91.8 Other nonspecific abnormal finding of lung field
CPT/HCPCS: 71046

== ENCOUNTER 2023-06-14 14:45 | Outpatient (CLI) | payer MEDICARE, SELFPAY ==
--- NOTE | ~2023-06-14 | CT_ITS ---
EXAMINATION: CT abdomen pelvis wo con DATE: 06/14/2023 15:25 INDICATION: Right flank pain. TECHNIQUE: Computed tomography (CT) of the abdomen and pelvis was performed without intravenous contr ast. Automated exposure control and iterative reconstruction technique were employed. The dose-length product was 1120.21 mGy-cm. COMPARISON: None. FINDINGS: The visualized portions of the lung bases demonstrate mild atelectasis. No pleural effusion . The heart size is normal. There are changes of aortic valve replacement. There are coronary artery calcifications. No pericardial effusion. There is diffuse hepatic steatosis. Calcifications in the sp lalo are consistent with old granulomatous disease. There are changes of cholecystectomy. The pancrea s and adrenal glands are normal. There are 3 stones in right kidney measuring up to 2 mm. There are 5 stones in left kidney measuring up to 4 mm. There is a 9 mm stone in the bladder. The prostate is mi ldly enlarged. There is diverticulosis of the colon without evidence of diverticulitis. The appendix is normal. Aortic atherosclerosis is noted. There is a small sliding hiatal hernia. There are no path ologically enlarged lymph nodes. There is no free intraperitoneal fluid. There is a right inguinal he rnia containing fat. There are changes of anterior and posterior fusion procedures at L4-L5. There is mild thoracic and lumbar spondylosis. There are bridging endplate osteophytes at multiple levels in the spine, consistent with diffuse idiopathic skeletal hyperostosis (DISH). IMPRESSION: 1. Bilateral nonobstructing kidney stones. 2. Bladder stone. 3. Diffuse hepatic steatosis. Reviewed, dictated and finalized at location E.
== END 2023-06-14 14:46 | disposition home or self-care (01) ==
PROVIDERS: PCP Family Medicine; Visit Provider Physician Assistant
DX: N21.0 Calculus in bladder (principal); N20.0 Calculus of kidney; K76.0 Fatty (change of) liver, not elsewhere classified
CPT/HCPCS: 74176

== ENCOUNTER 2023-06-29 11:25 | Outpatient (CLI) | payer MEDICARE, SELFPAY ==
--- NOTE | 2023-06-29 11:43 | ECG_ITS ---
SEE SCANNED COPY FOR CONFIRMED REPORT MTDD
== END 2023-06-29 11:26 | disposition home or self-care (01) ==
PROVIDERS: PCP Family Medicine; Visit Provider Urology
DX: N21.0 Calculus in bladder (principal); I51.9 Heart disease, unspecified; Z01.818 Encounter for other preprocedural examination
CPT/HCPCS: 87086; 93005

== ENCOUNTER 2023-07-03 00:37 | Day surgery (SDC) | payer MEDICARE, SELFPAY ==
[2023-06-28 10:43] VITALS: BMI 32.3
--- NOTE | 2023-06-28 11:06 | PC.NURSE ---
Report to the Outpatient Waiting Room, entrance under the green pavilion located off [facility], at time ___6:15AM____ on date __07/03/23 . Planned Procedure Time: __8:15AM . Time changes happen often and if your time is changed the preop area will call you the afternoon before. - You and your visitor will be asked to self-screen and do not enter if you have any COVID symptoms. - A mask is optional within the hospital at this time. Patients may have clear liquids (water, carbonated beverages, clear teas, apple juice) until 3 hours prior to surgery with a maximum of 20 ounces. - No food from midnight until time of surgery. Take the following medications with a SIP of water the morning of surgery: ____METOPROLOL DO NOT STOP ANY OF YOUR OTHER PRESCRIPTION MEDICATIONS PRIOR TO SURGERY ?EXCEPT THE FOLLOWING Medications to discontinue per physician ___HOLD FISH OIL 5 DAYS PRE-OP PER DR GREENFIELD(PER PATIENT)-LAST DOSE 06/27/23 HOLD ALL OTHER VITAMINS/SUPPLEMENTS 3 DAYS PRE-OP PER ANESTHESIA- LAST DOSE 06/29/23 Please no make-up, nail mauritian, hairspray, perfume, deodorant, or body powder the day of surgery. No jewelry (including any body piercings) or valuables the day of surgery, leave them at home. Please take a shower or bath the night before, or the morning of, surgery with an antibacterial soap. Wear comfortable, loose fitting clothing. - Jewelry must be removed prior to entering the operating room. Rings and piercings that are not removed may be cut off. - The hospital will not accept responsibility for valuables. - Please leave all valuables, including medications, at home the day of surgery. If you are going home after surgery, a licensed trolley coach driver must drive you home. - NO public transportation without another adult if you receive anesthesia. - We recommend that an adult stay with you for 24 hours following discharge. - We also recommend that you do not drive, make important decision, drink alcoholic beverages, or take any drugs that were not prescribed by your health care provider for at least 24 hours after your discharge time. Follow any additional instructions given to you from your surgeon. If you or anyone in your household have experienced Covid symptoms in the past week, please notify your surgeon or the nurse liaison at the phone number below for possible testing. Telephone instructions given to ____PATIENT and asked if any additional questions and then verbalized understanding. Patient advised to call surgeon office or pre surgery nurse liaison [phone] if any additional questions.
[2023-07-03] VITALS (8 sets, daily range): BP systolic 103–143; BP diastolic 66–100; PULSE 48–80; RESP 12–18; TEMP 36.1–36.9; O2SAT 95–100
--- NOTE | 2023-07-03 07:32 | WPDHPUPDATE1 ---
History and Physical Update Update Date/Time: 07/03/23 07:32 History and Physical has been reviewed, including an updated exam of the patient. There are NO changes in the patient's condition. Risks, benefits, and alternatives have been discussed and questions answered. Patient agrees to proceed with procedure. Proceed with cysto, holmium laser of bladder stone
--- NOTE | 2023-07-03 07:57 | WPDANESEPPF ---
Anes - Initial Pre Proc Eval Procedure: Operation Date: 07/03/23 08:15 Proposed Procedures p Cystoscopy, Bladder Stone Removal, Possible Laser Lithotripsy - Dario Shaikh MD Date/Time: 07/03/23 07:57 Surgeon: Dario Shaikh MD Pre Op Diagnosis: bladder stone Patient Data Age: 78 Gender: M Height: 1.77 m Weight: 101 kg Allergies Allergy/AdvReac Type Severity Reaction Status Date / Time No Known Allergies Allergy Verified 07/03/23 07:58 Home Medications Medication Instructions Recorded Confirmed Type fish, borage, flaxseed oils-omega 1 cap PO HS 03/13/19 06/28/23 History 3,6,9 cb #1 400 mg-400 mg-400 mg cap ([place] 3-6-9 Complex) multivitamin,ex-myhq-opnaytbm 1 tablet PO DAILY 08/28/19 06/28/23 History (Complete Multivitamin tablet) omeprazole 20 mg capsule,delayed 20 mg PO BID #180 caps 05/10/23 07/03/23 Rx release metoprolol succinate 25 mg 25 mg PO QAM 06/28/23 06/28/23 History tablet,extended release 24 hr Patient hx anesthesia problems: post op nausea/vomiting Family hx anesthesia problems: none Results Review: All pre-operative results and documents have been reviewed as part of the pre-operative evaluation. [facility] Past Medical History Medical History Adenomatous colon polyp Ascending aortic aneurysm 4.8 cm in diameter on 04/19/2022. Pryor's esophagus with dysplasia Bilateral nephrolithiasis Bladder stone Chronic GERD Hepatic steatosis Melanoma Nonrheumatic aortic valve stenosis Status post bioprosthetic AVR. Obesity Peptic ulcer disease Right knee DJD Transient ischemic attack Vestibular migraine Surgical History Surgical History History of aortic valve replacement with bioprosthetic valve History of cystoscopy History of lumbar fusion History of melanoma excision Hx laparoscopic cholecystectomy 05/01/2022 Family History Family History Mother , 94 Family history of Alzheimer's disease Father S/P CABG x 4 currently alive-97 y/o Other Family history of arthritis Social History Social History Social History: Surrogate medical decision maker: Tonya Garcia, spouse. Code status: Full code. Smoking packs per day: 1 Smoking cigarettes per day: 20.0 Years smoked: 5 Smoking pack-years: 5.00 Smoking status: Former smoker Tobacco type: cigarettes Smokeless tobacco user: chewing tobacco Second hand tobacco smoke exposure: No Smoking end date: 08/27/71 Alcohol intake: current Drinks per week: 4 Alcohol use details: BEER--SOMETIMES NO ALCOHOL, OTHER TIMES UP TO 15 A WEEKEND Substance use: never Substance use type: does not use Do You Feel Safe in your Home?: Yes Lack of Transportation: No Lack of Food: Never True Current Housing: I Have Housing Concerned About Future Housing: No Difficulty Paying Gas/Electric Bills: No Difficulty Paying for Meds: No Currently Unemployed: No Education: Trade/Vocational Certificate Difficulty w/ Childcare or Family Care: No Living arrangements: with family Additional living arrangements comments: Occupation/Education: retired Additional occupation/education comments: Retired from the [employer]. Spiritual care concerns: No Anes - Eval Final PreProcedure Day of Procedure 07/03/23 07:57 Patient weight: obese Heart: regular rate and rhythm Lungs: clear to auscultation Airway: Mallampati scale class III Neurological: alert and oriented Last oral intake: >/= 8 hours ASA classification: III Emergent: no Anesthetic plan: proceed Results Review: All pre-operative results and documents have been reviewed as part of the pre-operative evaluation. Informed Consent: The patient's anesthetic plan and its attendant ri
[2023-07-03] MEDS: LACTATED RINGERS 1,000 ML 30 ML IV CONT (07:58)
[2023-07-03] MEDS: LIDOCAINE HCL 2% GEL UROJET 10 ML PKG MUCOUS MEM (08:17)
[2023-07-03] MEDS: ceFAZolin 2 GM/D5W 50 ML 2 GM/50 ML BAG IVPB (08:17)
--- NOTE | 2023-07-03 08:49 | W.PM.PROC2 ---
Procedure Note - Detailed Date of Procedure 07/03/23 Pre-op Diagnosis bladder stone Post-op Diagnosis Same Procedure Performed Cystoscopy with bladder stone extraction (9mm and 5 mm) Surgeon Dario Shaikh MD Anesthesia General Description of Procedure Patient was taken to the OR and correctly identified. He was prepped and draped in the usual sterile fashion. 22 fr scope was inserted into the urethra. There are no urethral strictures. He does have an enlarged prostate with lateral lobes and a median lobe. It was somewhat of a elevated median bar area in addition. Upon entering the bladder there was 2+ trabeculation noted. No tumors noted. He has 2 bladder stones measuring 9 mm and 5 mm. Using an escape basket was able to retrieve these and send those for analysis. Reinspection revealed no residual stones. Bladder was drained. 2% viscous lidocaine was inserted into the urethra niece taken recovery stable condition. This completes dictation. Please send a copy of op note to my office. Estimated Blood Loss 0 Drains No Packing No Pathology Yes Complications No immediate complications Condition Stable Disposition PACU
== END 2023-07-03 10:15 | disposition home or self-care (01) ==
PROVIDERS: PCP Family Medicine; Visit Provider Urology
PROC: (CPT 52352; principal; 2023-07-03 08:15)
DX: N21.0 Calculus in bladder (principal); I71.21 Aneurysm of the ascending aorta, without rupture; K21.9 Gastro-esophageal reflux disease without esophagitis; K76.0 Fatty (change of) liver, not elsewhere classified; Z86.73 Personal history of transient ischemic attack (TIA), and cerebral infarction without residual deficits; E66.9 Obesity, unspecified; Z68.33 Body mass index [BMI] 33.0-33.9, adult; Z98.1 Arthrodesis status; Z95.2 Presence of prosthetic heart valve; F17.220 Nicotine dependence, chewing tobacco, uncomplicated
CPT/HCPCS: 52310; 82365; 87086; 88300; 93005; C1769; J0690; J1100; J2405; J2704; J3010; J7120

== ENCOUNTER 2023-09-13 15:20 | Outpatient (CLI) | payer MEDICARE, SELFPAY ==
--- NOTE | ~2023-09-13 | XR_ITS ---
Right elbow Technique: AP, oblique, and lateral views were obtained. Clinical History: Pain Findings: No acute fracture or dislocation is seen. Osseous alignment is anatomic. Joint spaces are p reserved. There is mild enthesopathic change at the medial and lateral epicondyles. There is no displ acement of the fat pads, and soft tissues are unremarkable. Impression: No acute abnormality. Mild enthesopathic change at the medial and lateral epicondyles. Reviewed, dictated and finalized at location M. Impression: No acute abnormality. Mild enthesopathic change at the medial and lateral epico ndyles.
== END 2023-09-13 15:21 | disposition home or self-care (01) ==
LOC: ANHIMG 15:24
PROVIDERS: PCP Family Medicine; Visit Provider Physician Assistant
DX: M25.521 Pain in right elbow (principal)
CPT/HCPCS: 73080

== ENCOUNTER 2023-11-22 09:51 | Outpatient (CLI) | payer MEDICARE, SELFPAY ==
[2023-11-22 10:31] LABS: Hematocrit 45.9 % (42.0-52.0); Hemoglobin 15.4 g/dL (14.0-18.0); Mean Corpuscular HGB Conc 33.6 g/dl (32-36); Mean Corpuscular Hemoglobin 31.4 pg (26-34); Mean Corpuscular Volume 93.5 fl (80-100); Mean Platelet Volume 9.6 fl (7.4-10.4); Platelet Count Result 258 k/mm3 (150-375); Red Blood Count 4.91 M/mm3 (4.6-6.20); Red Cell Distribution Width 13.3 % (11.5-14.5); White Blood Count 6.2 K/mm3 (4.5-10.0)
[2023-11-22 10:34] LABS: Add Urine Microscopic? YES; Appearance Urine Clear (Clear); Bacteria Urine None Seen /hpf; Bilirubin Urine Negative (Negative); Blood Urine Negative (Negative); Color Urine Yellow (Yellow); Glucose Urine UA Negative (Negative); Ketones Urine Negative (Negative); Leukocyte Esterase Ur Trace LEU/UL (Negative); Nitrate Urine Negative (Negative); Non Pathogenic Casts 0-2; Protein Urine Negative (Negative); RBC Urine 0-2 /hpf (0-2); Specific Grav Ur 1.016 (1.001-1.035); Squamous Epithelial Cell Urine None Seen /hpf (Few); Urobilinogen Urine 0.2 mg/dL (<2.0); WBC Urine 0-5 /hpf (0-3); pH Urine 5.5 (5.0-9.0)
[2023-11-22 10:40] LABS: Alanine Aminotransferase 28 U/L (6-50); Albumin Level 4.1 g/dL (3.5-5.1); Alkaline Phosphatase 73 U/L (38-126); Anion Gap 9 mmol/L (4-12); Aspartate Amino Transferase 27 U/L (17-59); Bilirubin,Total 1.4 mg/dL (0.2-1.3); Blood Urea Nitrogen 12 mg/dL (9-20); Calcium 8.9 mg/dL (8.4-10.2); Carbon Dioxide 26 mmol/L (22-30); Chloride 104 mmol/L (98-107); Cholesterol 232 mg/dL (0-200); Estimated Glomerular Filt Rate > 60; Glucose 95 mg/dL (65-110); HDL Direct 53 mg/dL; Potassium 4.2 mmol/L (3.4-5.0); Sodium 139 mmol/L (137-145); Triglycerides 121 mg/dL (<150)
[2023-11-22 10:51] LABS: LDL Cholesterol Direct 149 mg/dL
[2023-11-22 10:56] LABS: Hemoglobin A1C 6.1 % (<5.7)
[2023-11-22 11:11] LABS: Prostate Specific Antigen 2.6 ng/mL (< OR = 4.0)
== END 2023-11-22 09:52 | disposition home or self-care (01) ==
LOC: ANHLAB 10:00
PROVIDERS: PCP Family Medicine; Visit Provider Family Medicine
DX: E78.00 Pure hypercholesterolemia, unspecified (principal); R53.83 Other fatigue; R35.1 Nocturia; R73.01 Impaired fasting glucose
CPT/HCPCS: 36415; 80053; 80061; 81001; 83036; 84153; 84443; 85027

== ENCOUNTER 2023-12-13 09:49 | Emergency (ER) | payer MEDICARE, SELFPAY ==
--- NOTE | ~2023-12-13 | CT_ITS ---
CT of the Abdomen and Pelvis: Indication: Abdominal pain Technique: 2.5 mm axial scans were obtained through the abdomen and pelvis following intravenous adm inistration of 100 cc of Omnipaque 350. Dose reduction technique was used on this scan by utilizing a utomated exposure control and iterative reconstruction technique. The dose-length product (DLP) was 1 358.32 mGy-cm. COMPARISON: 06/14/2023 Findings: Scans through the lung bases are unremarkable. There is mild diffuse hepatic steatosis. Cholecystectomy clips are present. The spleen, pancreas, adr enals and right kidney are within normal limits. Nonobstructing left renal stones measuring up to 5 m m in maximum diameter. No evidence of aortic aneurysm. No lymphadenopathy. No bowel obstruction or bowel wall thickening. There is no evidence to suggest acute appendicitis. Pr obable mild mesenteric panniculitis. Images through the pelvis were performed. Urinary bladder unremarkable. Prostate gland mildly enlarge d. No ascites. 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 Diffuse hepatic steatosis. Nonobstructing left nephrolithiasis. Reviewed, dictated and finalized at location M. 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 Diffuse hepatic steatosis. Nonobstructing left nephrolithiasis.
[2023-12-13 09:52] VITALS: BP 167/84; PULSE 78; RESP 17; TEMP 36.4; O2SAT 99
[2023-12-13 10:11] LABS: Basophils Absolute Auto 0.1 K/mm3 (0.0-0.1); Basophils Percent Auto 0.9 % (0.2-1.2); Eosinophils Absolute Auto 0.3 K/mm3 (0-0.3); Hematocrit 47.5 % (42.0-52.0); Hemoglobin 16.3 g/dL (14.0-18.0); Immature Granulocyte Absolute 0.03 K/mm3 (0.00-0.031); Immature Granulocyte Percent A 0.4 % (0-0.5); Lymphocytes Absolute Auto 2.38 K/mm3 (0.9-3.2); Lymphocytes Percent Auto 34.4 % (18.3-44.2); Mean Corpuscular HGB Conc 34.3 g/dl (32-36); Mean Corpuscular Hemoglobin 32.1 pg (26-34); Mean Corpuscular Volume 93.5 fl (80-100); Mean Platelet Volume 9.8 fl (7.4-10.4); Monocytes Absolute Auto 0.4 K/mm3 (0.1-0.6); Monocytes Percent Auto 5.6 % (2.6-8.5); Neutrophils Absolute Auto 3.8 K/mm3 (1.3-6.7); Neutrophils Percent Auto 54.7 % (45.5-73.1); Platelet Count Result 252 k/mm3 (150-375); Red Blood Count 5.08 M/mm3 (4.6-6.20); Red Cell Distribution Width 13.3 % (11.5-14.5); White Blood Count 6.9 K/mm3 (4.5-10.0)
[2023-12-13 10:20] LABS: Alanine Aminotransferase 28 U/L (6-50); Albumin Level 4.3 g/dL (3.5-5.1); Alkaline Phosphatase 81 U/L (38-126); Anion Gap 9 mmol/L (4-12); Aspartate Amino Transferase 28 U/L (17-59); Bilirubin,Total 1.7 mg/dL (0.2-1.3); Blood Urea Nitrogen 15 mg/dL (9-20); Calcium 9.3 mg/dL (8.4-10.2); Carbon Dioxide 26 mmol/L (22-30); Chloride 103 mmol/L (98-107); Estimated CRCL calculation 66 ml/min; Estimated Glomerular Filt Rate > 60; Glucose 158 mg/dL (65-110); Lipase 84 U/L (23-300); Potassium 3.7 mmol/L (3.4-5.0); Sodium 138 mmol/L (137-145)
--- NOTE | 2023-12-13 10:35 | ED.ABDPAIN ---
HPI - Abdominal Pain General Chief Complaint: Abdominal Pain Stated Complaint: left lower abd pain Time Seen by Provider: 12/13/23 10:34 Source: patient Mode of arrival: ambulatory Limitations: no limitations History of Present Illness HPI narrative: Patient presents with LLQ abdominal pain of a few hours duration. It started acutely. No meds taken at home. No associated N/V/D. No urinary symptoms (dysuria, hematuria; occasionally urgency or frequency but not normally/recently). Pain was 8/10 in severity at the time but he states much better now, no longer having pain. This has never happened before. Has previously seen a GI specialist. History of colonoscopy and multiple EGDs (given history of esophageal cancer versus Barrets esophagus). He was receiving treatment at [facility] but is now on a 3 year endoscopy plan, last one was approximately 1 year ago. He states he has a history of ulcer. LBM this morning. No constipation or fevers. Related Data Home Medications Medication Instructions Recorded Confirmed fish, borage, flaxseed oils-omega 1 cap PO HS 03/13/19 11/22/23 3,6,9 cb #1 400 mg-400 mg-400 mg cap ([place] 3-6-9 Complex) multivitamin,xx-fkoo-hsxfyuiu 1 tablet PO DAILY 08/28/19 11/22/23 (Complete Multivitamin tablet) Allergies Allergy/AdvReac Type Severity Reaction Status Date / Time No Known Allergies Allergy Verified 12/13/23 09:50 [facility] Past Medical History Medical History (Updated 12/13/23 @ 12:05 by Hemalatha Pierre MD) Adenomatous colon polyp Ascending aortic aneurysm 4.8 cm in diameter on 04/19/2022. Pryor's esophagus with dysplasia Bilateral nephrolithiasis Bladder stone Chronic GERD Hepatic steatosis Melanoma Nonrheumatic aortic valve stenosis Status post bioprosthetic AVR. Obesity Peptic ulcer disease Right knee DJD Transient ischemic attack Vestibular migraine Surgical History Surgical History H/O cervical spine surgery History of aortic valve replacement with bioprosthetic valve History of colonoscopy History of cystoscopy History of esophagogastroduodenoscopy (EGD) multiple; now q3 years; last approximately 2022 History of lumbar fusion History of melanoma excision Hx laparoscopic cholecystectomy 05/01/2022 Family History Family History Mother , 94 Family history of Alzheimer's disease Father S/P CABG x 4 currently alive-97 y/o Sibling No problems noted. Other Family history of arthritis Social History Social History Social History: Surrogate medical decision maker: Tonya Grandagarettlinus, spouse. Code status: Full code. Smoking packs per day: 1 Smoking cigarettes per day: 20.0 Years smoked: 5 Smoking pack-years: 5.00 Smoking status: Former smoker Tobacco type: cigarettes Smokeless tobacco user: chewing tobacco Second hand tobacco smoke exposure: No Smoking end date: 08/27/71 Alcohol intake: current Drinks per week: 4 Alcohol use details: BEER--SOMETIMES NO ALCOHOL, OTHER TIMES UP TO 15 A WEEKEND Substance use: never Substance use type: does not use Do You Feel Safe in your Home?: Yes Lack of Transportation: No Lack of Food: Never True Current Housing: I Have Housing Concerned About Future Housing: No Difficulty Paying Gas/Electric Bills: No Difficulty Paying for Meds: No Currently Unemployed: No Education: Associate Degree Difficulty w/ Childcare or Family Care: No Living arrangements: with family Additional living arrangements comments: Occupation/Education: retired Additional occupation/education comments: Retired from the [employer]. Gender identity (if verbalized by the patient): Male Spiritual care concerns: No Exam Narrative: GENERAL: Well-appearing, well-nourished, and in no
[2023-12-13 11:14] VITALS: BP 159/90; PULSE 82; RESP 17; TEMP 36.3; O2SAT 98
[2023-12-13 11:51] LABS: Add Urine Microscopic? YES; Appearance Urine Clear (Clear); Bacteria Urine None Seen /hpf; Bilirubin Urine Negative (Negative); Blood Urine 3+ (Negative); Color Urine Yellow (Yellow); Glucose Urine UA Negative (Negative); Ketones Urine Trace mg/dL (Negative); Leukocyte Esterase Ur Negative LEU/UL (Negative); Need Manual Microscopic Reviewed; Nitrate Urine Negative (Negative); Non Pathogenic Casts 0-2; Protein Urine Trace mg/dL (Negative); RBC Urine 51-100 /hpf (0-2); Specific Grav Ur 1.041 (1.001-1.035); Squamous Epithelial Cell Urine None Seen /hpf (Few); Urobilinogen Urine 0.2 mg/dL (<2.0); WBC Urine 0-5 /hpf (0-3); pH Urine 5.5 (5.0-9.0)
[2023-12-13] MEDS: ACETAMINOPHEN 500 MG TABLET 1000 MG PO (13:41)
[2023-12-13 13:44] VITALS: BP 141/98; PULSE 68; RESP 18; TEMP 36.8; O2SAT 97
== END 2023-12-13 13:46 | disposition home or self-care (01) ==
PROVIDERS: Emergency Provider Student in an Organized Health Care Education/Training Program; PCP Family Medicine
DX: R10.32 Left lower quadrant pain (principal); K65.4 Sclerosing mesenteritis; K76.0 Fatty (change of) liver, not elsewhere classified; E80.6 Other disorders of bilirubin metabolism; R31.9 Hematuria, unspecified; R73.9 Hyperglycemia, unspecified; N20.0 Calculus of kidney; I35.0 Nonrheumatic aortic (valve) stenosis; K22.70 Barrett's esophagus without dysplasia; K21.9 Gastro-esophageal reflux disease without esophagitis; M17.11 Unilateral primary osteoarthritis, right knee; Z98.1 Arthrodesis status; Z95.2 Presence of prosthetic heart valve; Z85.820 Personal history of malignant melanoma of skin; Z87.11 Personal history of peptic ulcer disease; Z86.73 Personal history of transient ischemic attack (TIA), and cerebral infarction without residual deficits; Z87.891 Personal history of nicotine dependence; Z86.0101 Personal history of adenomatous and serrated colon polyps; Z90.49 Acquired absence of other specified parts of digestive tract
CPT/HCPCS: 36415; 74177; 80053; 81001; 83690; 85025; 99284; A9270; Q9967

== ENCOUNTER 2023-12-28 15:11 | Outpatient (CLI) | payer MEDICARE, SELFPAY ==
--- NOTE | ~2023-12-28 | US_ITS ---
EXAMINATION: US carotid duplex BI DATE: 12/28/2023 15:40 INDICATION: Transient ischemic attack. TECHNIQUE: Grayscale, color Doppler, and pulsed Doppler images of the cervical carotid arteries were obtained. The degree of vessel stenosis is placed in one of the following categories: normal, <50%, 5 0-69%, >=70% but less than near-occlusion, near-occlusion, or total occlusion. Note that percent sten osis relative to normal distal artery lumen diameter is indirectly measured from velocity measurement s as described by Collin, et al. Radiology 2003; 229:340-346. COMPARISON: Ultrasound 03/08/2018 FINDINGS: RIGHT: The right common carotid artery (CCA) peak systolic velocity (PSV) is 78 cm/s. The right internal car otid artery (ICA) PSV is 56 cm/s. The right ICA end-diastolic velocity (EDV) is 10 cm/s. The right IC A/CCA PSV ratio is 0.7. Grayscale and color Doppler images yield an estimate of <50% diameter reducti on from plaque in the ICA. There is antegrade flow in the right vertebral artery. LEFT: The left CCA PSV is 70 cm/s. The left ICA PSV is 77 cm/s. The left ICA EDV is 30 cm/s. The left ICA/C CA PSV ratio is 1.1. Grayscale and color Doppler images yield an estimate of <50% diameter reduction from plaque in the ICA. There is antegrade flow in the left vertebral artery. IMPRESSION: 1. <50% stenosis in the right internal carotid artery. 2. <50% stenosis in the left internal carotid artery. Reviewed, dictated and finalized at location B.
--- NOTE | ~2023-12-28 | CT_ITS ---
EXAMINATION: CT brain wo con DATE: 12/28/2023 15:41 INDICATION: Transient cerebral ischemic attack. TECHNIQUE: Computed tomography (CT) of the head was performed without intravenous contrast. The mA wa s adjusted according to patient size. Iterative reconstruction technique was employed. The dose-lengt h product was 681.00 mGy-cm. COMPARISON: Head CT 07/13/2020 FINDINGS: There are scattered areas of low attenuation in the cerebral white matter. There is no intr acranial hemorrhage, acute infarction, or abnormal intracranial mass lesion. The ventricles are ophelia l in size. There is mild mucosal thickening in the paranasal sinuses. The mastoid air cells are ophelia l. There are likely changes of ocular lens replacement surgeries. IMPRESSION: 1. Stable mild nonspecific cerebral white matter disease, which likely represents chronic small vesse l ischemic disease. Reviewed, dictated and finalized at location B. IMPRESSION: 1. Stable mild nonspecific cerebral white matter disease, which likely represen ts chronic small vessel ischemic disease.
== END 2023-12-28 15:12 | disposition home or self-care (01) ==
LOC: ANHIMG 15:17
PROVIDERS: PCP Family Medicine; Visit Provider Family Medicine
DX: I65.23 Occlusion and stenosis of bilateral carotid arteries (principal); R90.82 White matter disease, unspecified
CPT/HCPCS: 70450; 93880

== ENCOUNTER 2024-03-24 10:40 | Outpatient (CLI) | payer MEDICARE, SELFPAY ==
--- NOTE | ~2024-03-24 | XR_ITS ---
AP view of the pelvis and AP and lateral views of the left hip Clinical history: Pain Findings: No acute fracture or dislocation is seen. Osseous alignment is anatomic. Bilateral hip and SI joint spaces are preserved. Lumbosacral spinal fixation hardware present. Soft tissues are unremar kable. Impression: No acute abnormality. Reviewed, dictated and finalized at location . MOULDING MACHINE OPERATOR Impression: No acute abnormality.
--- OUTSIDE RECORDS SUMMARY | 2024-03-24 11:43 | XMS_ITS | Referral Summary ---
Author Organization [facility] Address [address] [place] [address] Care Team Providers Care Funeral Workers Name Role Phone Noel Littlejohn MD Primary Care Provider [phone] Source Comments [facility],non-owned Affiliates and Associated Physician Practices is amultiple site organization consisting of ambulatory clinics and hospital sitesin [place], [place]. This disclosure is being madepursuant to the Care Everywhere program and may not contain all information available regarding this patient. Last updated 17.[facility] Allergies No known active allergies Medications * Be aware that medications may not be up to date on this document. Alwaysverify current medications with the patient. Medication Sig Dispensed Refills Start Date End Date Status multivitamin daily (THERAGRAN) tablet Take 1 (one) tablet by mouth daily with food Active omeprazole (PRILOSEC) 20 MG capsule Take 1 (one) capsule by mouth 2 times daily, before breakfast and supper Active [place] 3-6-9 Fatty Acids (OMEGA 3-6-9 COMPLEX) CAPS Take by mouth at bedtime Active metoprolol succinate XL 24hr (Toprol XL) 25 MG tablet Take 1 (one) tablet by mouth once daily 05/12/2022 Active Active Problems Problem Noted Date Diagnosed Date Pain in joint, lower leg 11/22/2012 Primary localized osteoarthrosis, lower leg 10/27 Thoracic or lumbosacral neur itis or radiculitis, unspecified 10/11/2012 Sacroiliitis, not elsewhere classified 3 Social History Tobacco Use Types Packs/Day Years Used Date Smoking Tobacco: Never Smokeless Tobacco: Never Alcohol Use Standard Drinks/Week Comments Yes 0 (1 standard drink = 0.6 oz pur e alcohol) occasional Sex and Gender Information Value Date Recorded Sex Assigned at Not on file Gender Identity Not on file Sexual Orientation Not on file Last Filed Vital Signs Vital Sign Reading Time Taken Comments Blood Pressure 160/92 11/21/2022 12:24 PM CDT Pulse 69 11/21/2022 12:24 PM CDT Temperature 36.8 ??C (98.2 ??F) 11/21/2022 11:06 AM C DT Respiratory Rate 16 11/21/2022 12:24 PM CDT Oxygen Saturation 97% 11/21/2022 12:24 PM CDT Inhaled Oxygen Concentration - - Weight 99.8 kg (220 lb) 11/21/2022 11:06 AM CDT Height 177.8 cm (5' 10 ) 11/21/2022 11:06 AM CDT Body Mass Index 31.57 11/21/2022 11:06 AM CDT Plan of Treatment Not on file Care Teams Funeral Workers Relationship Specialty Start Date End Date Noel Littlejohn MD [address] [place] [address] PCP - General 05/15/18
--- OUTSIDE RECORDS SUMMARY | 2024-03-24 11:43 | XMS_ITS | Clinical Summary ---
Author Organization [facility] Address [address] [place] [address] Care Team Providers Care Obstetrician Name Role Phone Noel Littlejohn MD Primary Care Provider Source Comments [facility],non-owned Affiliates and Associated Physician Practices is amultiple site organization consisting of ambulatory clinics and hospital sitesin [place], [place], [place] and [place]. This disclosure is being madepursuant to the Care Everywhere program and may not contain all information available regarding this patient. Last updated 17.[facility] Allergies No known active allergies Medications * [...] times daily, before breakfast and supper Active Happy 3-6-9 Fatty Acids (OMEGA 3-6-9 COMPLEX) CAPS [...] unspecified 10/11/2012 Sacroiliitis, not elsewhere classified 3 Family History Relation Name Status Comments Father Alive Mother Alive Social History Tobacco Use Types Packs/Day Years [...] 11/21/2022 11:06 AM CDT Plan of Treatment Health Maintenance Due Date Last Done Comments HEPATITIS C SCREENING 05/14/1963 DTAP/TDAP/TD VACCINES (1 - Tdap) 05/18/1966 PNEUMOCOCCAL VACCINE 50+ (1 of 1 - PCV) 05/18/1997 ZOSTER VACCINE (1 of 2) 05/18/1997 Respiratory Syncytial Virus (RSV) Vaccine Pt: or over 60 yrs (1 - 1-dose 75+ series) 05/18/2022 COVID-19 VACCINE (3 - 2023-2 5 season) 2023 05/05/2020, 04/08/2020 INFLUENZA VACCINE (#1) 2023 DEPRESSION SCREENING 02/27/2024 MEDICARE AWV ? CALENDAR YEAR 2024 HEPATITIS B VACCINE Aged Out No longe r eligible based on patient's age to complete this topic HIB VACCINE Aged Out No longer eligi ble based on patient's age to complete this topic HPV VACCINE Aged Out No longer eligi ble based on patient's age to complete this topic MENINGOCOCCAL (Group B) VACCINE Aged Out No longer eligible b ased on patient's age to complete this topic MENINGOCOCCAL VACCINE Aged Out No monalisa rosalio eligible based on patient's age to complete this topic Insurance Payer Benefit Plan / Group Subscriber ID Effective Dates Phone Address Type UHC MANAGED MEDICARE ADV [facility] MEDICARE ADV [id number] Effective for all dates [address] [address] [place] [address] Medicare-Ma naged Care SELF PAY NO INSURANCE SELF PAY NO INSURANCE Effective for all dates [facility], [place] Self Pay [facility] MANAGED MEDICARE ADV [facility] MEDICARE ADV [id number] Effective for all dates [address] [address] [place] [address] Medicare-Ma naged Care SELF PAY NO INSURANCE SELF PAY NO INSURANCE Effective for all dates [facility] [place] Self Pay [facility] MANAGED MEDICARE ADV [facility] MEDICARE ADV [id number] Effective for all dates [address] [address] [place] [address] Medicare-Ma naged Care SELF PAY NO INSURANCE SELF PAY NO INSURANCE Effective for all dates [facility] [place] Self Pay [facility] MANAGED MEDICARE ADV [facility] MEDICARE ADV [id number] Effective for all dates [address] [address] [place] [address] Medicare-Ma naged Care SELF PAY NO INSURANCE SELF PAY NO INSURANCE Effective for all dates [facility] Self Pay MEDICARE WPS MEDICARE PART B [id number] 05/27/2004-Pres ent [address] [address] [place] [address] Medicare MEDICARE MEDICARE PART A AND B [id number] 05/27/2004-Pres ent [address] [place] [address] Medicare [employer] BLUE CROSS MEDICARE SUPPLEMENT [id number] 02/26/2014-Pres ent [address] [place] [address] PPO Care Teams Obstetrician Relationship Specialty Start Date End Date Noel Littlejohn MD [address] [place] [address] PCP - General 05/15/18
--- OUTSIDE RECORDS SUMMARY | 2024-03-24 11:43 | XMS_ITS | Encounter Summary ---
Author Organization [facility] Address [address] [place] [address] Care Team Providers Care Study Assistant Name Role Phone Noel Littlejohn MD Primary Care Provider [phone] Encounter Details Date Type Department Care Team (Late st Contact Info) Description 10/23/2022 Lab Requisition [facility] - DermPath Lab [address] [place] [id number] Brian Black MD [address] [place] [address] Social History Tobacco Use Types Packs/Day Years Used Date Smoking Tobacco: Never Smokeless Tobacco: Never Alcohol Use Standard Drinks/Week Comments Yes 0 (1 standard drink = 0.6 oz pur e alcohol) occasional Sex and Gender Information Value Date Recorded Sex Assigned at Not on file Gender Identity Not on file Sexual Orientation Not on file documented as of this encounter Plan of Treatment Not on file documented as of this encounter Procedures Procedure Name Priority Date/Time Associated Diagnosis Comments DERMATOPATHOLOGY Routine 10/23/2022 12:0 0 AM CDT documented in this encounter Results * DERMATOPATHOLOGY (10/23/2022 12:00 AM CDT) Case Report Dermatopathology Report ? Case: [id number] ? Authorizing Provider: ??Brian Black MD ?Collected: ? 10/23/2022 12:00 AM ? Ordering Location: ? [facility] DermPath Lab ? Received: ?10/24/2022 06:36 AM ? Pathologist: ? Stephani Haas, ? MD ? Specimen: ?Skin, right upper back ? 3 12:39 PM CDT DERMATOPATHOLOGY LABORATORY Final Diagnosis Specimen A. SKIN, right upper back: SEBORRHEIC KERATOSIS, INFLAMED (L82.0) POST-INFLAMMATORY PIGMENT ALTERATION (L81.9) 3 12:39 PM CDT DERMATOPATHOLOGY LABORATORY Clinical History Nevus vs SK vs MM Path#[id number] 3 12:39 PM CDT DERMATOPATHOLOGY LABORATORY Gross Description Specimen A: Received is one formalin filled container labeled with the patient's name and designated right upper back. The specimen consists of a shave biopsy measuring 8x6x1 mm. Jar 0. 08/30/202 3 12:39 PM CDT DERMATOPATHOLOGY LABORATORY Microscopic Description Specimen A. SKIN, right upper back: There is hyperkeratosis, parakeratosis, papillomatosis, and acanthosis of the epidermis. There is a lymphohistiocytic infiltrate within the papillary dermis that is focally lichenoid. There is abundant melanin within melanophages around the superficial vascular plexus. 3 12:39 PM CDT DERMATOPATHOLOGY LABORATORY Disclaimer An external and internal positive and negative controls are appropriate for the histochemical, immunohistochemical and immunofluorescence stain(s) in this case (if any), except where stated explicitly. The performance characteristics of the stain(s) cited in this report were developed and its performance characteristic determined by the Dermatopathology Laboratory at [facility], directed by Dr. Melissa Mccall. These tests need not be, and therefore are not, approved by the [place] Food and Drug Administration. The tests are used for clinical purposes. Billing Codes Specimen Charges Stain Charges 05113 1 3 12:39 PM CDT DERMATOPATHOLOGY LABORATORY Embedded Images 3 12:39 PM CDT DERMATOPATHOLOGY LABORATORY Pathology/Cytolog y TISSUE SPECIMEN FROM SKIN / Unknown 10/23/2022 10/24/2022 6:36 AM CDT Brian Black MD LAB - PATHOLOGY/CYTO LOGY ORDERABLES DERMATOPATHOLOGY LABORATORY [facility] Department of Dermatology [address], [address] [phone] documented in this encounter Visit Diagnoses Not on filedocumented in this encounter Care Teams Study Assistant Relationship Specialty Start Date End Date Noel Littlejohn MD [address] [place] [address] PCP - General 05/15/18 documented as of this encounter
--- OUTSIDE RECORDS SUMMARY | 2024-03-24 11:43 | XMS_ITS | Clinical Summary ---
Author Organization [facility] Address [address], [address] [address] Phone Care Team Providers Care Track Mechanic Name Role Phone Judson Velazquez DO Primary Care Provider Mihai Wagner DO Unavailable [phone] Medications Multiple Vitamin (MULTI-VITAMIN PO) Take 1 Tab by mouth daily. Active Flaxseed, Linseed, (FLAX SEED OIL PO) Take 1 Tab by mouth daily. Active glucosamine-cho ndroitin 500-400 MG Capsule Take 1 Cap by mouth daily. Active polyethylene glycol (MIRALAX) Powder Mix the entire bottle with 64 oz of a clear liquid. Use as directed by the office for colonoscopy prep. 255 g 7 Active omeprazole (PRILOSEC) 20 MG CAPSULE DELAYED RELEASE TAKE TWO CAPSULES BY MOUTH ONCE DAILY 180 Cap 3 9 Active famotidine (PEPCID) 20 MG Tablet Take 1 Tab by mouth 2 times daily. 90 Tab 3 0 Active Immunizations Immunization Administration Dates Next Due Covid-19, Mrna, Lnp-s, PF, 1 00 mcg/0.5 mL Dose (Moderna) 05/05/2020,04/08/2020 Family History Medical History Relation Name Comments Heart Disease Father Relation Name Status Comments Father Social History Tobacco Use Types Packs/Day Years Used Date Smoking Tobacco: Former Cigarettes 1 4 Smokeless Tobacco: Never Alcohol Use Standard Drinks/Week Comments Yes 0 (1 standard drink = 0.6 oz pur e alcohol) Sex and Gender Information Value Date Recorded Sex Assigned at Not on file Legal Sex Male 12:10 AM CDT Gender Identity Not on file Sexual Orientation Not on file Plan of Treatment Health Maintenance Due Date Last Done Comments Hepatitis C Virus (HCV) Screening 1945 TdaP Immunization 1945 Zoster Immunization (1 of 2) 05/18/1997 Pneumococcal Immunization (50+ years) (2 of 2 - PPSV23) 12/13/2016 12/14/2015 Respiratory Syncytial Virus (RSV) Immunization (Adult) (1 - 1-dose 75+ series) 05/18/2022 Influenza Immunization (#1) 10/28/202310/28, 11/28/2018, 11/13/2017, Additional history exists SARS-COV-2 Immunization ( season) 2023 05/05/2020, 04/08/2020 Pneumococcal Immunization Combined Discontinued 12/14/2015 Colonoscopy High Risk Discontinued 04/26/2017 Colonoscopy Discontinued 04/26/2017 Colorectal Cancer Screening Discontinued Cologuard Discontinued Hepatitis B Immunization Aged Out No longer eligible based on patient's age to complete this topic Immunochemical Fecal Occult Blood Discontinued Meningococcal Immunization (ACWY) Aged Out No longer eligible based on patient's age to complete this topic Rotavirus Immunization Aged Out No lo nger eligible based on patient's age to complete this topic Procedures Procedure Name Priority Date/Time Associated Diagnosis Comments COLONOSCOPY Routine 04/26/2017 from Last 3 Months or Most Recently Relevant to Health Maintenance Results * COLONOSCOPY (04/26/2017) Mihai Wagner DO PROCEDURE/MINOR SURGICAL ORDERA BLES Final Result from Last 3 Months or Most Recently Relevant to Health Maintenance Insurance MEDICARE [facility] Care Teams Track Mechanic Relationship Specialty Start Date End Date Judson Velazquez DO [address] [place] [address] [place] [address] PCP - General Internal Medicine 12/31/15 Mihai Wagner DO [address] [place] [address] [place] [address] Gastroenterology 12/31/15
--- OUTSIDE RECORDS SUMMARY | 2024-03-24 11:43 | XMS_ITS | Clinical Summary ---
Author Organization [facility] Address [facility] [place] [address] [place] [address] Care Team Providers Care Bell Neck Hammerer Name Role Phone Unavailable Primary Care Provider Unavailabl e Social History Tobacco Use Types Packs/Day Years Used Date Smoking Tobacco: Never Assessed Sex and Gender Information Value Date Recorded Sex Assigned at Not on file Legal Sex Male 8:17 PM CDT Gender Identity Not on file Sexual Orientation Not on file Plan of Treatment Health Maintenance Due Date Last Done Comments Hepatitis C 05/18/1963 DTaP, Tdap and Td Vaccines ( 1 - Tdap) 05/18/1966 Zoster Vaccines (1 of 2) 05/18/1997 Pneumococcal Vaccine: 65+ Ye ars (1 of 1 - PCV) 05/18/2012 RSV Immunization or 60+ Years (1 - 1-dose 75+ series) 05/18/2022 COVID-19 Vaccine ( - 2023-2 5 season) 2023 Influenza Adult (#1) 2023 Meningococcal B Vaccine Aged Out No l onger eligible based on patient's age to complete this topic Meningococcal Vaccine Aged Out No monalisa rosalio eligible based on patient's age to complete this topic RSV Immunizations Under 20 Months Aged Out No longer eligible based on patient's age to complete this topic
--- OUTSIDE RECORDS SUMMARY | 2024-03-24 11:43 | XMS_ITS | Patient Health Summary ---
Author Organization [facility] Address [address] [facility] [place] [address] Care Team Providers Care Client Service Coordinator Name Role Phone Noel Littlejohn MD Primary Care Provider [phone] Note from [facility],non-owned Affiliates and Associated Physician Practices is amultiple site organization consisting of ambulatory clinics and hospital sitesin [place], [place], [place] and [place]. This disclosure is being madepursuant to the Care Everywhere program and may not contain all information available regarding this patient. Last updated 17.[facility] Allergies No known active allergies Medications * Be aware that medications may not be up to date on this document. Alwaysverify current medications with the patient. * multivitamin daily (THERAGRAN) tablet Take 1 (one) tablet by mouth daily with food * omeprazole (PRILOSEC) 20 MG capsule Take 1 (one) capsule by mouth 2 times daily, before breakfast and supper * [place] 3-6-9 Fatty Acids (OMEGA 3-6-9 COMPLEX) CAPS Take by mouth at bedtime * metoprolol succinate XL 24hr (Toprol XL) 25 MG tablet(Started 05/12/2022) Take 1 (one) tablet by mouth once daily Active Problems Problem Noted Date Diagnosed Date [...] Mass Index 31.57 11/21/2022 11:06 AM CDT Procedures * PAIN MANAGEMENT PROCEDURE TIME(Performed 11/21/2022) Performed for Thoracic spondylosis * PAIN MANAGEMENT PROCEDURE TIME(Performed 11/07/2022) Performed for Thoracic spondylosis * DERMATOPATHOLOGY(Performed 10/23/2022) * PAIN MANAGEMENT PROCEDURE TIME(Performed 10/17/2022) Performed for Thoracic spondylosis * MRI THORACIC SPINE WO CONTRAST(Performed 09/15/2022) Performed for Thoracic radiculopathy * PAIN MANAGEMENT PROCEDURE TIME(Performed 02/08/2021) Performed for Lumbar radiculopathy * PAIN MANAGEMENT PROCEDURE TIME(Performed 04/16/2020) Performed for Lumbar radiculopathy * MRI LUMBAR SPINE WO CONTRAST(Performed 03/26/2020) Performed for Other intervertebral disc degeneration, lumbosacral region * PAIN MANAGEMENT PROCEDURE TIME(Performed 11/30/2017) Performed for Spondylosis of lumbosacral region without myelopathy or radiculopathy * PAIN MANAGEMENT PROCEDURE TIME(Performed 10/30/2017) Performed for Spondylosis 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 * PAIN MANAGEMENT PROCEDURE TIME(Performed 10/16/2017) 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, lumbar region * PAIN MANAGEMENT PROCEDURE TIME(Performed 09/21/2017) Performed for Lumbosacral spondylosis without myelopathy * PAIN MANAGEMENT PROCEDURE TIME(Performed 08/24/2017) Performed for Sacroiliitis, not elsewhere classified (HCC) * PAIN MANAGEMENT PROCEDURE TIME(Performed 11/30/2015) Performed for L-S radiculopathy * PAIN MANAGEMENT PROCEDURE TIME(Performed 11/16/2015) Performed for Sacroiliitis (HCC) * MRI LUMBAR SPINE WWO CONTRAST(Performed 10/14/2015) Performed for Lumbar radicular pain, S/P lumbar fusion * ISTAT BUN + CREATININE BLOOD(Performed 10/14/2015) * XR LUMBAR SPINE 2 OR 3VW(Performed 10/04/2015) Performed for Lumbar radicular pain, S/P lumbar fusion * PAIN MANAGEMENT PROCEDURE TIME(Performed 06/23/2014) Performed for Primary localized osteoarthrosis, lower leg, right * PAIN MANAGEMENT PROCEDURE TIME(Performed 06/16/2014) Performed for Primary localized osteoarthrosis, lower leg, right * PAIN MANAGEMENT PROCEDURE TIME(Performed 06/09/2014) Performed for Primary localized osteoarthrosis, lower leg, unspecified laterality * DERMATOPATHOLOGY(Performed 09/02/2013) * DERMATOPATHOLOGY(Performed 01/14/2013) * PAIN MANAGEMENT PROCEDURE TIME(Performed 11/22/2012) Performed for Primary localized osteoarthrosis, lower leg * PAIN MANAGEMENT PROCEDURE TIME(Performed 11/15/2012) Performed for Primary localized osteoarthrosis, lower leg * PAIN MANAGEMENT PROCEDURE TIME(Performed 11/08/2012) Performed for Primary localized osteoarthrosis, lower leg * PAIN MANAGEMENT PROCEDURE TIME(Performed 10/11/2012) Performed for Thoracic Or Lumbosacral Neuritis Or Radiculitis, Unspecified * PAIN MANAGEMENT PROCEDURE TIME(Performed 09/20/2012) Performed for (Hcc) * PAIN MANAGEMENT PROCEDURE TIME(Performed 08/27/2012) Performed for (Hcc) * MRI LUMBAR SPINE WO CONTRAST(Performed 07/24/2012) Results * PAIN MANAGEMENT PROCEDURE TIME (11/21/2022 12:14 PM CDT) Only the most recent of21 resultswithin the time period is included. Anatomical Region Laterality Modality X-Ray Angiograph y Narrative 11/21/2022 12:15 PM CDT Chance Ryan MD ? 11/21/2022 12:15 PM The patient was identified in the holding area and the operative permit was explained and signed. I have discussed with the patient the risks, benefits, side effects and complications of fluoroscopically guided thoracic medial branch radiofrequency ablation. I have answered the patient's questions regarding the procedure and have given the patient the opportunity to refuse the procedure. I also have discussed alternative methods of treatment. The patient stated understanding of the procedure and wished to proceed with fluoroscopically guided thoracic medial branch radiofrequency ablation. The patient was taken to the fluoroscopic suite and placed on a C-arm table in the prone position with the appropriate monitors placed. A nurse was in attendance for the duration of the procedure to carefully monitor the patient. Please refer to the nursing record for vital sign documentation and for any doses of sedatives and medications. I was present and gave the order for any medications given to the patient. The patients thoracolumbar area was prepped and draped in the usual sterlile fashon. Attention was turned to theT9 level on the right side and oblique fluoroscopy was used to identify the target at the base of the transverse process, where it joins the superior articular process. After 1cc of 1% Lidocaine skin anesthesia by a 25 gauge needle, a 22 gauge 10 cm radiofrequency cannula with a 5 mm active tip was advanced to the bony margin of this target. This procedure was then repeated at the T10 and T11. Lateral fluoroscopy was utilized in order to confirm final posterior placement away from the nerve roots at all levels before testing. Motor testing was conducted at 2 hertz and up to 3.0 volts at all levels and no abdominal or lower extremity movement was noted. Additionally, the patient did have some paraspinous muscle contraction at each level. After negative aspiration of blood or CSF, 1 cc of 0.25% Bupivacaine was administered at each level. Subsequently, radiofrequency lesioning was carried out at each level for 80 degrees Celsius and 60 seconds. The patient was awake throughout the lesioning process and did not note any leg pain throughout the procedure. Following the procedure the needles were removed intact and hemostasis appreciated. Meaningful verbal contact was maintained throughout. The patient tolerated the procedure well and was monitored for an appropriate period of time before being discharged., Estimated blood loss during procedure 0 ml Chance Ryan MD DIAGNOSTIC IMAGIN G ORDERABLES * DERMATOPATHOLOGY (10/23/2022 12:00 AM CDT) Only the most recent of3 resultswithin the time period is included. Case Report Dermatopathology Report ? Case: [id number] ? Authorizing Provider: ??Brian Black MD ?Collected: ? 10/23/2022 12:00 AM ? [facility] ? [facility] ? Received: ?10/24/2022 06:36 AM ? Pathologist: ? Stephani Haas, ? MD ? Specimen: ?Skin, right upper back ? 3 12:39 PM CDT DERMATOPATHOLOGY LABORATORY Final Diagnosis Specimen A. SKIN, right upper back: SEBORRHEIC KERATOSIS, INFLAMED (L82.0) POST-INFLAMMATORY PIGMENT ALTERATION (L81.9) 3 12:39 PM CDT DERMATOPATHOLOGY LABORATORY Clinical History Nevus vs SK vs MM Path#[id number] 12:39 PM CDT DERMATOPATHOLOGY LABORATORY Gross Description Specimen A: Received is one formalin filled container labeled with the patient's name and designated right upper back. The specimen consists of a shave biopsy measuring 8x6x1 mm. Jar 0. 12:39 PM CDT DERMATOPATHOLOGY LABORATORY Microscopic Description Specimen A. SKIN, right upper back: There is hyperkeratosis, parakeratosis, papillomatosis, and acanthosis of the epidermis. There is a lymphohistiocytic infiltrate within the papillary dermis that is focally lichenoid. There is abundant melanin within melanophages around the superficial vascular plexus. 12:39 PM CDT DERMATOPATHOLOGY LABORATORY Disclaimer An external and internal positive and negative controls are appropriate for the histochemical, immunohistochemical and immunofluorescence stain(s) in this case (if any), except where stated explicitly. The performance characteristics of the stain(s) cited in this report were developed and its performance characteristic determined by the Dermatopathology Laboratory at [facility], directed by Dr. Melissa Mccall. These tests need not be, and therefore are not, approved by the [place] Food and Drug Administration. The tests are used for clinical purposes. Billing Codes Specimen Charges Stain Charges 01129 1 3 12:39 PM CDT DERMATOPATHOLOGY LABORATORY Embedded Images 12:39 PM CDT DERMATOPATHOLOGY LABORATORY Pathology/Cytolog y TISSUE SPECIMEN FROM SKIN / Unknown 10/23/2022 10/24/2022 6:36 AM CDT Brian Black MD LAB - PATHOLOGY/CYTO LOGY ORDERABLES DERMATOPATHOLOGY LABORATORY [facility] - Department of Dermatology [address], [address] [phone] * MRI THORACIC SPINE WO CONTRAST (09/15/2022 11:19 AM CDT) Anatomical Region Laterality Modality Chest Magnetic Resonan ce 09/15/2022 4:43 PM CDT Impressions 09/15/2022 4:53 PM CDT IMPRESSION: 1. Focal disc protrusion into the left neural foramen of the T1-2 level. > Dictated by Dr. Michael Horne. > Interpreting Provider: Michael Horne MD on 09/15/2022 4:53 PM Narrative 09/15/2022 4:53 PM CDT EXAMINATION: Magnetic resonance imaging (MRI) of the thoracic spine without contrast HISTORY: M54.14: Radiculopathy, thoracic region TECHNIQUE: MRI of the thoracic spine was performed without contrast according to standard protocol. Sagittal and coronal sequences are submitted. COMPARISON: None FINDINGS: The alignment is normal. Vertebral bodies are normal in height without evidence of compression fractures. Marrow signal intensity is normal. The spinal cord appears normal. No central canal stenosis is seen. Mild multilevel degenerative changes of the facets are noted. A focal disc protrusion into the left neuroforamen of the T1-2 level causes a mild central canal narrowing. No soft tissue abnormality is identified. Procedure Note Michael Horne MD - 09/15/2022 EXAMINATION: Magnetic resonance imaging (MRI) of the thoracic spinewithout contrast HISTORY: M54.14: Radiculopathy, thoracic region TECHNIQUE: MRI of the thoracic spine was performed without contrast according to standard protocol. Sagittal and coronal sequences are submitted. COMPARISON: None FINDINGS: The alignment is normal. Vertebral bodies are normal in height without evidence of compression fractures. Marrow signal intensity is normal.The spinal cord appears normal. No central canal stenosis is seen. Mild multilevel degenerative changes of the facets are noted. A focal disc protrusion into the left neuroforamen of the T1-2 level causes a mild central canal narrowing. No soft tissue abnormality is identified. IMPRESSION: 1. Focal disc protrusion into the left neural foramen of the T1-2 level. > Dictated by Dr. Michael Horne. > Interpreting Provider: Michael Horne MD on 09/15/2022 4:53 PM Chance Ryan MD MR ORDERABLES * MRI LUMBAR SPINE WO CONTRAST (03/26/2020 12:53 PM TAX ANALYST) Only the most recent of2 resultswithin the time period is included. Anatomical Region Laterality Modality Spine Magnetic Resonan ce 03/26/2020 1:37 PM TAX ANALYST Impressions 03/26/2020 1:57 PM TAX ANALYST Patient has undergone prior lumbar spinal fusion with metallic instrumentation at L4-5. There is no significant stenosis at the surgical level. Disc bulge and facet and ligamentous hypertrophy at L2-3 have progressed since prior examination of 2015, now resulting in a moderate to severe central canal and bilateral lateral recess stenosis. Disc bulge and facet arthropathy at L3-4 have progressed mildly since prior examination and now result in a mild central canal stenosis and mild to moderate bilateral lateral recess stenosis, right greater than left. Edited by Cassie Main on 03/26/2020 1:56 PM *Reading Radiologist: Vero Forrester on 03/26/2020 at 1:57 PM Narrative 03/26/2020 1:57 PM TAX ANALYST MRI LUMBAR SPINE INDICATION: Back and right posterior hip pain. Prior back surgery. COMPARISON: MRI lumbar spine October 14, 2015, radiographic examination of lumbar spine October 04, 2015. TECHNIQUE: Sagittal and axial T1 and T2. Coronal T2, sagittal STIR. FINDINGS: Previous radiographic examination of the lumbar spine indicates that this patient has five lumbar vertebral bodies. Careful correlation between this and the subsequent radiographic examinations of the lumbar spine is recommended to ensure consistent numbering of disc spaces. This is particularly important if surgery is considered. Alignment: Patient has undergone posterior lumbar spinal fusion with metallic instrumentation at L4-5. There is complete fusion across the L4-5 disc space. Alignment is within normal limits. Marrow: There is mild degenerative marrow change at the anterior superior L4 vertebral body. No compression or other fracture deformity is seen. Spinal cord: Normal in morphology and in signal intensity. Terminates at approximately T12-L1. Disc spaces: There is moderate loss of disc height at L2-3 and mild loss of disc height at L3-4 with diffuse disc bulge at each of these levels. The following levels were directly imaged in the axial plane: T12-L1: Mild facet arthropathy is present bilaterally. There is no significant disc herniation or stenosis. L1-L2: Mild facet arthropathy without significant stenosis. L2-L3: Diffuse disc bulge, facet hypertrophy, and ligamentous thickening are increased in severity when compared to prior examination of 2016 and now result in moderate to severe central canal and bilateral lateral recess stenosis. Neural foramina are moderately narrowed on the right and mildly to moderately narrowed on the left. L3-L4: Diffuse disc bulge and bilateral facet arthropathy result in a mild central canal stenosis, and a mild to moderate bilateral lateral recess stenosis, right greater than left. This has progressed mildly since prior examination of 2015. L4-L5: This level has been surgically fused. No significant stenosis is seen. L5-S1: Mild facet arthropathy is present on the left without significant stenosis. Procedure Note Vero Forrester MD - 03/26/2020 MRI LUMBAR SPINE INDICATION: Back and right posterior hip pain. Prior back surgery. COMPARISON: MRI lumbar spine October 14, 2015, radiographic examination of lumbar spine October 04, 2015. TECHNIQUE: Sagittal and axial T1 and T2. Coronal T2, sagittal STIR. FINDINGS: Previous radiographic examination of the lumbar spine indicates that this patient has five lumbar vertebral bodies. Careful correlation between this and the subsequent radiographic examinations of the lumbar spine is recommended to ensure consistent numbering of disc spaces. This is particularly important if surgery is considered. Alignment: Patient has undergone posterior lumbar spinal fusion with metallic instrumentation at L4-5. There is complete fusion across the L4-5 disc space. Alignment is within normal limits. Marrow: There is mild degenerative marrow change at the anterior superior L4 vertebral body. No compression or other fracture deformity is seen. Spinal cord: Normal in morphology and in signal intensity. Terminates at approximately T12-L1. Disc spaces: There is moderate loss of disc height at L2-3 and mild loss of disc height at L3-4 with diffuse disc bulge at each of these levels. The following levels were directly imaged in the axial plane: T12-L1: Mild facet arthropathy is present bilaterally. There is no significant disc herniation or stenosis. L1-L2: Mild facet arthropathy without significant stenosis. L2-L3: Diffuse disc bulge, facet hypertrophy, and ligamentous thickening are increased in severity when compared to prior examination of 2016 and now result in moderate to severe central canal and bilateral lateral recess stenosis. Neural foramina are moderately narrowed on the right and mildly to moderately narrowed on the left. L3-L4: Diffuse disc bulge and bilateral facet arthropathy result in a mild central canal stenosis, and a mild to moderate bilateral lateral recess stenosis, right greater than left. This has progressed mildly since prior examination of 2015. L4-L5: This level has been surgically fused. No significant stenosis is seen. L5-S1: Mild facet arthropathy is present on the left without significant stenosis. IMPRESSION Patient has undergone prior lumbar spinal fusion with metallic instrumentation at L4-5. There is no significant stenosis at the surgical level. Disc bulge and facet and ligamentous hypertrophy at L2-3 have progressed since prior examination of 2015, now resulting in a moderate to severe central canal and bilateral lateral recess stenosis. Disc bulge and facet arthropathy at L3-4 have progressed mildly since prior examination and now result in a mild central canal stenosis and mild to moderate bilateral lateral recess stenosis, right greater than left. Edited by Cassie Main on 03/26/2020 1:56 PM *Reading Radiologist: Vero Forrester on 03/26/2020 at 1:57 PM Chance Ryan MD MR ORDERABLES * MRI LUMBAR SPINE W WO CONTRAST (10/14/2015 2:32 PM CDT) Anatomical Region Laterality Modality Spine Magnetic Resonan ce 10/14/2015 3:16 PM CDT Impressions 10/14/2015 4:06 PM CDT MILD TO MODERATE BILATERAL LATERAL RECESS AND BILATERAL FORAMINAL STENOSIS AT L2-L3. MODERATE BILATERAL FORAMINAL STENOSIS AT L3-L4. NO POSTSURGICAL COMPLICATIONS AT THE SITE OF L4-L5 FUSION. ADDITIONAL SPONDYLITIC DISEASE DISCUSSED ABOVE. Edited by aSmeera Alvarado on 10/14/2015 3:39 PM Narrative 10/14/2015 4:06 PM CDT MRI LUMBAR SPINE WITH AND WITHOUT INTRAVENOUS CONTRAST CLINICAL INDICATION: Lumbar radiculopathy. Severe low back pain. History of prior lumbar fusion in 2003. COMPARISON: Lumbar spine x-ray series 10/04/2015. TECHNIQUE: Multiplanar, multisequence MR imaging of the lumbar spine was performed before and after administration of 20 mL Dotarem intravenous contrast. FINDINGS: There has been prior bilateral transpedicular and interbody fusion at L4-L5. There are no acute-appearing postsurgical complications. Alignment is anatomic. Vertebral body height and bone marrow signal are within normal limits. The conus medullaris terminates at T12-L1. L1-L2: No canal or foraminal stenosis. L2-L3: Mild to moderate bilateral facet hypertrophy. Mild thickening of the ligamentum flavum. Mild annular bulge. Mild to moderate bilateral lateral recess stenosis. Mild canal stenosis. Mild to moderate bilateral foraminal stenosis. L3-L4: Moderate bilateral facet hypertrophy. Moderate bilateral foraminal stenosis. Mild bilateral lateral recess stenosis. Mild canal stenosis. L4-L5: No abnormal enhancement. No canal or foraminal stenosis. No acute-appearing postsurgical complications. L5-S1: No canal or foraminal stenosis. Procedure Note Radhika Gongora MD - 10/14/2015 MRI LUMBAR SPINE WITH AND WITHOUT INTRAVENOUS CONTRAST CLINICAL INDICATION: Lumbar radiculopathy. Severe low back pain. History of prior lumbar fusion in 2003. COMPARISON: Lumbar spine x-ray series 10/04/2015. TECHNIQUE: Multiplanar, multisequence MR imaging of the lumbar spine was performed before and after administration of 20 mL Dotarem intravenous contrast. FINDINGS: There has been prior bilateral transpedicular and interbody fusion at L4-L5. There are no acute-appearing postsurgical complications. Alignment is anatomic. Vertebral body height and bone marrow signal are within normal limits. The conus medullaris terminates at T12-L1. L1-L2: No canal or foraminal stenosis. L2-L3: Mild to moderate bilateral facet hypertrophy. Mild thickening of the ligamentum flavum. Mild annular bulge. Mild to moderate bilateral lateral recess stenosis. Mild canal stenosis. Mild to moderate bilateral foraminal stenosis. L3-L4: Moderate bilateral facet hypertrophy. Moderate bilateral foraminal stenosis. Mild bilateral lateral recess stenosis. Mild canal stenosis. L4-L5: No abnormal enhancement. No canal or foraminal stenosis. No acute-appearing postsurgical complications. L5-S1: No canal or foraminal stenosis. IMPRESSION MILD TO MODERATE BILATERAL LATERAL RECESS AND BILATERAL FORAMINAL STENOSIS AT L2-L3. MODERATE BILATERAL FORAMINAL STENOSIS AT L3-L4. NO POSTSURGICAL COMPLICATIONS AT THE SITE OF L4-L5 FUSION. ADDITIONAL SPONDYLITIC DISEASE DISCUSSED ABOVE. Edited by Sameera Alvarado on 10/14/2015 3:39 PM Ana Laura Dominguez FRUIT DISTRIBUTOR-PIPELINE EXECUTIVE MR ORDERABLES * ISTAT BUN + CREATININE BLOOD (10/14/2015 1:34 PM CDT) [facility] BUN Venous POCT 11 9 - 20 mg/dL 10/14/2015 1:42 PM CDT [facility] Creatinine Venous POCT 1.0 0.5 - 1.3 mg/dL 10/14/2015 1:42 PM CDT [facility] Site Stas Line 10/14/2015 1:42 PM CDT [facility] Sample iSTAT VENOUS 10/14/2015 1:42 PM CDT [facility] CPB iSTAT No 10/14/2015 1:42 PM CDT [facility] Blood BLOOD SPECIMEN / Unknown 10/14/2015 1:34 PM CDT 10/14/2015 1:42 PM CDT Ana Laura Dominguez APRN-PIPELINE EXECUTIVE LAB - [facility] CARE ORDERABLES [facility] [address] [id number] * XR LUMBAR SPINE 2 OR 3 VW (10/04/2015 11:56 AM CDT) Anatomical Region Laterality Modality Spine Radiographic Sherin ging 10/04/2015 12:1 8 PM CDT Narrative 10/04/2015 12:21 PM CDT Lumbosacral Spine 3 Views INDICATION: Low back pain, no known injury FINDINGS: ??There has been prior posterior decompression and fusion at L4-5. No hardware or vertebral body fracture is identified. There is focal demineralization involving the inferior endplate of L4, nonspecific. There is mild disc space narrowing at L2-3 with anterior osteophyte formation along the entirety of the lumbar spine. Procedure Note Andria Shaffer MD - 10/04/2015 Lumbosacral Spine 3 Views INDICATION: Low back pain, no known injury FINDINGS: There has been prior posterior decompression and fusion at L4-5. No hardware or vertebral body fracture is identified. There is focal demineralization involving the inferior endplate of L4, nonspecific. There is mild disc space narrowing at L2-3 with anterior osteophyte formation along the entirety of the lumbar spine. Ana Laura Dominguez APRN-PIPELINE EXECUTIVE DIAGNOSTIC IM AGING ORDERABLES Care Teams Client Service Coordinator Relationship Specialty Start Date End Date Noel Littlejohn MD [address] [place] [id number] PCP - General 05/15/18
== END 2024-03-24 10:41 | disposition home or self-care (01) ==
PROVIDERS: PCP Family Medicine; Visit Provider Physician Assistant
DX: M25.552 Pain in left hip (principal)
CPT/HCPCS: 73502

== ENCOUNTER 2024-06-14 09:38 | Outpatient (CLI) | payer MEDICARE, SELFPAY ==
--- NOTE | ~2024-06-14 | MR_ITS ---
MRI of the cervical spine Clinical History: Post procedural pain Technique: Axial T2-weighted and gradient images, and sagittal T1-weighted, T2-weighted, and STIR luis armando ges were acquired. Findings: No acute fracture or subluxation seen. There is fusion across the C5-C6 disc space. No susp icious bone marrow signal abnormality seen. There is advanced degenerative change at the articulation of the odontoid process with the anterior arch of C1. At C2-C3, there is mild degenerative disc narrowing. There is minimal disc osteophyte complex and min imal facet arthropathy. No central canal stenosis, cord compression, or definite neural foraminal adelfo rowing. At C3-C4, there is minimal disc osteophyte complex. No canal stenosis, cord compression or neural for aminal narrowing. At C4-C5, there is moderate degenerative disc narrowing. There is disc osteophyte complex, most prono unced in the right paracentral region. No arnaldo canal stenosis or cord compression. Probable bilatera l neural foraminal narrowing. There is bilateral facet arthropathy. At C5-C6, there is disc fusion without disc bulge or herniation. There is left neural foraminal narro wing. Right neural foramen preserved. No canal stenosis or cord compression. At C6-C7, there is mild degenerative disc narrowing. There is diffuse disc osteophyte complex. No fra nk canal stenosis or cord compression. There is bilateral neural foraminal narrowing, right worse hallie n left. No abnormal signal seen in the spinal cord. Paravertebral soft tissues are unremarkable. Impression: Moderate degenerative spondylosis overall, as above. Fusion across the C5-C6 disc space. Reviewed, dictated and finalized at [facility]. Impression: Moderate degenerative spondylosis overall, as above. Fusion across the C5-C6 disc space.
== END 2024-06-14 09:39 | disposition home or self-care (01) ==
LOC: MICIMG 09:39
PROVIDERS: PCP Family Medicine; Visit Provider Student in an Organized Health Care Education/Training Program
DX: M43.02 Spondylolysis, cervical region (principal); M43.22 Fusion of spine, cervical region; G89.18 Other acute postprocedural pain; Z98.1 Arthrodesis status
CPT/HCPCS: 72141

== ENCOUNTER 2025-02-08 07:00 | Outpatient (CLI) | payer MEDICARE, SELFPAY ==
--- NOTE | ~2025-02-08 | MR_ITS ---
EXAMINATION: MR brain/brain stem wo con DATE: 02/08/2025 07:59 INDICATION: Headache, unspecified. TECHNIQUE: Magnetic resonance imaging (MRI) of the brain and brainstem was performed without intravenous contrast. COMPARISON: Brain MRI 03/09/2018, head CT 12/28/2023 FINDINGS: There are scattered areas of nonspecific increased T2-weighted signal intensity in the cerebral white matter and marsha. There is no intracranial hemorrhage, acute infarction, or abnormal intracranial mass lesion. The ventricles are normal in size. There are likely changes of ocular lens replac ement surgeries. There is mild mucosal thickening in the paranasal sinuses. The mastoid air cells are normal. IMPRESSION: 1. Mild nonspecific cerebral white matter disease and pontine disease, which likely represents chronic small vessel ischemic disease. Reviewed, dictated and finalized at location E. RONMENTAL ENGINEER IMPRESSION: 1. Mild nonspecific cerebral white matter disease and pontine disease, which odell moore represents chronic small vessel ischemic disease.
--- OUTSIDE RECORDS SUMMARY | 2025-02-08 07:05 | XMS_ITS | Clinical Summary ---
Author Organization [facility] [address] Address [address] [place] [address] Care Team Providers Care Health Safety Engineer Name Role Phone Noel Littlejohn MD Primary Care Provider Allergies No known active allergies Medications multivitamin with minerals tablet Take 1 tablet by mouth daily Active fish,bora,flax oils-om3,6,9no1 400-400-400 mg capsuleIndicati ons:supplement Take 1 tablet by mouth nightly Active clopidogreL (PLAVIX) 75 mg tablet Take 1 tablet (75 mg total) by mouth daily 12/11/[address] (PROTONIX) 40 mg EC tablet Take 1 tablet (40 mg total) by mouth every morning 12/11/2023 Active Active Problems Problem Noted Date Diagnosed Date Vestibular migraine 12/14/2021 Heart valve replaced by other means 05/13/2019 Aftercare following surgery of the circulatory s ystem 05/06/2019 Bicuspid aortic valve 05/06/2019 Encounter for follow-up for aortic valve replace ment 04/24/2019 Nonrheumatic aortic valve stenosis 04/16/2018 Pryor's esophagus 07/21/2010 Surgical History Surgery Date Site/Laterality Comments KNEE ARTHROCENTESIS 02/26/1973 - 02/25/1974 Bilateral ROTATOR CUFF REPAIR Bilateral LUMBAR FUSION 02/26/2002 - 02/25/2003 CERVICAL FUSION 02/26/1998 - 02/25/1999 ACHILLES TENDON SURGERY Bilateral RADIOFREQUENCY ABLATION NERVES 02/26/2017 - 02/25/2018 Lumbar levels one through four CATARACT EXTRACTION, BILATERAL 02/26/2015 - 02/26/2016 AORTIC VALVE REPLACEMENT 04/03/2019 Medical History Medical History Date Comments TIA (transient ischemic attack) 2019 Negative workup Pryor's esophagus 2010 Treated with endoscopic ablation Arthritis Aortic stenosis Squamous cell carcinoma of skin Kidney stones Family History Medical History Relation Name Comments Heart disease Father Stroke Maternal Grandfather Cancer Paternal Grandmother Relation Name Status Comments Father Alive Maternal Grandfather Mother (Age 93) Paternal Grandmother Social History Tobacco Use Types Packs/Day Years Used Date Smoking Tobacco: Former Smokeless Tobacco: Never Tobacco Cessation:Counseling Given: Not Answered Alcohol Use Standard Drinks/Week Comments Yes 0 (1 standard drink = 0.6 oz pur e alcohol) 0-4 daily Sex and Gender Information Value Date Recorded Sex Assigned at Not on file Legal Sex Male 12:53 AM CLIENT SERVICES DIRECTOR Gender Identity Not on file Sexual Orientation Not on file Occupation Industry Job Start Date Job End Date retired Not on file Not on file Not on file Last Filed Vital Signs Vital Sign Reading Time Taken Comments Blood Pressure 142/70 03/10/2024 11:19 AM CLIENT SERVICES DIRECTOR Pulse 77 03/10/2024 11:19 AM CLIENT SERVICES DIRECTOR Temperature 36.7 C (98.1 F) 12/05/2022 12:10 PM CDT Respiratory Rate 18 05/06/2019 9:31 AM CDT Oxygen Saturation 93% 03/10/2024 11:19 AM CLIENT SERVICES DIRECTOR Inhaled Oxygen Concentration - - Weight 103.9 kg (229 lb) 03/10/2024 11:19 AM CLIENT SERVICES DIRECTOR Height 175.3 cm (5' 9) 03/10/2024 11:19 AM CLIENT SERVICES DIRECTOR Body Mass Index 33.82 03/10/2024 11:19 AM CLIENT SERVICES DIRECTOR Plan of Treatment Health Maintenance Due Date Last Done Comments Depression Screening 1945 Fall Risk Assessment 1945 Hepatitis C Screening 1945 DTaP/Tdap/Td Vaccine (1 - Tdap) 05/18/1958 Hepatitis B Screening 05/18/1965 Zoster Vaccine (1 of 2) 05/18/1997 Abdominal Aortic Aneurysm (A AA) Screen 05/18/2012 Well Visit 65+ 05/18/2012 Pneumococcal vaccine 65+ (2 of 2 - PCV20 or PCV21) 12/13/2016 12/14/2015 Covid-19 Vaccine (3 - 2024-2 6 season) 2024 05/05/2020, 04/08/2020 Influenza Vaccine (#1) 2024 9, 11/14/2017, 11/13/2017, Additional history exists Medical Devices Implanted Type Area Deoiling Machine Operator Device Identifier Shelf Expiration Date Model / Serial / Lot [employer] [id number] Mervin-Rodney ds [place] Magna Ease 27mm Bioprosthesis - [id number] - [id number] Implanted:Qty: 1 on 04/04/2019 by Chance Varghese MD at [facility] Prosthetic Valve N/A: Aortic Valve [employer] 03/18/2022 [id number] / [id number] / Insurance MEDICARE [facility] MEDICARE [facility] MEDICARE ADVANTAGE Advance Directives For more information, please contact: [phone] * Full Code (Latest Code Status on File) Date Activated Date Inactivated Comments 04/12/2019 7:19 PM * Full Code Date Activated Date Inactivated Comments 04/04/2019 3:04 PM 04/10/2019 3:29 PM Care Teams Health Safety Engineer Relationship Specialty Start Date End Date Noel Littlejohn MD [address] [facility] [address] [place] [address] PCP - General Family Medicine 02/06/19
--- OUTSIDE RECORDS SUMMARY | 2025-02-08 07:05 | XMS_ITS | Encounter Summary ---
Author Organization [facility] Healthcare Address [address] [place] [address] Care Team Providers Care Chummer Name Role Phone Josr Riggs MD Primary Care Provider [phone] Noel Littlejohn MD Primary Care Provider Noel Littlejohn MD Primary Care Provider Noel Littlejohn MD Primary Care Provider Encounter Details Date Type Department Care Team (Late st Contact Info) Description 03/14/2018 Orders Only [facility] Health Information Management [address] [place] [id number] Scanning, Provider Social History Tobacco Use Types Packs/Day Years Used Date Smoking Tobacco: Never Assessed Sex and Gender Information Value Date Recorded Sex Assigned at Not on file Legal Sex Male 12:53 AM BREAKER BOSS Gender Identity Not on file Sexual Orientation Not on file documented as of this encounter Plan of Treatment Not on file documented as of this encounter Procedures Procedure Name Priority Date/Time Associated Diagnosis Comments CARDIOLOGY DOCUMENT SCAN 03/14/2018 4:21 AM BREAKER BOSS documented in this encounter Results * Cardiology Document Scan (03/14/2018 4:21 AM BREAKER BOSS) Anatomical Region Laterality Modality Other us Provider Scanning CV CARDIAC SERVICES PROCEDURES Final Result documented in this encounter Visit Diagnoses Not on filedocumented in this encounter Care Teams Chummer Relationship Specialty Start Date End Date Josr Riggs MD [address] [place] [address] PCP - General Neurology 03/25/18 04/15/18 Noel Littlejohn MD [address] [address] PCP - General Family Medicine 04/16/18 12/11/18 Noel Littlejohn MD [address] [address] PCP - General Family Medicine 12/12/18 02/05/19 Noel Littlejohn MD [address] [address] PCP - General Family Medicine 02/06/19 documented as of this encounter
--- OUTSIDE RECORDS SUMMARY | 2025-02-08 07:05 | XMS_ITS | Clinical Summary ---
Author Organization [facility] Address [address], [address] [address] Phone Care Team Providers Care Battery Assembler Name Role Phone Judson Velazquez DO Primary Care Provider Mihai Wagner DO Unavailable [phone] Medications Multiple Vitamin (MULTI-VITAMIN PO) Take 1 [...] 1945 Zoster Immunization (1 of 2) 05/18/1997 Medicare Initial AWV [id number] 05/27/2005 Pneumococcal Immunization (50+ years) (2 of 2 - PCV20 or PCV21) 12/13/2016 12/14/2015 Respiratory Syncytial Virus (RSV) Immunization (Adult) (1 - 1-dose 75+ series) 05/18/2022 Influenza Immunization (#1) 10/27/202410/28, 11/28/2018, 11/13/2017, Additional history exists SARS-COV-2 Immunization ( season) 2024 05/05/2020, 04/08/2020 Pneumococcal Immunization Combined Discontinued 12/14/2015 Colonoscopy Discontinued 04/26/2017 Colorectal Cancer Screening Discontinued Cologuard Discontinued Hepatitis B Immunization Aged Out No longer eligible based on patient's age to complete this topic Human Papillomavirus (HPV) Immunization Aged Out No longer eligible based [...] to Health Maintenance Results * COLONOSCOPY (04/26/2017) us Mihai Wagner DO PROCEDURE/MINOR SURGICAL ORDERA BLES Final Result from Last 3 Months or Most Recently Relevant to Health Maintenance Insurance MEDICARE [facility] Care Teams Battery Assembler Relationship Specialty Start Date End Date Judson Velazquez DO [address] [place] [address] [place] [address] PCP - General Internal Medicine 12/31/15 Mihai Wagner DO [address] [place] [address] [place] [address] Gastroenterology 12/31/15
--- OUTSIDE RECORDS SUMMARY | 2025-02-08 07:05 | XMS_ITS | Clinical Summary ---
Author Organization [facility] Address [address] [place] [address] Care Team Providers Care Condominium Association Manager Name Role Phone Unavailable Primary Care Provider [...] Td Vaccines ( 1 - Tdap) 05/18/1966 Pneumococcal Vaccine: 50+ Ye ars (1 of 1 - PCV) 05/18/1997 Zoster Vaccines (1 of 2) 05/18/1997 RSV Immunization or 60+ Years (1 - 1-dose 75+ series) 05/18/2022 COVID-19 Vaccine ( - 2024-2 6 season) 2024 Influenza Adult (#1) 2024 Hepatitis A Vaccines Aged Out No long er eligible based on patient's age to complete this topic Meningococcal B Vaccine Aged Out No l onger eligible based on patient's age to complete this topic Meningococcal Vaccine Aged Out No monalisa rosalio eligible based on patient's age to complete this topic RSV Immunizations Under 20 Months Aged Out No longer eligible based on patient's age to complete this topic
--- OUTSIDE RECORDS SUMMARY | 2025-02-08 07:06 | XMS_ITS | Clinical Summary ---
Author Organization [facility] Address [address] [place] [address] Care Team Providers Care Sexton Helper Name Role Phone Noel Littlejohn MD Primary Care Provider [phone] Source Comments [facility],non-owned Affiliates and Associated Physician Practices is amultiple site organization consisting of ambulatory clinics and hospital sitesin [place], [place], [place] and [place]. This disclosure is being madepursuant to the Care Everywhere program and may not contain all information available regarding this patient. Last updated 17.[facility] Allergies No known active allergies Medications * Be aware that medications may not be up to date on this document. Alwaysverify current medications with the patient. multivitamin daily (THERAGRAN) tablet Take 1 (one) tablet by mouth daily with food Active omeprazole (PRILOSEC) 20 MG capsule Take 1 (one) capsule by mouth 2 times daily, before breakfast and supper Active Bozman 3-6-9 Fatty Acids (OMEGA 3-6-9 COMPLEX) CAPS Take by mouth at bedtime Active metoprolol succinate XL 24hr (Toprol XL) 25 MG tablet Take 1 (one) tablet by mouth once daily 3 Active Active Problems Problem Noted Date Diagnosed Date Pain in joint, lower leg 11/22/2012 Primary localized osteoarthrosis, lower leg 10/27 Thoracic or lumbosacral neur itis or radiculitis, unspecified 10/11/2012 Sacroiliitis, not elsewhere classified 3 Family History Medical History Relation Name Comments CVA Father Dementia Mother Relation Name Status Comments Father Mother Social History Tobacco Use Types Packs/Day Years Used Date Smoking Tobacco: Never Smokeless Tobacco: Former Snuff Quit: 2022 Tobacco Cessation:Counseling Given: Not Answered Alcohol Use Standard Drinks/Week Comments Not Currently 4 (1 standard drink = 0.6 oz pur e alcohol) occasional Sex and Gender Information Value Date Recorded Sex Assigned at Not on file Legal Sex Male 1:06 PM CDT Gender Identity Not on file Sexual Orientation Not on file Occupation Industry Job Start Date Job End Date RETIRED Not on file Not on file Not on file Last Filed Vital Signs Vital Sign Reading Time Taken Comments Blood Pressure 127/67 07/17/2024 10:56 AM CDT Pulse 57 07/17/2024 10:56 AM CDT Temperature 36.8 C (98.2 F) 11/21/2022 11:06 AM CDT Respiratory Rate 16 11/21/2022 12:24 PM CDT Oxygen Saturation 97% 11/21/2022 12:24 PM CDT Inhaled Oxygen Concentration - - Weight 102.1 kg (225 lb) 07/17/2024 10:56 AM CDT Height 177.8 cm (5' 10) 07/17/2024 10:56 AM CDT Body Mass Index 32.28 07/17/2024 10:56 AM CDT Plan of Treatment Health Maintenance Due Date Last Done Comments HEPATITIS C SCREENING 05/14/1963 DTAP/TDAP/TD VACCINES (1 - Tdap) 05/18/1966 PNEUMOCOCCAL VACCINE 50+ (1 of 1 - PCV) 05/18/1997 ZOSTER VACCINE (1 of 2) 05/18/1997 Respiratory Syncytial Virus (RSV) Vaccine Pt: or over 60 yrs (1 - 1-dose 75+ series) 05/18/2022 DEPRESSION SCREENING 02/27/2024 MEDICARE AWV CALENDAR YEAR 2024 COVID-19 VACCINE (3 - 2024-2 6 season) 2024 05/05/2020, 04/08/2020 INFLUENZA VACCINE (#1) 2024 HEPATITIS B VACCINE Aged Out No longe r eligible based on patient's age to complete this topic HIB VACCINE Aged Out No longer eligi ble based on patient's age to complete this topic HPV VACCINE Aged Out No longer eligi ble based on patient's age to complete this topic MENINGOCOCCAL (Group B) VACCINE SHARED DECISION-MAKING Aged Out No longer eligible based on patient's age to complete this topic MENINGOCOCCAL GROUPS A/C/Y/W VACCINE Aged Out No longer eligible b ased on patient's age to complete this topic Insurance MEDICARE [facility] MANAGED MEDICARE ADV [facility] MANAGED MEDICARE ADV Care Teams Sexton Helper Relationship Specialty Start Date End Date Noel Littlejohn MD [address] [place], [place] [id number] PCP - General 05/15/18
--- OUTSIDE RECORDS SUMMARY | 2025-02-08 07:06 | XMS_ITS | Encounter Summary ---
Author Organization [facility] Care Team Providers Care Civil Engineering Director Name Role Phone Josr Riggs MD Primary Care Provider [phone] Noel Littlejohn MD Primary Care Provider Noel Littlejohn MD Primary Care Provider Noel Littlejohn MD Primary Care Provider Encounter Details Date Type Department Care Team (Latest Contact Info) Description 06/15/2017 Orders Only [facility]IN[facility] ProviderDavid MD [address] [place] [id number] Social History Tobacco Use Types Packs/Day Years Used Date Smoking Tobacco: Never Assessed Sex and Gender Information Value Date Recorded Sex Assigned at Not on file Legal Sex Male 12:53 AM ORTHOPEDIC SURGEON Gender Identity Not on file Sexual Orientation Not on file documented as of this encounter Plan of Treatment Not on file documented as of this encounter Procedures Procedure Name Priority Date/Time Associated Diagnosis Comments SCAN - LABS 10/02/2017 12:00 AM CDT documented in this encounter Results * SCAN - LABS (10/02/2017 12:00 AM CDT) Narrative 10/02/2017 12:00 AM CDT Ordered by an unspecified provider. us Historical Provider Final Res ult documented in this encounter Visit Diagnoses Not on filedocumented in this encounter Care Teams Civil Engineering Director Relationship Specialty Start Date End Date Josr Riggs MD [address] [place] [address] PCP - General Neurology 03/25/18 04/15/18 Noel Littlejohn MD [address] [facility] [address] [place] [address] PCP - General Family Medicine 04/16/18 12/11/18 Noel Littlejohn MD [address] [facility] [address] [place] [address] PCP - General Family Medicine 12/12/18 02/05/19 Noel Littlejohn MD [address] [facility] [address] [place] [address] PCP - General Family Medicine 02/06/19 documented as of this encounter
== END 2025-02-08 07:01 | disposition home or self-care (01) ==
PROVIDERS: PCP Family Medicine
DX: R90.82 White matter disease, unspecified (principal); G93.89 Other specified disorders of brain; R51.9 Headache, unspecified
CPT/HCPCS: 70551